=== PATIENT | male | born 1970 | race Caucasian/White ===

== ENCOUNTER 2016-04-15 15:17 | Emergency (ER) | payer MEDICAID ==
[2016-04-15] MEDS ORDERED: Ondansetron 4 MG Tab.DIS PO ONE (17:54)
[2016-04-15 18:08] VITALS: BP 136/84
--- NOTE | 2016-04-15 18:13 | EDM.PDOC ---
ED HPI GENERAL MEDICAL PROBLEM - General Chief Complaint: General Stated Complaint: ILLNESS Time Seen by Provider: 04/15/16 18:10 Source of Information: Reports: Patient, RN notes reviewed History Limitations: Reports: No limitations - History of Present Illness INITIAL COMMENTS - FREE TEXT/NARRATIVE: c/o nausea without vomiting, no diarrhea. Aches all over; lo grade temp. Had flu shot no shortness of breath. Treatments COMMERCIAL LOAN MANAGER: Reports: Other (see below) Other Treatments COMMERCIAL LOAN MANAGER: pepto-bismol Abdomen Pain Score (Numeric/FACES): 10 - Related Data Allergies Allergy/AdvReac Type Severity Reaction Status Date / Time No Known Allergies Allergy Verified 04/15/16 16:39 Home Meds: Home Meds Furosemide [Furosemide] 20 mg PO QAM 03/28/13 [History] Omeprazole [Omeprazole] 40 mg PO QAM 03/28/13 [History] Potassium Chloride [Klor-Con M20] 20 meq PO QAM 03/28/13 [History] Topiramate [Topamax] 50 mg PO BID 03/28/13 [History] Benztropine [Cogentin] 1 mg PO BID 09/23/13 [History] FLUoxetine HCl [Fluoxetine HCl] 20 mg PO DAILY 12/04/13 [History] Montelukast Sodium [Singulair] 10 mg PO BEDTIME 12/04/13 [History] SUMAtriptan Succinate [Sumatriptan Succinate] 50 mg PO ASDIRECTED PRN 12/04/13 [ History] traZODone HCl [Trazodone HCl] 150 mg PO QPM 12/04/13 [History] Ibuprofen [Motrin] 800 mg PO Q6HR 07/21/15 [History] ARIPiprazole [Abilify] 30 mg PO BEDTIME 01/03/16 [History] risperiDONE [risperiDONE] 2 mg PO BEDTIME 01/03/16 [History] traMADol HCl [Ultram] 1 tab PO TID 03/11/16 [History] Past Medical History - Past Health History Medical/Surgical History: Denies Medical/Surgical History HEENT History: Reports: Allergic rhinitis Cardiovascular History: Reports: Hypertension Gastrointestinal History: Reports: GERD Musculoskeletal History: Reports: Fracture, Other (see below) Other Musculoskeletal History: AC separation from previous injury in football 1988. Left shoulder fx with rotator cuff chip from a fall in Mid Dec 2015. Neurological History: Reports: Migraines Psychiatric History: Reports: Anxiety, Depression, Schizophrenia - Infectious Disease History Infectious Disease History: Reports: Chicken pox - Past Surgical History Head Surgeries/Procedures: Reports: None HEENT Surgical History: Reports: Oral surgery Social & Family History - Family History Family Medical History: Noncontributory - Tobacco Use Smoking Status *Q: Current Every Day Smoker Years of Tobacco use: 27 Packs/Tins Daily: 0.5 Used Tobacco, but Quit: No Second Hand Smoke Exposure: No - Caffeine Use Caffeine Use: Reports: Coffee, Energy drinks, Soda - Alcohol Use Days Per Week of Alcohol Use: 1 Number of Drinks Per Day: 1 Total Drinks Per Week: 1 - Recreational Drug Use Recreational Drug Use: No - Living Situation & Occupation Living situation: Reports: single (lives at [facility] Occupation: disabled ED ROS GENERAL - Review of Systems Review Of Systems: See Below Constitutional: Reports: fever HEENT: Reports: No symptoms Respiratory: Reports: cough Cardiovascular: Reports: No symptoms Endocrine: Reports: no symptoms GI/Abdominal: Reports: No symptoms : Reports: no symptoms Musculoskeletal: Reports: other (myalgia) Skin: Reports: no symptoms Neurological: Reports: no symptoms ED EXAM, GENERAL - Physical Exam Exam: See Below Exam Limited By: No limitations General Appearance: alert, WD/WN, no apparent distress Eye Exam: bilateral eye: normal inspection, PERRL Ears: normal external exam, normal canal, normal TMs Nose: normal inspection Throat/Mouth: Normal inspection, Normal lips, Normal gums, Normal oropharynx, Normal voice, No airway compromise Head: atraumatic, normocephalic Neck: normal inspection, supple, full range of motion Respiratory/Chest: no respiratory distress, no accessory muscle use, rhonchi Cardiovascular: regular rate, rhythm GI/Abdominal: soft, non tender, no organomegaly, no distention Extremities: normal inspection, normal range of motion Neurological: alert, oriented, CN II-XII intact, normal cognition, normal gait, no motor/sensory deficits Course - Vital Signs Text/Narrative:: influenza screen negative. feels better after zofran Last Recorded V/S: Last Vital Signs Temp 100 F 04/15/16 18:00 Pulse 101 H 04/15/16 18:00 Resp 14 04/15/16 16:33 BP 136/84 04/15/16 18:00 Pulse Ox 97 04/15/16 18:00 - Orders/Labs/Meds Meds: Medications Discontinued Medications Generic Name Dose Route Start Last Admin Trade Name Stefany PRN Reason Stop Dose Admin Ondansetron HCl 4 mg 04/15/16 17:54 04/15/16 17:59 Zofran Odt PO 04/15/16 17:55 4 mg ONETIME ONE Administration Departure - Departure Time of Disposition: 18:27 Disposition: DC/Tfer to [facility] Condition: good Clinical Impression: Flu syndrome Forms: ED Department Discharge
== END 2016-04-15 18:43 | disposition critical access hospital (66) ==
LOC: JP.ED 15:17
DX: J11.1 Influenza due to unidentified influenza virus with other respiratory manifestations (principal); F17.210 Nicotine dependence, cigarettes, uncomplicated; K21.9 Gastro-esophageal reflux disease without esophagitis; Z79.899 Other long term (current) drug therapy
CPT/HCPCS: 87804; 99284; A9270; 99283

== ENCOUNTER 2016-04-30 13:57 | Emergency (ER) | payer MEDICAID ==
[2016-04-30 15:26] VITALS: BP 137/92
== END 2016-04-30 18:46 | disposition left against medical advice (07) ==
LOC: JP.ED 13:57
DX: Z53.21 Procedure and treatment not carried out due to patient leaving prior to being seen by health care provider (principal)

== ENCOUNTER 2016-06-24 01:11 | Emergency (ER) | payer MEDICAID ==
[2016-06-24] MEDS ORDERED: Ketorolac 60 MG/2 ML SDV IM ONE (01:30)
--- NOTE | 2016-06-24 01:37 | EDM.PDOC ---
[id number] 4d HEADACHE Time Seen by Provider: 06/24/16 01:20 Source of Information: Reports: Patient History Limitations: Reports: No Limitations - History of Present Illness INITIAL COMMENTS - FREE TEXT/NARRATIVE: 46-year-old male well-known to us who comes in with a headache for the last 40 minutes. He took ibuprofen and it "didn't work". He said his pain is 10 out of 10 but he looks comfortable. No nausea or vomiting. He has Imitrex but he doesn't like to take it. He is just asking for a Toradol shot. Onset: Sudden Duration: Hour(s): (Woke up within the last hour) Location: Reports: Head Quality: Reports: Throbbing Severity: Moderate Improves with: Reports: None Associated Symptoms: Reports: No Other Symptoms Headache Pain Score (Numeric/FACES): 10 - Related Data Allergies Allergy/AdvReac Type Severity Reaction Status Date / Time No Known Allergies Allergy Verified 04/15/16 16:39 Home Meds: Home Meds Furosemide [Furosemide] 20 mg PO QAM 03/28/13 [History] Omeprazole [Omeprazole] 40 mg PO QAM 03/28/13 [History] Potassium Chloride [Klor-Con M20] 20 meq PO QAM 03/28/13 [History] Topiramate [Topamax] 50 mg PO BID 03/28/13 [History] Benztropine [Cogentin] 1 mg PO BID 09/23/13 [History] FLUoxetine HCl [Fluoxetine HCl] 20 mg PO DAILY 12/04/13 [History] Montelukast Sodium [Singulair] 10 mg PO BEDTIME 12/04/13 [History] SUMAtriptan Succinate [Sumatriptan Succinate] 50 mg PO ASDIRECTED PRN 12/04/13 [ History] traZODone HCl [Trazodone HCl] 150 mg PO QPM 12/04/13 [History] Ibuprofen [Motrin] 800 mg PO Q6HR 07/21/15 [History] ARIPiprazole [Abilify] 30 mg PO BEDTIME 01/03/16 [History] risperiDONE [risperiDONE] 2 mg PO BEDTIME 01/03/16 [History] traMADol HCl [Ultram] 1 tab PO TID 03/11/16 [History] Past Medical History - Past Health History Medical/Surgical History: Denies Medical/Surgical History HEENT History: Reports: Allergic Rhinitis Cardiovascular History: Reports: Hypertension Gastrointestinal History: Reports: GERD Musculoskeletal History: Reports: Other (See Below), Other (See Below) Other Musculoskeletal History: AC separation from previous injury in football 1988. Left shoulder fx with rotator cuff chip from a fall in Mid Dec 2015. Neurological History: Reports: Migraines Psychiatric History: Reports: Anxiety, Depression, Schizophrenia - Infectious Disease History Infectious Disease History: Reports: Chicken Pox - Past Surgical History Head Surgeries/Procedures: Reports: None HEENT Surgical History: Reports: Oral Surgery Social & Family History - Family History Family Medical History: Noncontributory - Tobacco Use Smoking Status *Q: Heavy Tobacco Smoker Years of Tobacco use: 20 Packs/Tins Daily: 0.5 Used Tobacco, but Quit: No Second Hand Smoke Exposure: No - Caffeine Use Caffeine Use: Reports: Coffee, Soda - Alcohol Use Days Per Week of Alcohol Use: 1 Number of Drinks Per Day: 1 Total Drinks Per Week: 1 - Recreational Drug Use Recreational Drug Use: No - Living Situation & Occupation Living situation: Reports: Single Occupation: Disabled ED ROS GENERAL - Review of Systems Review Of Systems: See Below Constitutional: Denies: Fever, Chills HEENT: Reports: Other (Some photophobia) Respiratory: Denies: Shortness of Breath Cardiovascular: Denies: Chest Pain GI/Abdominal: Denies: Abdominal Pain, Nausea, Vomiting : Reports: No Symptoms Skin: Reports: No Symptoms Neurological: Reports: Headache - Physical Exam Exam: See Below Exam Limited By: No Limitations General Appearance: Alert, No Apparent Distress Eye Exam: Bilateral Eye: EOMI Head Exam: Atraumatic Neck: Non-Tender Respiratory/Chest: No Respiratory Distress Neuro Exam (Abbreviated): Alert, No Motor/Sensory Deficits (No difficulty with ambulation or apparent asymmetric weakness) Course - Vital Signs Last Recorded V/S: Last Vital Signs Temp 96.4 F 06/24/16 01:23 Pulse 83 06/24/16 01:23 Resp 16 06/24/16 01:23 BP 141/89 H 06/24/16 01:23 Pulse Ox 99 06/24/16 01:23 - Orders/Labs/Meds Meds: Medications Discontinued Medications Generic Name Dose Route Start Last Admin Trade Name Freq PRN Reason Stop Dose Admin Ketorolac Tromethamine 60 mg 06/24/16 01:30 06/24/16 01:36 Toradol IM 06/24/16 01:31 60 mg ONETIME ONE Administration - Re-Assessments/Exams Free Text/Narrative Re-Assessment/Exam: 06/24/16 01:35 Patient was given an injection of Toradol 60 mg IM. He can recheck with his primary doctor next week if he has concerns. Departure - Departure Time of Disposition: 01:42 Disposition: Home, Self-Care 01 Condition: good Clinical Impression: Migraine - Discharge Information Instructions: Migraine Headache Referrals: PCP,None [Primary Care Provider] - Forms: ED Department Discharge Care Plan Goals: Rest tonight and recheck with Dr. Powers next week if you're still having problems.
[2016-06-24 02:26] VITALS: BP 141/89
== END 2016-06-24 01:42 | disposition home or self-care (01) ==
LOC: JP.ED 01:11
DX: G43.909 Migraine, unspecified, not intractable, without status migrainosus (principal); K21.9 Gastro-esophageal reflux disease without esophagitis; F41.9 Anxiety disorder, unspecified; F32.9 Major depressive disorder, single episode, unspecified; F20.9 Schizophrenia, unspecified; F17.210 Nicotine dependence, cigarettes, uncomplicated; Z79.899 Other long term (current) drug therapy; Z98.890 Other specified postprocedural states
CPT/HCPCS: 96372; 99284; J1885

== ENCOUNTER 2016-06-26 17:14 | Emergency (ER) | payer MEDICAID ==
[2016-06-26] MEDS ORDERED: Ondansetron 4 MG Tab.DIS PO ONE (18:30)
--- NOTE | 2016-06-26 19:03 | EDM.PDOC ---
[id number] Complaint: SOB,NAUSEATED Time Seen by Provider: 06/26/16 18:15 Source of Information: Reports: Patient History Limitations: Reports: No Limitations - History of Present Illness INITIAL COMMENTS - FREE TEXT/NARRATIVE: 46-year-old male was in with nausea for the past 12 hours. Intermittent abdominal discomfort. No fevers or chills. His headache apparently has improved. He has some occasional dizziness. Abdomen Pain Score (Numeric/FACES): 8 - Related Data Allergies Allergy/AdvReac Type Severity Reaction Status Date / Time No Known Allergies Allergy Verified 06/26/16 18:11 Home Meds: Home Meds Furosemide [Furosemide] 20 mg PO QAM 03/28/13 [History] Omeprazole [Omeprazole] 40 mg PO QAM 03/28/13 [History] Potassium Chloride [Klor-Con M20] 20 meq PO QAM 03/28/13 [History] Topiramate [Topamax] 50 mg PO BID 03/28/13 [History] Benztropine [Cogentin] 1 mg PO BID 09/23/13 [History] FLUoxetine HCl [Fluoxetine HCl] 20 mg PO DAILY 12/04/13 [History] Montelukast Sodium [Singulair] 10 mg PO BEDTIME 12/04/13 [History] SUMAtriptan Succinate [Sumatriptan Succinate] 50 mg PO ASDIRECTED PRN 12/04/13 [ History] traZODone HCl [Trazodone HCl] 150 mg PO QPM 12/04/13 [History] ARIPiprazole [Abilify] 30 mg PO BEDTIME 01/03/16 [History] risperiDONE [risperiDONE] 2 mg PO BEDTIME 01/03/16 [History] Past Medical History - Past Health History Medical/Surgical History: Denies Medical/Surgical History HEENT History: Reports: Allergic Rhinitis Cardiovascular History: Reports: Hypertension Gastrointestinal History: Reports: GERD Musculoskeletal History: Reports: Other (See Below), Other (See Below) Other Musculoskeletal History: AC separation from previous injury in football 1988. Left shoulder fx with rotator cuff chip from a fall in Mid Dec 2015. Neurological History: Reports: Migraines Psychiatric History: Reports: Anxiety, Depression, Schizophrenia - Infectious Disease History Infectious Disease History: Reports: Chicken Pox - Past Surgical History Head Surgeries/Procedures: Reports: None HEENT Surgical History: Reports: Oral Surgery Social & Family History - Family History Family Medical History: Noncontributory - Tobacco Use Smoking Status *Q: Current Every Day Smoker Years of Tobacco use: 20 Packs/Tins Daily: 0.5 Used Tobacco, but Quit: No Second Hand Smoke Exposure: No - Caffeine Use Caffeine Use: Reports: Coffee - Alcohol Use Days Per Week of Alcohol Use: 1 Number of Drinks Per Day: 1 Total Drinks Per Week: 1 - Recreational Drug Use Recreational Drug Use: Yes Recreational Drug Type: Reports: Marijuana/Hashish Recreational Drug Use Frequency: Not Used In Over 6 Months - Living Situation & Occupation Living situation: Reports: Single Occupation: Disabled ED ROS GENERAL - Review of Systems Review Of Systems: See Below Constitutional: Reports: Malaise. Denies: Fever, Chills HEENT: Reports: No Symptoms Respiratory: Denies: Cough Cardiovascular: Denies: Chest Pain GI/Abdominal: Reports: Abdominal Pain, Nausea. Denies: Diarrhea, Vomiting Skin: Reports: No Symptoms Neurological: Reports: Dizziness. Denies: Headache ED EXAM, GI/ABD - Physical Exam Exam: See Below Exam Limited By: No Limitations General Appearance: Alert, No Apparent Distress Eyes: Bilateral: Normal Appearance Respiratory/Chest: No Respiratory Distress, Lungs Clear Cardiovascular: Regular Rate, Rhythm GI/Abdominal: Normal Bowel Sounds, Soft, Tenderness (A slight amount of reported tenderness to palpation in the left upper quadrant but no guarding) Course - Vital Signs Last Recorded V/S: Last Vital Signs Temp 96.8 F 06/26/16 19:40 Pulse 96 06/26/16 19:40 Resp 16 06/26/16 19:40 BP 108/68 06/26/16 19:40 Pulse Ox 95 06/26/16 19:40 - Orders/Labs/Meds Labs: Laboratory Tests 06/26/16 06/26/16 06/26/16 Range/Units 18:41 18:41 18:41 WBC 8.0 (4.5-11.0) K/uL RBC 5.05 (4.30-5.90) M/uL Hgb 15.1 H (12.0-15.0) g/dL Hct 44.0 (40.0-54.0) % MCV 87 (80-98) fL MCH 30 (27-31) pg MCHC 34 (32-36) % Plt Count 443 H (150-400) K/uL Neut % (Auto) 75 H (36-66) % Lymph % (Auto) 18 L (24-44) % [place] % (Auto) 5 (2-6) % Eos % (Auto) 1 L (2-4) % Baso % (Auto) 1 (0-1) % Sodium 142 (140-148) mmol/L Potassium 3.5 L (3.6-5.2) mmol/L Chloride 105 (100-108) mmol/L Carbon Dioxide 26 (21-32) mmol/L Anion Gap 14.5 H (5.0-14.0) mmol/L BUN 14 (7-18) mg/dL Creatinine 1.2 (0.8-1.3) mg/dL Est Cr Clr Drug Dosing 82.29 mL/min Estimated GFR (MDRD) > 60 (>60) Glucose 90 (74-106) mg/dL Calcium 8.4 L (8.5-10.1) mg/dL Lipase 188 (73-393) U/L Meds: Medications Discontinued Medications Generic Name Dose Route Start Last Admin Trade Name Freq PRN Reason Stop Dose Admin Ondansetron HCl 4 mg 06/26/16 18:30 06/26/16 18:38 Zofran Odt PO 06/26/16 18:31 4 mg ONETIME ONE Administration - Re-Assessments/Exams Free Text/Narrative Re-Assessment/Exam: 06/26/16 19:02 Patient was given one sublingual Zofran and a CBC, CMP and lipase were checked. Expectations are labs will be normal as this patient tends to have a very somatic personality 06/26/16 19:06 Labs are normal and the patient continued to feel comfortable. He'll be discharged with some extra doses of sublingual Zofran to take as needed and he can return if worsening. Departure - Departure Time of Disposition: 19:49 Disposition: Home, Self-Care 01 Condition: good Clinical Impression: Nausea alone Abdominal pain Qualifiers: Abdominal location: left upper quadrant Qualified Code(s): R10.12 - Left upper quadrant pain - Discharge Information Instructions: Abdominal Pain, Adult, [id number] Referrals: Awais Powers MD [Primary Care Provider] - Forms: ED Department Discharge Care Plan Goals: Use Zofran for nausea if needed increase diet and activity as tolerated. Recheck at the clinic later this week if you are not improving satisfactorily.
[2016-06-26 19:49] VITALS: BP 108/68
== END 2016-06-26 19:49 | disposition home or self-care (01) ==
LOC: JP.ED 17:14
DX: R10.12 Left upper quadrant pain (principal); R11.0 Nausea; I10 Essential (primary) hypertension; K21.9 Gastro-esophageal reflux disease without esophagitis; G43.909 Migraine, unspecified, not intractable, without status migrainosus; F41.9 Anxiety disorder, unspecified; F32.9 Major depressive disorder, single episode, unspecified; F17.210 Nicotine dependence, cigarettes, uncomplicated; Z79.899 Other long term (current) drug therapy; Z98.890 Other specified postprocedural states
CPT/HCPCS: 36415; 80048; 83690; 85025; 99283; A9270

== ENCOUNTER 2016-07-01 02:36 | Emergency (ER) | payer MEDICAID ==
[2016-07-01 03:04] VITALS: BP 146/94
[2016-07-01] MEDS ORDERED: Ondansetron 4 MG Tab.DIS PO ONE (03:13)
--- NOTE | 2016-07-01 03:22 | EDM.PDOC ---
ED HPI GENERAL MEDICAL PROBLEM - General Chief Complaint: Gastrointestinal Problem Stated Complaint: VOMITING Time Seen by Provider: 07/01/16 02:56 Source of Information: Reports: Patient History Limitations: Reports: No Limitations - History of Present Illness INITIAL COMMENTS - FREE TEXT/NARRATIVE: nausea; request medication for nausea. He was seen in ER on 06/26/2016, given pills for nause. The pills are all gone. now having nausea again. denies any fever , chills, vomiting, diarrhea, rash or any other symptoms. plans to see his Primary Care Provider this coming week. 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 Medication(s) - Related Data Allergies Allergy/AdvReac Type Severity Reaction Status Date / Time No Known Allergies Allergy Verified 06/26/16 18:11 Home Meds: Home Meds Furosemide [Furosemide] 20 mg PO QAM 03/28/13 [History] Omeprazole [Omeprazole] 40 mg PO QAM 03/28/13 [History] Potassium Chloride [Klor-Con M20] 20 meq PO QAM 03/28/13 [History] Topiramate [Topamax] 50 mg PO BID 03/28/13 [History] Benztropine [Cogentin] 1 mg PO BID 09/23/13 [History] FLUoxetine HCl [Fluoxetine HCl] 20 mg PO DAILY 12/04/13 [History] Montelukast Sodium [Singulair] 10 mg PO BEDTIME 12/04/13 [History] SUMAtriptan Succinate [Sumatriptan Succinate] 50 mg PO ASDIRECTED PRN 12/04/13 [ History] traZODone HCl [Trazodone HCl] 150 mg PO QPM 12/04/13 [History] ARIPiprazole [Abilify] 30 mg PO BEDTIME 01/03/16 [History] risperiDONE [risperiDONE] 2 mg PO BEDTIME 01/03/16 [History] Past Medical History - Past Health History Medical/Surgical History: Denies Medical/Surgical History HEENT History: Reports: Allergic Rhinitis Cardiovascular History: Reports: Hypertension Gastrointestinal History: Reports: GERD Musculoskeletal History: Reports: Other (See Below), Other (See Below) Other Musculoskeletal History: AC separation from previous injury in football 1988. Left shoulder fx with rotator cuff chip from a fall in Mid Dec 2015. Neurological History: Reports: Migraines Psychiatric History: Reports: Anxiety, Depression, Schizophrenia - Infectious Disease History Infectious Disease History: Reports: Chicken Pox - Past Surgical History Head Surgeries/Procedures: Reports: None HEENT Surgical History: Reports: Oral Surgery Social & Family History - Family History Family Medical History: Noncontributory - Tobacco Use Smoking Status *Q: Current Every Day Smoker Years of Tobacco use: 20 Packs/Tins Daily: 0.5 Used Tobacco, but Quit: No Second Hand Smoke Exposure: Yes - Caffeine Use Caffeine Use: Reports: Coffee - Alcohol Use Days Per Week of Alcohol Use: 1 Number of Drinks Per Day: 1 Total Drinks Per Week: 1 - Recreational Drug Use Recreational Drug Use: Yes Recreational Drug Type: Reports: Marijuana/Hashish Recreational Drug Use Frequency: Not Used In Over 6 Months - Living Situation & Occupation Living situation: Reports: Single Occupation: Disabled ED ROS GENERAL - Review of Systems Review Of Systems: See Below Constitutional: Reports: No Symptoms HEENT: Reports: No Symptoms Respiratory: Reports: No Symptoms Cardiovascular: Reports: No Symptoms Endocrine: Reports: No Symptoms GI/Abdominal: Reports: Nausea : Reports: No Symptoms Musculoskeletal: Reports: No Symptoms Skin: Reports: No Symptoms Neurological: Reports: No Symptoms Psychiatric: Reports: No Symptoms Hematologic/Lymphatic: Reports: No Symptoms Immunologic: Reports: No Symptoms ED EXAM, GI/ABD - Physical Exam Exam: See Below Exam Limited By: No Limitations General Appearance: Alert, WD/WN, No Apparent Distress Eyes: Bilateral: Normal Appearance Ears: Normal External Exam, Normal Canal, Hearing Grossly Normal, Normal TMs Nose: Normal Inspection, Normal Mucosa, No Blood Throat/Mouth: Normal Inspection, Normal Lips, Normal Teeth Head: Atraumatic, Normocephalic Neck: Normal Inspection, Supple, Non-Tender, Full Range of Motion Respiratory/Chest: No Respiratory Distress, Lungs Clear, Normal Breath Sounds, No Accessory Muscle Use, Chest Non-Tender Cardiovascular: Regular Rate, Rhythm, No Edema, No Murmur GI/Abdominal: Normal Bowel Sounds, Soft, No Distention, No Abnormal Bruit, No Mass, Tenderness (epigastric area secondary to nausea) (Male) Exam: Deferred Rectal (Males) Exam: Deferred Back Exam: Normal Inspection, Full Range of Motion Extremities: Normal Inspection, Normal Range of Motion, Non-Tender, No Pedal Edema, Normal Capillary Refill Neurological: Alert, Oriented, Normal Cognition, Normal Gait, Normal Reflexes, No Motor/Sensory Deficits Psychiatric: Normal Affect, Normal Mood Skin Exam: Warm, Dry, Intact, Normal Color, No Rash Lymphatic: No Adenopathy Course - Vital Signs Last Recorded V/S: Last Vital Signs Temp 36.3 C 07/01/16 03:00 Pulse 97 07/01/16 03:00 Resp 16 07/01/16 03:00 BP 146/94 H 07/01/16 03:00 Pulse Ox 94 L 07/01/16 03:00 - Orders/Labs/Meds Meds: Medications Discontinued Medications Generic Name Dose Route Start Last Admin Trade Name Stefany PRN Reason Stop Dose Admin Ondansetron HCl 4 mg 07/01/16 03:13 Zofran Odt PO 07/01/16 03:14 ONETIME ONE - Re-Assessments/Exams Free Text/Narrative Re-Assessment/Exam: 07/01/16 03:28 request for medication refill for chronic nausea, no other concerns. Departure - Departure Time of Disposition: 03:29 Disposition: Home, Self-Care 01 Condition: good Clinical Impression: Nausea alone - Discharge Information Referrals: Awais Powers MD [Primary Care Provider] - Forms: ED Department Discharge Care Plan Goals: Nausea -Zofran odt one every 8 hours as needed for nausea #15 tablets -avoid spicy, salty or greasy food -Make appointment to see Primary Care Provider this week. return to clinic or er if not improved or symptoms worsen. - Problem List & Annotations (1) Nausea alone SNOMED Code(s): 619614393 Code(s): R11.0 - NAUSEA Status: Acute Priority: Medium Current Visit: No - Problem List Review Problem List Initiated/Reviewed/Updated: Yes - Assessment/Plan Plan: Nausea -Zofran odt one every 8 hours as needed for nausea #15 tablets -avoid spicy, salty or greasy food -Make appointment to see Primary Care Provider this week. return to clinic or er if not improved or symptoms worsen.
== END 2016-07-01 03:49 | disposition home or self-care (01) ==
LOC: JP.ED 02:36
DX: R11.0 Nausea (principal); I10 Essential (primary) hypertension; K21.9 Gastro-esophageal reflux disease without esophagitis; G43.909 Migraine, unspecified, not intractable, without status migrainosus; F41.9 Anxiety disorder, unspecified; F32.9 Major depressive disorder, single episode, unspecified; F17.210 Nicotine dependence, cigarettes, uncomplicated; Z98.890 Other specified postprocedural states; Z79.899 Other long term (current) drug therapy
CPT/HCPCS: 99283; A9270

== ENCOUNTER 2016-07-16 13:07 | Emergency (ER) | payer MEDICAID ==
[2016-07-16 13:47] VITALS: BP 118/78
[2016-07-16] MEDS ORDERED: Ketorolac 60 MG/2 ML SDV IM ONE (14:04)
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
[2016-07-16] MEDS ORDERED: Acetaminophen/HYDROcodone 325-5 MG Tab PO ONE (14:48)
== END 2016-07-16 14:55 | disposition home or self-care (01) ==
LOC: JP.ED 13:07
DX: S00.12XA Contusion of left eyelid and periocular area, initial encounter (principal); R51 Headache; I10 Essential (primary) hypertension; K21.9 Gastro-esophageal reflux disease without esophagitis; F41.9 Anxiety disorder, unspecified; F32.9 Major depressive disorder, single episode, unspecified; F20.9 Schizophrenia, unspecified; F17.210 Nicotine dependence, cigarettes, uncomplicated; Z98.890 Other specified postprocedural states; Z79.899 Other long term (current) drug therapy; W50.0XXA Accidental hit or strike by another person, initial encounter
CPT/HCPCS: 96372; 99283; 99284; A9270; J1885

== ENCOUNTER 2016-07-18 12:06 | Emergency (ER) | payer MEDICAID ==
[2016-07-18 12:18] VITALS: BP 124/76
[2016-07-18] MEDS ORDERED: Ketorolac 60 MG/2 ML SDV IM ONE (12:28)
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
== END 2016-07-18 12:46 | disposition home or self-care (01) ==
LOC: JP.ED 12:06
DX: G44.309 Post-traumatic headache, unspecified, not intractable (principal); F17.210 Nicotine dependence, cigarettes, uncomplicated; I10 Essential (primary) hypertension; K21.9 Gastro-esophageal reflux disease without esophagitis; F32.9 Major depressive disorder, single episode, unspecified; F41.9 Anxiety disorder, unspecified; G43.909 Migraine, unspecified, not intractable, without status migrainosus; Z79.899 Other long term (current) drug therapy
CPT/HCPCS: 96372; 99284; J1885; 99282

== ENCOUNTER 2016-07-19 02:35 | Emergency (ER) | payer MEDICAID ==
[2016-07-19 02:46] VITALS: BP 127/85
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
[2016-07-19] MEDS ORDERED: Ketorolac 60 MG/2 ML SDV IM ONE (04:20)
== END 2016-07-19 04:31 | disposition home or self-care (01) ==
LOC: JP.ED 02:35
DX: R51 Headache (principal); F17.210 Nicotine dependence, cigarettes, uncomplicated; G43.909 Migraine, unspecified, not intractable, without status migrainosus; F32.9 Major depressive disorder, single episode, unspecified; F41.9 Anxiety disorder, unspecified; Z79.899 Other long term (current) drug therapy
CPT/HCPCS: 70450; 96372; 99284; J1885

== ENCOUNTER 2016-07-23 01:40 | Emergency (ER) | payer MEDICAID ==
[2016-07-23 02:24] VITALS: BP 133/88
--- NOTE | 2016-07-23 02:50 | EDM.PDOC ---
ED HPI GENERAL MEDICAL PROBLEM - General Chief Complaint: Gastrointestinal Problem Stated Complaint: VOMITING Time Seen by Provider: 07/23/16 02:39 Source of Information: Reports: Patient History Limitations: Reports: No Limitations - History of Present Illness INITIAL COMMENTS - FREE TEXT/NARRATIVE: History of present illness: [46-year-old male presents requesting something for nausea. Patient is getting set up for an upper lower endoscopy. He has not been vomiting he's had no fevers or chills cough or cold symptoms chest pain or shortness of breath. He' s basically just requesting something for nausea and wants to be on his way.] Review of systems: As per history of present illness and below otherwise all systems reviewed and negative. Past medical history: As per history of present illness and as reviewed below otherwise noncontributory. Surgical history: As per history of present illness and as reviewed below otherwise noncontributory. Social history: No reported history of drug or alcohol abuse. Family history: As per history of present illness and as reviewed below otherwise noncontributory. Physical exam: HEENT: Atraumatic, normocephalic, Lungs: Clear to auscultation Heart: S1S2, regular, tachy Abdomen: Soft, nondistended, nontender. Negative for masses or hepatosplenomegaly. Negative for costovertebral tenderness. Extremities: Atraumatic, negative for cords or calf pain. Neurovascular unremarkable. Neuro: Awake, alert, oriented. Exam nonfocal. Diagnostics: [] Therapeutics: [] Impression: [nausea] Plan: [he'll be setup with 15 Zofran with one refill. He is awaiting a phone call regarding what he scheduled for his endoscopies.] Definitive disposition and diagnosis as appropriate pending reevaluation and review of above. - Related Data Allergies Allergy/AdvReac Type Severity Reaction Status Date / Time No Known Allergies Allergy Verified 07/23/16 02:24 Home Meds: Home Meds Furosemide [Furosemide] 20 mg PO QAM 03/28/13 [History] Omeprazole [Omeprazole] 40 mg PO QAM 03/28/13 [History] Potassium Chloride [Klor-Con M20] 20 meq PO QAM 03/28/13 [History] Topiramate [Topamax] 50 mg PO BID 03/28/13 [History] Benztropine [Cogentin] 1 mg PO BID 09/23/13 [History] FLUoxetine HCl [Fluoxetine HCl] 20 mg PO DAILY 12/04/13 [History] Montelukast Sodium [Singulair] 10 mg PO BEDTIME 12/04/13 [History] SUMAtriptan Succinate [Sumatriptan Succinate] 50 mg PO ASDIRECTED PRN 12/04/13 [ History] traZODone HCl [Trazodone HCl] 150 mg PO QPM 12/04/13 [History] ARIPiprazole [Abilify] 30 mg PO BEDTIME 01/03/16 [History] risperiDONE [risperiDONE] 2 mg PO BEDTIME 01/03/16 [History] Past Medical History - Past Health History Medical/Surgical History: Denies Medical/Surgical History HEENT History: Reports: Allergic Rhinitis Cardiovascular History: Reports: Hypertension Gastrointestinal History: Reports: GERD Musculoskeletal History: Reports: Other (See Below), Other (See Below) Other Musculoskeletal History: AC separation from previous injury in football 1988. Left shoulder fx with rotator cuff chip from a fall in Mid Dec 2015. Neurological History: Reports: Migraines Psychiatric History: Reports: Anxiety, Depression, Schizophrenia - Infectious Disease History Infectious Disease History: Reports: Chicken Pox - Past Surgical History Head Surgeries/Procedures: Reports: None HEENT Surgical History: Reports: Oral Surgery Social & Family History - Family History Family Medical History: Noncontributory - Tobacco Use Smoking Status *Q: Current Every Day Smoker Years of Tobacco use: 25 Packs/Tins Daily: 0.5 Used Tobacco, but Quit: No Second Hand Smoke Exposure: Yes - Caffeine Use Caffeine Use: Reports: Coffee, Tea - Alcohol Use Days Per Week of Alcohol Use: 1 Number of Drinks Per Day: 1 Total Drinks Per Week: 1 - Recreational Drug Use Recreational Drug Use: Yes Recreational Drug Type: Reports: Marijuana/Hashish Recreational Drug Use Frequency: Not Used In Over 6 Months - Living Situation & Occupation Living situation: Reports: Single Occupation: Disabled ED ROS GENERAL - Review of Systems Review Of Systems: ROS reveals no pertinent complaints other than HPI. ED EXAM, GI/ABD - Physical Exam Exam: See Below Course - Vital Signs Last Recorded V/S: Last Vital Signs Temp 36.5 C 07/23/16 01:45 Pulse 112 H 07/23/16 01:45 Resp 18 07/23/16 01:45 BP 133/88 07/23/16 01:45 Pulse Ox 96 07/23/16 01:45 Departure - Departure Time of Disposition: 02:49 Disposition: Home, Self-Care 01 Condition: good Clinical Impression: Nausea - Discharge Information Forms: ED Department Discharge Additional Instructions: please return to the emergency room if her symptoms are getting worse and you' re not improving especially if you start vomiting and is not controlled with medications that were giving you. Hopefully you'll be up to get your endoscopies done soon.
== END 2016-07-23 03:01 | disposition home or self-care (01) ==
LOC: JP.ED 01:40
DX: R11.0 Nausea (principal); I10 Essential (primary) hypertension; K21.9 Gastro-esophageal reflux disease without esophagitis; F41.9 Anxiety disorder, unspecified; G43.909 Migraine, unspecified, not intractable, without status migrainosus; F32.9 Major depressive disorder, single episode, unspecified; F17.210 Nicotine dependence, cigarettes, uncomplicated; Z79.899 Other long term (current) drug therapy; Z98.890 Other specified postprocedural states
CPT/HCPCS: 99283

== ENCOUNTER 2016-07-27 21:01 | Emergency (ER) | payer MEDICAID ==
[2016-07-27 21:11] VITALS: BP 136/84
[2016-07-27] MEDS ORDERED: Promethazine 25 MG/ML SDV IM ONE (21:31)
--- NOTE | 2016-07-27 21:36 | EDM.PDOC ---
ED HPI GENERAL MEDICAL PROBLEM - General Chief Complaint: Abdominal Pain Stated Complaint: ABD PAIN Time Seen by Provider: 07/27/16 21:08 Source of Information: Reports: Patient History Limitations: Reports: No Limitations - History of Present Illness INITIAL COMMENTS - FREE TEXT/NARRATIVE: History of present illness: [This 46-year-old male I saw 5 days ago. He was having bloody stools. He scheduled for colonoscopy on Saturday. He's had trouble with nausea and vomiting and has responded well to Phenergan. His other Phenergan and basically is presenting asking for more Phenergan. He's had no fevers or chills syncopal or presyncopal episodes. He stated that the surgeon decided just to do the colonoscopy and not the upper endoscopy.] Review of systems: As per history of present illness and below otherwise all systems reviewed and negative. Past medical history: As per history of present illness and as reviewed below otherwise noncontributory. Surgical history: As per history of present illness and as reviewed below otherwise noncontributory. Social history: No reported history of drug or alcohol abuse. Family history: As per history of present illness and as reviewed below otherwise noncontributory. Physical exam: HEENT: Atraumatic, normocephalic, pupils reactive, negative for conjunctival pallor or scleral icterus, mucous membranes moist, throat clear, neck supple, nontender, trachea midline. Lungs: Clear to auscultation, breath sounds equal bilaterally, chest nontender. Heart: S1S2, regular, negative for clicks, rubs, or JVD. Abdomen: Soft, nondistended, nontender. Negative for masses or hepatosplenomegaly. Negative for costovertebral tenderness. Extremities: Atraumatic, negative for cords or calf pain. Neurovascular unremarkable. Neuro: Awake, alert, oriented. Diagnostics: [] Therapeutics: [] Impression: [Nausea and vomiting] Plan: [Phenergan 25 mg IM is given plus he is provided with Phenergan tablets to take at home.] Definitive disposition and diagnosis as appropriate pending reevaluation and review of above. - Related Data Allergies Allergy/AdvReac Type Severity Reaction Status Date / Time No Known Allergies Allergy Verified 07/26/16 13:14 Home Meds: Home Meds Furosemide [Furosemide] 20 mg PO QAM 03/28/13 [History] Omeprazole [Omeprazole] 40 mg PO QAM 03/28/13 [History] Potassium Chloride [Klor-Con M20] 20 meq PO QAM 03/28/13 [History] Topiramate [Topamax] 50 mg PO BID 03/28/13 [History] Benztropine [Cogentin] 1 mg PO BID 09/23/13 [History] FLUoxetine HCl [Fluoxetine HCl] 20 mg PO DAILY 12/04/13 [History] Montelukast Sodium [Singulair] 10 mg PO BEDTIME 12/04/13 [History] SUMAtriptan Succinate [Sumatriptan Succinate] 50 mg PO ASDIRECTED PRN 12/04/13 [ History] traZODone HCl [Trazodone HCl] 150 mg PO QPM 12/04/13 [History] ARIPiprazole [Abilify] 20 mg PO BEDTIME 01/03/16 [History] risperiDONE [risperiDONE] 2 mg PO BEDTIME 01/03/16 [History] tiZANidine [Zanaflex] 4 mg PO TID PRN 07/26/16 [History] Past Medical History - Past Health History Medical/Surgical History: Denies Medical/Surgical History HEENT History: Reports: Allergic Rhinitis Cardiovascular History: Reports: Hypertension Gastrointestinal History: Reports: GERD Musculoskeletal History: Reports: Other (See Below), Other (See Below) Other Musculoskeletal History: AC separation from previous injury in football 1988. Left shoulder fx with rotator cuff chip from a fall in Mid Dec 2015. Neurological History: Reports: Migraines Psychiatric History: Reports: Anxiety, Depression, Schizophrenia - Infectious Disease History Infectious Disease History: Reports: Chicken Pox - Past Surgical History Head Surgeries/Procedures: Reports: None HEENT Surgical History: Reports: Oral Surgery Social & Family History - Family History Family Medical History: Noncontributory - Tobacco Use Smoking Status *Q: Current Every Day Smoker Years of Tobacco use: 25 Packs/Tins Daily: 0.5 Used Tobacco, but Quit: No Second Hand Smoke Exposure: Yes - Caffeine Use Caffeine Use: Reports: Coffee, Energy Drinks, Soda, Tea - Alcohol Use Days Per Week of Alcohol Use: 1 Number of Drinks Per Day: 1 Total Drinks Per Week: 1 - Recreational Drug Use Recreational Drug Use: Yes Drug Use in Last 12 Months: Yes Recreational Drug Type: Reports: Marijuana/Hashish Recreational Drug Use Frequency: Rarely - Living Situation & Occupation Living situation: Reports: Single Occupation: Disabled ED ROS GENERAL - Review of Systems Review Of Systems: ROS reveals no pertinent complaints other than HPI. ED EXAM, GI/ABD - Physical Exam Exam: See Below Course - Vital Signs Last Recorded V/S: Last Vital Signs Temp 36.3 C 07/27/16 21:10 Pulse 110 H 07/27/16 21:10 Resp 18 07/27/16 21:10 BP 136/84 07/27/16 21:10 Pulse Ox 98 07/27/16 21:10 - Orders/Labs/Meds Meds: Medications Discontinued Medications Generic Name Dose Route Start Last Admin Trade Name Freq PRN Reason Stop Dose Admin Promethazine HCl 25 mg 07/27/16 21:31 Phenergan IM 07/27/16 21:32 ONETIME ONE Departure - Departure Time of Disposition: 21:35 Disposition: Home, Self-Care 01 Condition: Good Clinical Impression: Nausea and vomiting Qualifiers: Vomiting type: unspecified Vomiting Intractability: non-intractable Qualified Code(s): R11.2 - Nausea with vomiting, unspecified - Discharge Information Forms: ED Department Discharge Additional Instructions: Please be sure to follow-up on Saturday for your colonoscopy and follow all of the instructions that have been given you regarding preparation for your colonoscopy.
== END 2016-07-27 21:49 | disposition home or self-care (01) ==
LOC: JP.ED 21:01
DX: R11.2 Nausea with vomiting, unspecified (principal); F17.210 Nicotine dependence, cigarettes, uncomplicated; I10 Essential (primary) hypertension; K21.9 Gastro-esophageal reflux disease without esophagitis; G43.909 Migraine, unspecified, not intractable, without status migrainosus; Z98.890 Other specified postprocedural states; Z79.899 Other long term (current) drug therapy
CPT/HCPCS: 96372; 99284; J2550; 99283

== ENCOUNTER 2016-08-02 00:32 | Emergency (ER) | payer MEDICAID ==
[2016-08-02] MEDS ORDERED: Ketorolac 30 MG/ML SDV IM ONE (01:09)
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
[2016-08-02 02:46] VITALS: BP 122/76
== END 2016-08-02 02:46 | disposition home or self-care (01) ==
LOC: JP.ED 00:32
DX: G43.909 Migraine, unspecified, not intractable, without status migrainosus (principal); F17.210 Nicotine dependence, cigarettes, uncomplicated; I10 Essential (primary) hypertension; K21.9 Gastro-esophageal reflux disease without esophagitis; F41.9 Anxiety disorder, unspecified; F32.9 Major depressive disorder, single episode, unspecified; Z98.890 Other specified postprocedural states; Z79.899 Other long term (current) drug therapy
CPT/HCPCS: 96372; 99284; J1885; 99283

== ENCOUNTER 2016-08-03 08:18 | Day surgery (SDC) | payer MEDICAID ==
[2016-08-03] MEDS ORDERED: Midazolam 1 MG/ML 2 ML SDV ONE (08:42)
[2016-08-03] MEDS ORDERED: fentaNYL 100 MCG/2 ML SDV ONE (08:42)
[2016-08-03] MEDS ORDERED: Propofol 200 MG/20 ML SDV ONE ×2 (08:42→09:36)
[2016-08-03] MEDS ORDERED: Lactated Ringers 1,000 ML IV SCH (08:45)
[2016-08-03 11:12] VITALS: BP 114/77
--- NOTE | 2016-08-03 11:31 | OR ---
DATE OF PROCEDURE: 08/03/2016 PREOPERATIVE DIAGNOSIS: Abdominal pain, blood in stool. POSTOPERATIVE DIAGNOSES: Gastroesophageal reflux disease, mild gastritis, unremarkable colonoscopy. PROCEDURE: Esophagogastroduodenoscopy with antral biopsies for CLOtest and for pathology to look for Helicobacter pylori, biopsy of gastroesophageal junction, colonoscopy to the cecum. SURGEON: Lincoln Mandel MD ANESTHESIA: IV anesthesia with monitored anesthesia care. INDICATION: This 46-year-old white male is referred for upper and lower endoscopy. The indication for the upper endoscopy is abdominal pain. The indication for the colonoscopy is blood in stool. I counseled him for upper and lower endoscopy with possible biopsy and/or polypectomy including risks and alternatives, and he gave his informed consent to proceed. DESCRIPTION OF PROCEDURE: The patient was placed in the left lateral decubitus position. IV anesthesia was administered by the Anesthesia Service. Time-out was held. The flexible video Olympus upper endoscope was passed through his mouth, down the esophagus, and into his stomach. The scope was easily passed through the pylorus into the duodenum reaching its third portion. The scope was then slowly withdrawn examining the mucosa throughout. The duodenal mucosa appeared unremarkable. The scope was brought back through the pylorus into the antrum. There was mild erythema in the antrum consistent with mild gastritis. We obtained biopsies here for CLOtest and sent for pathology to look for Helicobacter pylori. The scope was retroflexed. The proximal stomach appeared unremarkable. The scope was straightened and brought up to the GE junction. This was markedly abnormal with fingers of gastric mucosa going proximally up into the esophagus. There were also islands of gastric mucosa in the distal esophagus. We obtained multiple totalling six biopsies of the gastroesophageal junction. The scope was then brought proximally through the remainder of the esophagus, which otherwise appeared unremarkable and it was removed. Next, a rectal exam was performed, which was unremarkable. The flexible video Olympus colonoscope was introduced through his anus, up his rectum, and out his colon all the way to the cecum. Once the cecum was reached, the scope was slowly withdrawn examining the mucosa throughout. No mucosal abnormalities were noted. We saw no old or new blood anywhere in the lower gastrointestinal tract nor really anything that we would expect to bleed. The scope was retroflexed in the rectum with the distal rectum appearing unremarkable. The scope was straightened and removed. He tolerated the procedure well. Lincoln Mandel MD /[id number] [place]
== END 2016-08-03 11:30 | disposition home or self-care (01) ==
LOC: JP.SDS 08:18
PROVIDERS: ATTEND Surgery
DX: K31.89 Other diseases of stomach and duodenum (principal); K21.9 Gastro-esophageal reflux disease without esophagitis; G47.33 Obstructive sleep apnea (adult) (pediatric); F17.200 Nicotine dependence, unspecified, uncomplicated
CPT/HCPCS: 43239; 45378; 87081; J2250; J2704; J3010; J7120; 88305

== ENCOUNTER 2016-08-05 18:48 | Emergency (ER) | payer MEDICAID ==
[2016-08-05 19:25] VITALS: BP 129/80
--- NOTE | 2016-08-05 19:41 | EDM.PDOC ---
[id number] Complaint: SCOPE COLONOSCOPY Sat Time Seen by Provider: 08/05/16 19:38 Source of Information: Reports: Patient History Limitations: Reports: No Limitations - History of Present Illness INITIAL COMMENTS - FREE TEXT/NARRATIVE: 46-year-old male well-known to this emergency room with frequent visits had a colonoscopy Saturday for "blood in stool", the colonoscopy was normal but his EGD did show gastritis. He is in today because he feels gassy and is still having discomfort. Onset: Gradual ( patient says he is somewhat worse since his scopes) Location: Reports: Abdomen abd Pain Score (Numeric/FACES): 8 - Related Data Allergies Allergy/AdvReac Type Severity Reaction Status Date / Time No Known Allergies Allergy Verified 08/05/16 19:25 Home Meds: Home Meds Furosemide [Furosemide] 20 mg PO QAM 03/28/13 [History] Omeprazole [Omeprazole] 40 mg PO QAM 03/28/13 [History] Potassium Chloride [Klor-Con M20] 20 meq PO QAM 03/28/13 [History] Topiramate [Topamax] 50 mg PO BID 03/28/13 [History] Benztropine [Cogentin] 1 mg PO BID 09/23/13 [History] FLUoxetine HCl [Fluoxetine HCl] 40 mg PO DAILY 12/04/13 [History] Montelukast Sodium [Singulair] 10 mg PO DAILY 12/04/13 [History] SUMAtriptan Succinate [Sumatriptan Succinate] 50 mg PO ASDIRECTED PRN 12/04/13 [ History] traZODone HCl [Trazodone HCl] 150 mg PO QPM 12/04/13 [History] ARIPiprazole [Abilify] 20 mg PO BEDTIME 01/03/16 [History] risperiDONE [risperiDONE] 2 mg PO BEDTIME 01/03/16 [History] Past Medical History - Past Health History Medical/Surgical History: Denies Medical/Surgical History HEENT History: Reports: Allergic Rhinitis Cardiovascular History: Reports: Hypertension Respiratory History: Reports: Sleep Apnea Gastrointestinal History: Reports: GERD Musculoskeletal History: Reports: Other (See Below), Other (See Below) Other Musculoskeletal History: AC separation from previous injury in football 1988. Left shoulder fx with rotator cuff chip from a fall in Mid Dec 2015. Neurological History: Reports: Concussion, Migraines Psychiatric History: Reports: Anxiety, Depression, Schizophrenia - Infectious Disease History Infectious Disease History: Reports: Chicken Pox - Past Surgical History Head Surgeries/Procedures: Reports: None HEENT Surgical History: Reports: Oral Surgery GI Surgical History: Reports: Colonoscopy, EGD Social & Family History - Family History Family Medical History: Noncontributory - Tobacco Use Smoking Status *Q: Current Every Day Smoker Years of Tobacco use: 25 Packs/Tins Daily: 0.5 Used Tobacco, but Quit: No Month Tobacco Last Used: July Second Hand Smoke Exposure: No - Caffeine Use Caffeine Use: Reports: Coffee - Alcohol Use Days Per Week of Alcohol Use: 1 Number of Drinks Per Day: 1 Total Drinks Per Week: 1 - Recreational Drug Use Recreational Drug Use: Yes Drug Use in Last 12 Months: Yes Recreational Drug Type: Reports: Marijuana/Hashish Other Recreational Drug Type: Used marijuana 1 month ago Recreational Drug Use Frequency: Monthly - Living Situation & Occupation Living situation: Reports: Single Occupation: Disabled ED ROS GENERAL - Review of Systems Review Of Systems: See Below Constitutional: Denies: Fever, Chills Respiratory: Denies: Shortness of Breath Cardiovascular: Denies: Chest Pain (Present) GI/Abdominal: Reports: Nausea. Denies: Vomiting (I reassured him) : Reports: No Symptoms Skin: Reports: No Symptoms Neurological: Reports: No Symptoms ED EXAM, GI/ABD - Physical Exam Exam: See Below Exam Limited By: No Limitations General Appearance: Alert, No Apparent Distress Respiratory/Chest: No Respiratory Distress, Lungs Clear GI/Abdominal: Normal Bowel Sounds, Soft Neurological: Alert, Oriented Psychiatric: Normal Affect, Normal Mood Course - Vital Signs Last Recorded V/S: Last Vital Signs Temp 98.4 F 08/05/16 19:22 Pulse 85 08/05/16 19:22 Resp 16 08/05/16 19:22 BP 129/80 08/05/16 19:22 Pulse Ox 98 08/05/16 19:22 - Re-Assessments/Exams Free Text/Narrative Re-Assessment/Exam: 08/05/16 19:45 Reviewed his procedure results, his colonoscopy was normal. He did have gastritis. Apparently his sister who is his legal guardian is going to take care of the follow-up appointments and care. He feels he needs something for nausea, although he does not appear nauseous and is not vomiting. I told him no further treatment is needed at this time, resume his regular diet avoid eating any spicy or strong foods, a bland diet would be best until he can recheck after his scopes. He is going to continue with the Protonix. Departure - Departure Time of Disposition: 19:53 Disposition: Home, Self-Care 01 Condition: Good Clinical Impression: Nausea alone - Discharge Information Instructions: Nausea, Adult, [id number] Referrals: Awais Powers MD [Primary Care Provider] - Forms: ED Department Discharge Care Plan Goals: Advance diet slowly mostly with a bland diet initially. Continue your regular medications. Follow-up with your regular doctor as recommended to discuss results from your tests.
== END 2016-08-05 19:53 | disposition home or self-care (01) ==
LOC: JP.ED 18:48
DX: R11.0 Nausea (principal); I10 Essential (primary) hypertension; F17.210 Nicotine dependence, cigarettes, uncomplicated; K21.9 Gastro-esophageal reflux disease without esophagitis; Z98.890 Other specified postprocedural states; Z79.899 Other long term (current) drug therapy
CPT/HCPCS: 99282; 99283

== ENCOUNTER 2016-08-16 16:20 | Emergency (ER) | payer MEDICAID ==
[2016-08-16] MEDS ORDERED: Ketorolac 30 MG/ML SDV IVPUSH ONE (19:17)
[2016-08-16] MEDS ORDERED: Lactated Ringers 1,000 ML IV ONE (19:17)
[2016-08-16] MEDS ORDERED: Sodium Chloride 0.9% 10 ML Syringe FLUSH PRN (19:17)
[2016-08-16] MEDS ORDERED: Prochlorperazine 10 MG/2 ML SDV IVPUSH ONE (19:17)
[2016-08-16] MEDS ORDERED: diphenhydrAMINE 50 MG/ML SDV IVPUSH ONE (19:17)
--- NOTE | 2016-08-16 19:20 | EDM.PDOC ---
ED HPI GENERAL MEDICAL PROBLEM - General Chief Complaint: Headache Stated Complaint: MIGRAINE Time Seen by Provider: 08/16/16 19:07 Source of Information: Reports: Patient, Old Records, RN Notes Reviewed History Limitations: Reports: No Limitations - History of Present Illness INITIAL COMMENTS - FREE TEXT/NARRATIVE: 46-year-old gentleman presents emergency department day complaint of migraine type headache he has a long-standing history of migraines he states this was started this morning he's been unable to break it does have some nausea some photophobia states the headache is typical for him on the right side 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 Headache Pain Score (Numeric/FACES): 10 - Related Data Allergies Allergy/AdvReac Type Severity Reaction Status Date / Time No Known Allergies Allergy Verified 08/16/16 17:02 Home Meds: Home Meds Furosemide [Furosemide] 20 mg PO QAM 03/28/13 [History] Omeprazole [Omeprazole] 40 mg PO QAM 03/28/13 [History] Potassium Chloride [Klor-Con M20] 20 meq PO QAM 03/28/13 [History] Topiramate [Topamax] 50 mg PO BID 03/28/13 [History] Benztropine [Cogentin] 1 mg PO BID 09/23/13 [History] FLUoxetine HCl [Fluoxetine HCl] 40 mg PO DAILY 12/04/13 [History] Montelukast Sodium [Singulair] 10 mg PO DAILY 12/04/13 [History] SUMAtriptan Succinate [Sumatriptan Succinate] 50 mg PO ASDIRECTED PRN 12/04/13 [ History] traZODone HCl [Trazodone HCl] 150 mg PO QPM 12/04/13 [History] ARIPiprazole [Abilify] 20 mg PO BEDTIME 01/03/16 [History] risperiDONE [risperiDONE] 2 mg PO BEDTIME 01/03/16 [History] Past Medical History HEENT History: Reports: Allergic Rhinitis Cardiovascular History: Reports: Hypertension Respiratory History: Reports: Sleep Apnea Gastrointestinal History: Reports: GERD Musculoskeletal History: Reports: Other (See Below), Other (See Below) Other Musculoskeletal History: AC separation from previous injury in football 1988. Left shoulder fx with rotator cuff chip from a fall in Mid Dec 2015. Neurological History: Reports: Concussion, Migraines Psychiatric History: Reports: Anxiety, Depression, Schizophrenia - Infectious Disease History Infectious Disease History: Reports: Chicken Pox - Past Surgical History Head Surgeries/Procedures: Reports: None HEENT Surgical History: Reports: Oral Surgery GI Surgical History: Reports: Colonoscopy, EGD Social & Family History - Family History Family Medical History: Noncontributory - Tobacco Use Smoking Status *Q: Current Every Day Smoker Years of Tobacco use: 30 Packs/Tins Daily: 1 Used Tobacco, but Quit: No Month Tobacco Last Used: July Second Hand Smoke Exposure: No - Caffeine Use Caffeine Use: Reports: Coffee - Alcohol Use Days Per Week of Alcohol Use: 1 Number of Drinks Per Day: 1 Total Drinks Per Week: 1 - Recreational Drug Use Recreational Drug Use: Yes Drug Use in Last 12 Months: Yes Recreational Drug Type: Reports: Marijuana/Hashish Other Recreational Drug Type: Used marijuana 1 month ago Recreational Drug Use Frequency: Monthly - Living Situation & Occupation Living situation: Reports: Single Occupation: Disabled ED ROS GENERAL - Review of Systems Review Of Systems: See Below Constitutional: Denies: Fever, Chills HEENT: Reports: No Symptoms Respiratory: Reports: No Symptoms Cardiovascular: Reports: No Symptoms GI/Abdominal: Reports: Nausea : Reports: No Symptoms Musculoskeletal: Reports: No Symptoms Skin: Reports: No Symptoms Neurological: Reports: Headache - Physical Exam Exam: See Below Exam Limited By: No Limitations General Appearance: Alert Eye Exam: Bilateral Eye: EOMI, Normal Fundi, Normal Inspection, PERRL Respiratory/Chest: No Respiratory Distress, Lungs Clear, Normal Breath Sounds, No Accessory Muscle Use Cardiovascular: Regular Rate, Rhythm, No Murmur Course - Vital Signs Last Recorded V/S: Last Vital Signs Temp 98.2 F 08/16/16 19:11 Pulse 88 08/16/16 19:11 Resp 14 08/16/16 19:11 BP 95/60 08/16/16 19:11 Pulse Ox 98 08/16/16 19:11 - Orders/Labs/Meds Orders: Active Orders 24 hr Category Date Time Status Peripheral IV Care [RC] . DIRECTED Care 08/16/16 19:17 Active Sodium Chloride 0.9% [Saline Flush] Med 08/16/16 19:17 Active 10 ml FLUSH ASDIRECTED PRN Peripheral IV Insertion Adult [OM.PC] Urgent Oth 08/16/16 19:16 Ordered Medication Orders Sodium Chloride (Saline Flush) 10 ml FLUSH ASDIRECTED PRN PRN Reason: Keep Vein Open Last Admin: 08/16/16 19:46 Dose: 10 ml Meds: Medications Generic Name Dose Route Start Last Admin Trade Name Stefany PRN Reason Stop Dose Admin Sodium Chloride 10 ml 08/16/16 19:17 08/16/16 19:46 Saline Flush FLUSH 10 ml ASDIRECTED PRN Administration Keep Vein Open Discontinued Medications Generic Name Dose Route Start Last Admin Trade Name Stefany PRN Reason Stop Dose Admin Diphenhydramine HCl 25 mg 08/16/16 19:17 08/16/16 19:46 Benadryl IVPUSH 08/16/16 19:18 25 mg ONETIME ONE Administration Lactated Ringer's 1,000 mls @ 999 mls/hr 08/16/16 19:17 08/16/16 19:46 Ringers, Lactated IV 08/16/16 20:17 999 mls/hr BOLUS ONE Administration Ketorolac Tromethamine 30 mg 08/16/16 19:17 08/16/16 19:51 Toradol IVPUSH 08/16/16 19:18 30 mg ONETIME ONE Administration Prochlorperazine Edisylate 5 mg 08/16/16 19:17 08/16/16 19:46 Compazine IVPUSH 08/16/16 19:18 5 mg ONETIME ONE Administration Departure - Departure Time of Disposition: 20:56 Disposition: Home, Self-Care 01 Condition: Good Clinical Impression: Migraine Qualifiers: Migraine type: unspecified Status migrainosus presence: without status migrainosus Intractability: not intractable Qualified Code(s): G43.909 - Migraine, unspecified, not intractable, without status migrainosus - Discharge Information Forms: ED Department Discharge Additional Instructions: Continue home medications, Please followup with your primary care provider in 3 -5 days if not better, please call return to the emergency department with worsening of symptoms. - My Orders Last 24 Hours: My Active Orders 08/16/16 19:16 Peripheral IV Insertion Adult [OM.PC] Urgent 08/16/16 19:17 Peripheral IV Care [RC] . DIRECTED Sodium Chloride 0.9% [Saline Flush] 10 ml FLUSH ASDIRECTED PRN - Assessment/Plan Last 24 Hours: My Active Orders 08/16/16 19:16 Peripheral IV Insertion Adult [OM.PC] Urgent 08/16/16 19:17 Peripheral IV Care [RC] . DIRECTED Sodium Chloride 0.9% [Saline Flush] 10 ml FLUSH ASDIRECTED PRN Plan: Assessment Acuity = acute Site and laterality = migraine type headache Etiology = unclear etiology Manifestations = none Location of injury = Home Lab values = none Plan He had good improvement with combination Toradol, Benadryl and fluids as well as Compazine plan to follow up with primary care next 3-5 days if no improvement Patient was in agreement with the plan all questions were answered, they were instructed to return to the emergency department or call for worsening symptoms. This note was dictated using [employer] voice recognition software please call with any questions.
[2016-08-16 22:19] VITALS: BP 91/65
== END 2016-08-16 22:25 | disposition home or self-care (01) ==
LOC: JP.ED 16:20
DX: G43.909 Migraine, unspecified, not intractable, without status migrainosus (principal); F17.210 Nicotine dependence, cigarettes, uncomplicated; K21.9 Gastro-esophageal reflux disease without esophagitis; I10 Essential (primary) hypertension; F41.9 Anxiety disorder, unspecified; F32.9 Major depressive disorder, single episode, unspecified; Z79.899 Other long term (current) drug therapy; Z98.890 Other specified postprocedural states
CPT/HCPCS: 96361; 96374; 96375; 99283; J0780; J1200; J1885; J7050; J7120

== ENCOUNTER 2016-08-17 19:08 | Emergency (ER) | payer MEDICAID ==
[2016-08-17 19:23] VITALS: BP 107/66
[2016-08-17] MEDS ORDERED: Ketorolac 60 MG/2 ML SDV IM ONE (19:23)
--- NOTE | 2016-08-17 19:27 | EDM.PDOC ---
ED HPI GENERAL MEDICAL PROBLEM - General Chief Complaint: Chest Pain Stated Complaint: CHEST PAIN Time Seen by Provider: 08/17/16 19:16 Source of Information: Reports: Patient, Old Records, RN Notes Reviewed History Limitations: Reports: No Limitations - History of Present Illness INITIAL COMMENTS - FREE TEXT/NARRATIVE: 46-year-old gentleman presents emergency department today with complaint of chest pain I had the chance to evaluate him last night for migraine headache he was treated with combination Toradol Benadryl and Compazine the headache resolved he was discharged home early in the evening. When I asked him when the chest pain started he said it's been going on for about 24 hours and when I confronted him about his recent ER stay and he corrected himself and stated the chest pain started this morning at 8:00. He denies any nausea or vomiting no diaphoresis no shortness of breath he has no cardiac history, only risk factor is tobacco Left Chest Pain Score (Numeric/FACES): 9 - Related Data Allergies Allergy/AdvReac Type Severity Reaction Status Date / Time No Known Allergies Allergy Verified 08/16/16 17:02 Home Meds: Home Meds Furosemide [Furosemide] 20 mg PO QAM 03/28/13 [History] Omeprazole [Omeprazole] 40 mg PO QAM 03/28/13 [History] Potassium Chloride [Klor-Con M20] 20 meq PO QAM 03/28/13 [History] Topiramate [Topamax] 50 mg PO BID 03/28/13 [History] Benztropine [Cogentin] 1 mg PO BID 09/23/13 [History] FLUoxetine HCl [Fluoxetine HCl] 40 mg PO DAILY 12/04/13 [History] Montelukast Sodium [Singulair] 10 mg PO DAILY 12/04/13 [History] SUMAtriptan Succinate [Sumatriptan Succinate] 50 mg PO ASDIRECTED PRN 12/04/13 [ History] traZODone HCl [Trazodone HCl] 150 mg PO QPM 12/04/13 [History] ARIPiprazole [Abilify] 20 mg PO BEDTIME 01/03/16 [History] risperiDONE [risperiDONE] 2 mg PO BEDTIME 01/03/16 [History] Past Medical History HEENT History: Reports: Allergic Rhinitis Cardiovascular History: Reports: Hypertension Respiratory History: Reports: Sleep Apnea Gastrointestinal History: Reports: GERD Musculoskeletal History: Reports: Other (See Below), Other (See Below) Other Musculoskeletal History: AC separation from previous injury in football 1988. Left shoulder fx with rotator cuff chip from a fall in Mid Dec 2015. Neurological History: Reports: Concussion, Migraines Psychiatric History: Reports: Anxiety, Depression, Schizophrenia - Infectious Disease History Infectious Disease History: Reports: Chicken Pox - Past Surgical History Head Surgeries/Procedures: Reports: None HEENT Surgical History: Reports: Oral Surgery GI Surgical History: Reports: Colonoscopy, EGD Social & Family History - Family History Family Medical History: Noncontributory - Tobacco Use Smoking Status *Q: Current Every Day Smoker Years of Tobacco use: 30 Packs/Tins Daily: 1 Used Tobacco, but Quit: No Month Tobacco Last Used: July Hand Smoke Exposure: No - Caffeine Use Caffeine Use: Reports: Coffee - Alcohol Use Days Per Week of Alcohol Use: 1 Number of Drinks Per Day: 1 Total Drinks Per Week: 1 - Recreational Drug Use Recreational Drug Use: Yes Drug Use in Last 12 Months: Yes Recreational Drug Type: Reports: Marijuana/Hashish Other Recreational Drug Type: Used marijuana 1 month ago Recreational Drug Use Frequency: Monthly - Living Situation & Occupation Living situation: Reports: Single Occupation: Disabled ED ROS GENERAL - Review of Systems Review Of Systems: See Below Constitutional: Reports: No Symptoms HEENT: Reports: No Symptoms Respiratory: Reports: No Symptoms Cardiovascular: Reports: Chest Pain GI/Abdominal: Reports: No Symptoms : Reports: No Symptoms Musculoskeletal: Reports: No Symptoms Skin: Reports: No Symptoms Neurological: Reports: No Symptoms ED EXAM, GENERAL - Physical Exam Exam: See Below Free Text/Narrative:: General: Male, moderate discomfort secondary to pain, alert and oriented x3 HEENT: head is atraumatic normocephalic, eyes pupils equal round reactive to light, sclera clear no conjunctivitis appreciated. Ears tympanic membranes clear and silver landmarks and light reflex are present bilaterally canals are clear. Nose no septal deviation, nares are clear, no blood present. Mouth mucosa is moist and pink no erythema or exudate noted in soft palate, tongue is midline uvula is midline, dentition is intact. Neck: Supple no thyromegaly no tracheal deviation. Nodes: Cervical nodes subclavicular nodes nontender no palpable lymphadenopathy noted. Lungs: clear to auscultation bilaterally with symmetrical respirations, no adventitious noise appreciated. CV: Regular rate and rhythm S1 and S2 appreciated no murmurs rubs or gallops noted. Chest he is tender to palpation medial to the nipple on the left side Abdomen: Soft, nontender, no palpable masses or organomegaly appreciated, no distention no guarding bowel sounds are present, . Neuro: Cranial nerves II through XII grossly intact Skin: Warm and dry, intact Extremities: No lower extremity edema appreciated, Course - Vital Signs Last Recorded V/S: Last Vital Signs Temp 99.3 F 08/17/16 19:18 Pulse 99 08/17/16 19:18 Resp 18 08/17/16 19:18 BP 107/66 08/17/16 19:18 Pulse Ox 96 08/17/16 19:18 - Orders/Labs/Meds Orders: Active Orders 24 hr Category Date Time Status Cardiac Monitoring [RC] .As Directed Care 08/17/16 19:21 Active EKG Documentation Completion [RC] ASDIRECTED Care 08/17/16 19:22 Active Chest 2V [CR] Stat Exams 08/17/16 19:22 Taken EKG 12 Lead [EK] Stat Ther 08/17/16 19:22 Ordered Labs: Laboratory Tests 08/17/16 08/17/16 08/17/16 Range/Units 19:32 19:32 19:47 WBC 13.6 H (4.5-11.0) K/uL RBC 4.54 (4.30-5.90) M/uL Hgb 13.7 (12.0-15.0) g/dL Hct 40.2 (40.0-54.0) % MCV 89 (80-98) fL MCH 30 (27-31) pg MCHC 34 (32-36) % Plt Count 258 (150-400) K/uL Neut % (Auto) 81 H (36-66) % Lymph % (Auto) 12 L (24-44) % Canyon % (Auto) 7 H (2-6) % Eos % (Auto) 1 L (2-4) % Baso % (Auto) 0 (0-1) % Sodium 138 L (140-148) mmol/L Potassium 3.1 L (3.6-5.2) mmol/L Chloride 103 (100-108) mmol/L Carbon Dioxide 27 (21-32) mmol/L Anion Gap 11.1 (5.0-14.0) mmol/L BUN 16 (7-18) mg/dL Creatinine 1.5 H (0.8-1.3) mg/dL Est Cr Clr Drug Dosing 65.83 mL/min Estimated GFR (MDRD) 50 L (>60) Glucose 125 H (74-106) mg/dL Calcium 8.1 L (8.5-10.1) mg/dL Total Bilirubin 0.6 D (0.2-1.0) mg/dL AST 31 (15-37) U/L ALT 21 (12-78) U/L Alkaline Phosphatase 51 (46-116) U/L CK-MB (CK-2) 3.0 (0-3.6) mg/mL Troponin I < 0.017 (0.000-0.056) ng/mL Total Protein 6.9 (6.4-8.2) g/dL Albumin 3.4 (3.4-5.0) g/dL Globulin 3.5 (2.3-3.5) g/dL Albumin/Globulin Ratio 1.0 L (1.2-2.2) Urine Color Urine Appearance Urine pH (4.5-8.0) Ur Specific Bellflower (1.008-1.030) Urine Protein (NEGATIVE) mg/dL Urine Glucose (UA) (NEGATIVE) mg/dL Urine Ketones (NEGATIVE) mg/dL Urine Occult Blood (NEGATIVE) Urine Nitrite (NEGAITVE) Urine Bilirubin (NEGATIVE) Urine Urobilinogen (NORMAL) mg/dL Ur Leukocyte Esterase (NEGATIVE) Urine RBC (0-5) Urine WBC (0-5) Ur Epithelial Cells Amorphous Sediment Urine Bacteria Urine Mucus Urine Opiates Screen Negative (NEGATIVE) Ur Oxycodone Screen Negative (NEGATIVE) Urine Methadone Screen Negative (NEGATIVE) Ur Propoxyphene Screen Negative (NEGATIVE) Ur Barbiturates Screen Negative (NEGATIVE) Ur Tricyclics Screen Negative (NEGATIVE) Ur Phencyclidine Scrn Negative (NEGATIVE) Ur Amphetamine Screen Negative (NEGATIVE) U Methamphetamines Scrn Positive H (NEGATIVE) Urine MDMA Screen Negative (NEGATIVE) U Benzodiazepines Scrn Positive H (NEGATIVE) U Cocaine Metab Screen Negative (NEGATIVE) U Marijuana (THC) Screen Positive H (NEGATIVE) 08/17/16 Range/Units 19:47 WBC (4.5-11.0) K/uL RBC (4.30-5.90) M/uL Hgb (12.0-15.0) g/dL Hct (40.0-54.0) % MCV (80-98) fL MCH (27-31) pg MCHC (32-36) % Plt Count (150-400) K/uL Neut % (Auto) (36-66) % Lymph % (Auto) (24-44) % Canyon % (Auto) (2-6) % Eos % (Auto) (2-4) % Baso % (Auto) (0-1) % Sodium (140-148) mmol/L Potassium (3.6-5.2) mmol/L Chloride (100-108) mmol/L Carbon Dioxide (21-32) mmol/L Anion Gap (5.0-14.0) mmol/L BUN (7-18) mg/dL Creatinine (0.8-1.3) mg/dL Est Cr Clr Drug Dosing mL/min Estimated GFR (MDRD) (>60) Glucose (74-106) mg/dL Calcium (8.5-10.1) mg/dL Total Bilirubin (0.2-1.0) mg/dL AST (15-37) U/L ALT (12-78) U/L Alkaline Phosphatase (46-116) U/L CK-MB (CK-2) (0-3.6) mg/mL Troponin I (0.000-0.056) ng/mL Total Protein (6.4-8.2) g/dL Albumin (3.4-5.0) g/dL Globulin (2.3-3.5) g/dL Albumin/Globulin Ratio (1.2-2.2) Urine Color Yellow Urine Appearance Clear Urine pH 6.0 (4.5-8.0) Ur Specific [place]flower 1.010 (1.008-1.030) Urine Protein Negative (NEGATIVE) mg/dL Urine Glucose (UA) Normal (NEGATIVE) mg/dL Urine Ketones Negative (NEGATIVE) mg/dL Urine Occult Blood Negative (NEGATIVE) Urine Nitrite Negative (NEGAITVE) Urine Bilirubin Negative (NEGATIVE) Urine Urobilinogen Normal (NORMAL) mg/dL Ur Leukocyte Esterase Negative (NEGATIVE) Urine RBC 0-5 (0-5) Urine WBC 0-5 (0-5) Ur Epithelial Cells Not seen Amorphous Sediment Few Urine Bacteria Not seen Urine Mucus Few Urine Opiates Screen (NEGATIVE) Ur Oxycodone Screen (NEGATIVE) Urine Methadone Screen (NEGATIVE) Ur Propoxyphene Screen (NEGATIVE) Ur Barbiturates Screen (NEGATIVE) Ur Tricyclics Screen (NEGATIVE) Ur Phencyclidine Scrn (NEGATIVE) Ur Amphetamine Screen (NEGATIVE) U Methamphetamines Scrn (NEGATIVE) Urine MDMA Screen (NEGATIVE) U Benzodiazepines Scrn (NEGATIVE) U Cocaine Metab Screen (NEGATIVE) U Marijuana (THC) Screen (NEGATIVE) Meds: Medications Discontinued Medications Generic Name Dose Route Start Last Admin Trade Name Freq PRN Reason Stop Dose Admin Ketorolac Tromethamine 60 mg 08/17/16 19:23 08/17/16 19:34 Toradol IM 08/17/16 19:24 60 mg ONETIME ONE Administration Departure - Departure Time of Disposition: 20:47 Disposition: Home, Self-Care 01 Condition: Fair Clinical Impression: Chest wall pain, Methamphetamine use Instructions: Nonspecific Chest Pain, [id number] Forms: ED Department Discharge Additional Instructions: Continue to use ibuprofen as needed for chest wall pain, please refrain from using any more methamphetamine, Please followup with your primary care provider in 3-5 days if not better, please call return to the emergency department with worsening of symptoms. - My Orders Last 24 Hours: My Active Orders 08/17/16 19:21 Cardiac Monitoring [RC] .As Directed 08/17/16 19:22 EKG Documentation Completion [RC] ASDIRECTED Chest 2V [CR] Stat EKG 12 Lead [EK] Stat - Assessment/Plan Last 24 Hours: My Active Orders 08/17/16 19:21 Cardiac Monitoring [RC] .As Directed 08/17/16 19:22 EKG Documentation Completion [RC] ASDIRECTED Chest 2V [CR] Stat EKG 12 Lead [EK] Stat Plan: Assessment Acuity = acute Site and laterality = chest pain complicated patient with known schizophrenia and use of methamphetamine and cannabis Etiology = probably related to anxiety and panic Manifestations = none Location of injury = Home Lab values = WBC elevated at 13.6 consistent leukocytosis, sodium low at 138 consistent hyponatremia potassium low at 3.1 consistent hypokalemia creatinine elevated 1.5 consistent chronic renal failure stage GII troponin is negative urinalysis negative EKG demonstrates a sinus rhythm no ST changes chest x-ray I did review films myself I cannot appreciate any acute process, the official read from radiology is pending urine drug screen positive for methamphetamine, benzodiazepines and cannabis Plan Recommend stop using methamphetamine follow-up with primary care 3-5 days for reevaluation ibuprofen 600 mg provided Patient was in agreement with the plan all questions were answered, they were instructed to return to the emergency department or call for worsening symptoms. This note was dictated using [employer] voice recognition software please call with any questions.
--- NOTE | 2016-08-20 10:43 | CR ---
Chest 2V INDICATION: Chest Pain FINDINGS: Comparison 04/14/2015. Slight blunting of the left costophrenic angle, unchanged. Small amou nt of pleural fluid or pleural thickening in the major fissure anteriorly on the lateral view. Small nodular opacities in the right midlung are new since prior exam and are nonspecific. Recommend foll ow-up chest x-ray in 4-6 weeks or nonemergent follow-up noncontrast chest CT.
== END 2016-08-17 21:01 | disposition home or self-care (01) ==
LOC: JP.ED 19:08
DX: R07.89 Other chest pain (principal); F15.90 Other stimulant use, unspecified, uncomplicated; I10 Essential (primary) hypertension; G47.30 Sleep apnea, unspecified; K21.9 Gastro-esophageal reflux disease without esophagitis; F41.9 Anxiety disorder, unspecified; F20.9 Schizophrenia, unspecified; F32.9 Major depressive disorder, single episode, unspecified; F17.210 Nicotine dependence, cigarettes, uncomplicated; Z79.899 Other long term (current) drug therapy; Z98.890 Other specified postprocedural states
CPT/HCPCS: 36415; 71020; 80053; 80305; 81001; 82553; 84484; 85025; 93005; 96372; 99285; J1885; 93010; 99284

== ENCOUNTER 2016-08-18 23:40 | Emergency (ER) | payer MEDICAID ==
[2016-08-19 01:05] VITALS: BP 122/75
[2016-08-19] MEDS ORDERED: Albuterol 0.083% 2.5 MG/3 ML Neb Soln NEB ONE (02:13)
[2016-08-19] MEDS ORDERED: Ketorolac 30 MG/ML SDV IM ONE (02:13)
--- NOTE | 2016-08-19 02:38 | EDM.PDOC ---
ED HPI GENERAL MEDICAL PROBLEM - General Chief Complaint: General Stated Complaint: HEART PAIN Time Seen by Provider: 08/19/16 02:06 Source of Information: Reports: Patient History Limitations: Reports: No Limitations - History of Present Illness INITIAL COMMENTS - FREE TEXT/NARRATIVE: Chest discomfort; this is a 46 year old male presents to ER for evaluation of chest pain; has been seen 3 times in the ER for this same concerns since August 16. He points his left nipple area as being painful. Smokes half a pack a day. denies smoking meth today, denies IV drug use for a very long time. denies any fever or chills. Reports has not used today, reports he snorts meth, and the last time he did, the meth was very strong. Onset: Gradual Location: Reports: Chest Quality: Reports: Ache, Burning Severity: Moderate Improves with: Reports: None Worsens with: Reports: None heart Pain Score (Numeric/FACES): 8 - Related Data Allergies Allergy/AdvReac Type Severity Reaction Status Date / Time No Known Allergies Allergy Verified 08/19/16 01:06 Home Meds: Home Meds Furosemide [Furosemide] 20 mg PO QAM 03/28/13 [History] Omeprazole [Omeprazole] 40 mg PO QAM 03/28/13 [History] Potassium Chloride [Klor-Con M20] 20 meq PO QAM 03/28/13 [History] Topiramate [Topamax] 50 mg PO BID 03/28/13 [History] Benztropine [Cogentin] 1 mg PO BID 09/23/13 [History] FLUoxetine HCl [Fluoxetine HCl] 40 mg PO DAILY 12/04/13 [History] Montelukast Sodium [Singulair] 10 mg PO DAILY 12/04/13 [History] SUMAtriptan Succinate [Sumatriptan Succinate] 50 mg PO ASDIRECTED PRN 12/04/13 [ History] traZODone HCl [Trazodone HCl] 150 mg PO QPM 12/04/13 [History] ARIPiprazole [Abilify] 20 mg PO BEDTIME 01/03/16 [History] risperiDONE [risperiDONE] 2 mg PO BEDTIME 01/03/16 [History] Past Medical History HEENT History: Reports: Allergic Rhinitis Cardiovascular History: Reports: Hypertension Respiratory History: Reports: Sleep Apnea Gastrointestinal History: Reports: GERD Musculoskeletal History: Reports: Other (See Below), Other (See Below) Other Musculoskeletal History: AC separation from previous injury in football 1988. Left shoulder fx with rotator cuff chip from a fall in Mid Dec 2015. Neurological History: Reports: Concussion, Migraines Psychiatric History: Reports: Anxiety, Depression, Schizophrenia - Infectious Disease History Infectious Disease History: Reports: Chicken Pox - Past Surgical History Head Surgeries/Procedures: Reports: None HEENT Surgical History: Reports: Oral Surgery GI Surgical History: Reports: Colonoscopy, EGD Social & Family History - Family History Family Medical History: Noncontributory - Tobacco Use Smoking Status *Q: Current Every Day Smoker Years of Tobacco use: 35 Packs/Tins Daily: 0.5 Used Tobacco, but Quit: No Month Tobacco Last Used: July Second Hand Smoke Exposure: No - Caffeine Use Caffeine Use: Reports: Coffee, Energy Drinks, Soda, Tea - Alcohol Use Days Per Week of Alcohol Use: 1 Number of Drinks Per Day: 1 Total Drinks Per Week: 1 - Recreational Drug Use Recreational Drug Use: Yes Drug Use in Last 12 Months: Yes Recreational Drug Type: Reports: Methamphetamine Other Recreational Drug Type: Used marijuana 1 month ago Recreational Drug Use Frequency: Monthly - Living Situation & Occupation Living situation: Reports: Single Occupation: Disabled ED ROS GENERAL - Review of Systems Review Of Systems: See Below Constitutional: Reports: No Symptoms HEENT: Reports: No Symptoms Respiratory: Reports: Pleuritic Chest Pain Cardiovascular: Reports: No Symptoms Endocrine: Reports: No Symptoms GI/Abdominal: Reports: No Symptoms : Reports: No Symptoms Musculoskeletal: Reports: No Symptoms Skin: Reports: No Symptoms Neurological: Reports: No Symptoms Psychiatric: Reports: No Symptoms Hematologic/Lymphatic: Reports: No Symptoms Immunologic: Reports: No Symptoms ED EXAM, GENERAL - Physical Exam Exam: See Below Exam Limited By: No Limitations General Appearance: Alert, WD/WN, No Apparent Distress Ears: Normal External Exam, Normal Canal, Hearing Grossly Normal, Normal TMs Ear Exam: Bilateral Ear: Auricle Normal, Canal Normal, TM normal Nose: Normal Inspection, Normal Mucosa, No Blood Throat/Mouth: Normal Inspection, Normal Lips, Normal Teeth, Normal Gums, Normal Oropharynx, Normal Voice, No Airway Compromise Head: Atraumatic, Normocephalic Neck: Normal Inspection, Supple, Non-Tender, Full Range of Motion Respiratory/Chest: Crackles, Wheezing (bilateral, more increased on left side.) , Other (points to left chest as being tender. does not radiate to arms or neck. ) Cardiovascular: Normal Peripheral Pulses, Regular Rate, Rhythm, No Edema, No Gallop, No JVD, No Murmur, No Rub GI/Abdominal: Normal Bowel Sounds, Soft, Non-Tender, No Organomegaly, No Distention, No Abnormal Bruit, No Mass (Male) Exam: Deferred Rectal (Males) Exam: Deferred Extremities: Normal Inspection, Normal Range of Motion, Non-Tender, Normal Capillary Refill, No Pedal Edema Neurological: Alert, Oriented, Normal Cognition, Normal Gait Psychiatric: Normal Affect, Normal Mood Skin Exam: Warm, Dry, Intact, Normal Color, No Rash Lymphatic: No Adenopathy Course - Vital Signs Last Recorded V/S: Last Vital Signs Temp 36.1 C 08/19/16 01:01 Pulse 87 08/19/16 01:01 Resp 15 08/19/16 01:01 BP 122/75 08/19/16 01:01 Pulse Ox 96 08/19/16 01:01 - Orders/Labs/Meds Orders: Active Orders 24 hr Category Date Time Status RT Aerosol Therapy [RC] ASDIRECTED Care 08/19/16 02:13 Active Labs: Laboratory Tests 08/19/16 08/19/16 Range/Units 02:08 02:08 Urine Color Yellow Urine Appearance Clear Urine pH 6.0 (4.5-8.0) Ur Specific Summers 1.010 (1.008-1.030) Urine Protein Negative (NEGATIVE) mg/dL Urine Glucose (UA) Normal (NEGATIVE) mg/dL Urine Ketones Negative (NEGATIVE) mg/dL Urine Occult Blood Negative (NEGATIVE) Urine Nitrite Negative (NEGAITVE) Urine Bilirubin Negative (NEGATIVE) Urine Urobilinogen Normal (NORMAL) mg/dL Ur Leukocyte Esterase Negative (NEGATIVE) Urine RBC Not seen (0-5) Urine WBC 0-5 (0-5) Ur Epithelial Cells Not seen Amorphous Sediment Not seen Urine Bacteria Not seen Urine Mucus Not seen Urine Opiates Screen Negative (NEGATIVE) Ur Oxycodone Screen Negative (NEGATIVE) Urine Methadone Screen Negative (NEGATIVE) Ur Propoxyphene Screen Negative (NEGATIVE) Ur Barbiturates Screen Negative (NEGATIVE) Ur Tricyclics Screen Negative (NEGATIVE) Ur Phencyclidine Scrn Negative (NEGATIVE) Ur Amphetamine Screen Negative (NEGATIVE) U Methamphetamines Scrn Positive H (NEGATIVE) Urine MDMA Screen Negative (NEGATIVE) U Benzodiazepines Scrn Negative (NEGATIVE) U Cocaine Metab Screen Negative (NEGATIVE) U Marijuana (THC) Screen Positive H (NEGATIVE) Meds: Medications Discontinued Medications Generic Name Dose Route Start Last Admin Trade Name Freq PRN Reason Stop Dose Admin Albuterol 2.5 mg 08/19/16 02:13 08/19/16 02:18 Proventil Neb Soln NEB 08/19/16 02:14 2.5 mg ONETIME ONE Administration Ketorolac Tromethamine 30 mg 08/19/16 02:13 08/19/16 02:18 Toradol IM 08/19/16 02:14 30 mg ONETIME ONE Administration - Re-Assessments/Exams Free Text/Narrative Re-Assessment/Exam: 08/19/16 02:49 given Albuterol Neb now, lungs more clear post nebulizer given Toradol 60mg im Departure - Departure Time of Disposition: 02:50 Disposition: Home, Self-Care 01 Condition: Good Clinical Impression: Bronchitis, Methamphetamine abuse - Discharge Information Referrals: Awais Powers MD [Primary Care Provider] - Forms: ED Department Discharge Care Plan Goals: acute bronchitis meth use -start Zithromax 500mg po today then one tablet po daily -Robitussin AC 10ml every 4 to6 hr prn painful cough -Motrin 600mg one eveyr 6 hr prn pain advise to quit or cut down on smoking advise to continue not to use meth follow up with Dr. Powers next week return to ER or Urgent Care if not improved or symptoms worsen - Problem List & Annotations (1) Bronchitis SNOMED Code(s): 15490268 Code(s): J40 - BRONCHITIS, NOT SPECIFIED ACUTE OR CHRONIC Status: Acute Priority: Medium Current Visit: Yes (2) Methamphetamine abuse SNOMED Code(s): 679468276 Code(s): F15.10 - OTHER STIMULANT ABUSE, UNCOMPLICATED Status: Acute Priority: Medium Current Visit: Yes - Problem List Review Problem List Initiated/Reviewed/Updated: Yes - My Orders Last 24 Hours: My Active Orders 08/19/16 02:13 RT Aerosol Therapy [RC] ASDIRECTED - Assessment/Plan Last 24 Hours: My Active Orders 08/19/16 02:13 RT Aerosol Therapy [RC] ASDIRECTED Plan: acute bronchitis meth use -start Zithromax 500mg po today then one tablet po daily -Robitussin AC 10ml every 4 to6 hr prn painful cough -Motrin 600mg one eveyr 6 hr prn pain advise to quit or cut down on smoking advise to continue not to use meth follow up with Dr. Powers next week return to ER or Urgent Care if not improved or symptoms worsen
== END 2016-08-19 03:01 | disposition home or self-care (01) ==
LOC: JP.ED 23:40
DX: J40 Bronchitis, not specified as acute or chronic (principal); F15.10 Other stimulant abuse, uncomplicated; I10 Essential (primary) hypertension; K21.9 Gastro-esophageal reflux disease without esophagitis; F32.9 Major depressive disorder, single episode, unspecified; F20.9 Schizophrenia, unspecified; F41.9 Anxiety disorder, unspecified; G43.909 Migraine, unspecified, not intractable, without status migrainosus; F17.210 Nicotine dependence, cigarettes, uncomplicated; Z79.899 Other long term (current) drug therapy
CPT/HCPCS: 80305; 81001; 96372; 99285; J1885; 99283

== ENCOUNTER 2016-08-23 02:00 | Emergency (ER) | payer MEDICAID ==
[2016-08-23] MEDS ORDERED: Ketorolac 30 MG/ML SDV IM ONE (02:34)
--- NOTE | 2016-08-23 03:48 | EDM.PDOC ---
ED HPI GENERAL MEDICAL PROBLEM - General Chief Complaint: Chest Pain Stated Complaint: HEART Time Seen by Provider: 08/23/16 02:15 Source of Information: Reports: Patient History Limitations: Reports: No Limitations - History of Present Illness INITIAL COMMENTS - FREE TEXT/NARRATIVE: History of present illness: [46-year-old male presenting to the ER complaining of pleuritic chest pain for about a week since he did do a history of meth. He describes a pleuritic type chest pain stabbing pain that is in his chest that is exacerbated by coughing and deep breathing and lying down and feels better when he sits up. Said no fevers or chills or cold symptoms no shortness of breath with this and he keeps describing this pain in his chest as his heart.] Review of systems: As per history of present illness and below otherwise all systems reviewed and negative. Past medical history: As per history of present illness and as reviewed below otherwise noncontributory. Surgical history: As per history of present illness and as reviewed below otherwise noncontributory. Social history: No reported history of drug or alcohol abuse. Family history: As per history of present illness and as reviewed below otherwise noncontributory. Physical exam: HEENT: Atraumatic, normocephalic, pupils reactive, negative for conjunctival pallor or scleral icterus, mucous membranes moist, throat clear, neck supple, nontender, trachea midline. Lungs: Clear to auscultation, breath sounds equal bilaterally, chest is tender to palpation especially the upper left chest Heart: S1S2, regular, Extremities: Atraumatic, negative for cords or calf pain. Neurovascular unremarkable. Neuro: Awake, alert, oriented. Exam nonfocal. Diagnostics: [EKG is normal sinus rhythm and unremarkable] Therapeutics: [He was given 30 mg of Toradol IM with good result] Impression: [Pleuritic chest pain] Plan: [I'm recommending [id number] NSAIDs for his pain and that he stop doing meth] Definitive disposition and diagnosis as appropriate pending reevaluation and review of above. Chest Pain Score (Numeric/FACES): 8 - Related Data Allergies Allergy/AdvReac Type Severity Reaction Status Date / Time No Known Allergies Allergy Verified 08/23/16 02:10 Home Meds: Home Meds Furosemide [Furosemide] 20 mg PO QAM 03/28/13 [History] Omeprazole [Omeprazole] 40 mg PO QAM 03/28/13 [History] Potassium Chloride [Klor-Con M20] 20 meq PO QAM 03/28/13 [History] Topiramate [Topamax] 50 mg PO BID 03/28/13 [History] Benztropine [Cogentin] 1 mg PO BID 09/23/13 [History] FLUoxetine HCl [Fluoxetine HCl] 40 mg PO DAILY 12/04/13 [History] Montelukast Sodium [Singulair] 10 mg PO DAILY 12/04/13 [History] SUMAtriptan Succinate [Sumatriptan Succinate] 50 mg PO ASDIRECTED PRN 12/04/13 [ History] traZODone HCl [Trazodone HCl] 150 mg PO QPM 12/04/13 [History] ARIPiprazole [Abilify] 20 mg PO BEDTIME 01/03/16 [History] risperiDONE [risperiDONE] 2 mg PO BEDTIME 01/03/16 [History] Past Medical History HEENT History: Reports: Allergic Rhinitis Cardiovascular History: Reports: Hypertension Respiratory History: Reports: Sleep Apnea Gastrointestinal History: Reports: GERD Musculoskeletal History: Reports: Fracture, Other (See Below), Other (See Below) Other Musculoskeletal History: AC separation from previous injury in football 1988. Left shoulder fx with rotator cuff chip from a fall in Mid Dec 2015. Neurological History: Reports: Concussion, Migraines Psychiatric History: Reports: Anxiety, Depression, Schizophrenia - Infectious Disease History Infectious Disease History: Reports: Chicken Pox - Past Surgical History HEENT Surgical History: Reports: Oral Surgery GI Surgical History: Reports: Colonoscopy, EGD Social & Family History - Family History Family Medical History: Noncontributory - Tobacco Use Smoking Status *Q: Current Every Day Smoker Years of Tobacco use: 28 Packs/Tins Daily: 0.5 Used Tobacco, but Quit: No Month Tobacco Last Used: July Second Hand Smoke Exposure: No - Caffeine Use Caffeine Use: Reports: Coffee, Energy Drinks, Soda, Tea - Alcohol Use Days Per Week of Alcohol Use: 1 Number of Drinks Per Day: 1 Total Drinks Per Week: 1 - Recreational Drug Use Recreational Drug Use: Yes Drug Use in Last 12 Months: Yes Recreational Drug Type: Reports: Methamphetamine Other Recreational Drug Type: Used marijuana 1 month ago Recreational Drug Use Frequency: Socially - Living Situation & Occupation Living situation: Reports: Single Occupation: Disabled ED ROS GENERAL - Review of Systems Review Of Systems: ROS reveals no pertinent complaints other than HPI. ED EXAM, GENERAL - Physical Exam Exam: See Below Course - Vital Signs Last Recorded V/S: Last Vital Signs Temp 35.5 C 08/23/16 02:07 Pulse 77 08/23/16 02:07 Resp 18 08/23/16 02:31 BP 123/78 08/23/16 02:31 Pulse Ox 98 08/23/16 02:31 - Orders/Labs/Meds Orders: Active Orders 24 hr Category Date Time Status EKG Documentation Completion [RC] ASDIRECTED Care 08/23/16 02:37 Active EKG 12 Lead [EK] Routine Ther 08/23/16 02:37 Ordered Meds: Medications Discontinued Medications Generic Name Dose Route Start Last Admin Trade Name Stefany PRN Reason Stop Dose Admin Ketorolac Tromethamine 30 mg 08/23/16 02:34 08/23/16 02:39 Toradol IM 08/23/16 02:35 30 mg ONETIME ONE Administration Departure - Departure Time of Disposition: 03:46 Disposition: Home, Self-Care 01 Condition: Good Clinical Impression: Pleuritic chest pain Forms: ED Department Discharge Additional Instructions: As we discussed you can use [id number] Advil or Naprosyn and as long as you don't use meth again this pain should subside and he shouldn't have any more trouble with it. This is my recommendation to you - My Orders Last 24 Hours: My Active Orders 08/23/16 02:37 EKG Documentation Completion [RC] ASDIRECTED EKG 12 Lead [EK] Routine - Assessment/Plan Last 24 Hours: My Active Orders 08/23/16 02:37 EKG Documentation Completion [RC] ASDIRECTED EKG 12 Lead [EK] Routine
[2016-08-23 03:59] VITALS: BP 116/71
== END 2016-08-23 04:00 | disposition home or self-care (01) ==
LOC: JP.ED 02:00
DX: R07.81 Pleurodynia (principal); I10 Essential (primary) hypertension; K21.9 Gastro-esophageal reflux disease without esophagitis; F41.9 Anxiety disorder, unspecified; F32.9 Major depressive disorder, single episode, unspecified; F17.210 Nicotine dependence, cigarettes, uncomplicated; Z79.899 Other long term (current) drug therapy
CPT/HCPCS: 93005; 96372; 99285; J1885; 93010; 99284

== ENCOUNTER 2016-08-28 01:03 | Emergency (ER) | payer MEDICAID ==
[2016-08-28 02:34] VITALS: BP 104/68
[2016-08-28] MEDS ORDERED: Ondansetron 4 MG Tab.DIS PO ONE (02:58)
--- NOTE | 2016-08-28 03:02 | EDM.PDOC ---
ED HPI GENERAL MEDICAL PROBLEM - General Chief Complaint: Gastrointestinal Problem Stated Complaint: SICK STOMACH Time Seen by Provider: 08/28/16 02:56 Source of Information: Reports: Patient, RN Notes Reviewed History Limitations: Reports: No Limitations - History of Present Illness INITIAL COMMENTS - FREE TEXT/NARRATIVE: 46-year-old gentleman presents emergency department day complaint nausea, he states he may have eaten a turkey sandwich that it was not good for him he's had difficulty sleeping because of the nausea he is hoping to get some medication for that. No other complaints at this time Abdominal Pain Score (Numeric/FACES): 8 - Related Data Allergies Allergy/AdvReac Type Severity Reaction Status Date / Time No Known Allergies Allergy Verified 08/28/16 02:44 Home Meds: Home Meds Furosemide [Furosemide] 20 mg PO QAM 03/28/13 [History] Omeprazole [Omeprazole] 40 mg PO QAM 03/28/13 [History] Potassium Chloride [Klor-Con M20] 20 meq PO QAM 03/28/13 [History] Topiramate [Topamax] 50 mg PO BID 03/28/13 [History] Benztropine [Cogentin] 1 mg PO BID 09/23/13 [History] FLUoxetine HCl [Fluoxetine HCl] 40 mg PO DAILY 12/04/13 [History] Montelukast Sodium [Singulair] 10 mg PO DAILY 12/04/13 [History] SUMAtriptan Succinate [Sumatriptan Succinate] 50 mg PO ASDIRECTED PRN 12/04/13 [ History] traZODone HCl [Trazodone HCl] 150 mg PO QPM 12/04/13 [History] ARIPiprazole [Abilify] 20 mg PO BEDTIME 01/03/16 [History] risperiDONE [risperiDONE] 2 mg PO BEDTIME 01/03/16 [History] Past Medical History HEENT History: Reports: Allergic Rhinitis Other HEENT History: MIGRAINES Cardiovascular History: Reports: Hypertension Respiratory History: Reports: Sleep Apnea Gastrointestinal History: Reports: GERD Musculoskeletal History: Reports: Fracture, Other (See Below), Other (See Below) Other Musculoskeletal History: AC separation from previous injury in football 1988. Left shoulder fx with rotator cuff chip from a fall in Mid Dec 2015. Neurological History: Reports: Concussion, Migraines Psychiatric History: Reports: Anxiety, Depression, Schizophrenia - Infectious Disease History Infectious Disease History: Reports: Chicken Pox - Past Surgical History HEENT Surgical History: Reports: Oral Surgery GI Surgical History: Reports: Colonoscopy, EGD Social & Family History - Family History Family Medical History: Noncontributory - Tobacco Use Smoking Status *Q: Current Every Day Smoker Years of Tobacco use: 28 Packs/Tins Daily: 0.5 Used Tobacco, but Quit: No Month Tobacco Last Used: July Second Hand Smoke Exposure: No - Caffeine Use Caffeine Use: Reports: Coffee, Energy Drinks, Soda, Tea - Alcohol Use Days Per Week of Alcohol Use: 1 Number of Drinks Per Day: 1 Total Drinks Per Week: 1 - Recreational Drug Use Recreational Drug Use: Yes Drug Use in Last 12 Months: Yes Recreational Drug Type: Reports: Methamphetamine Other Recreational Drug Type: Used marijuana 1 month ago Recreational Drug Use Frequency: Socially - Living Situation & Occupation Living situation: Reports: Single Occupation: Disabled ED ROS GENERAL - Review of Systems Review Of Systems: See Below Constitutional: Reports: No Symptoms Respiratory: Reports: No Symptoms Cardiovascular: Reports: No Symptoms GI/Abdominal: Reports: Nausea. Denies: Abdominal Pain, Vomiting ED EXAM, GI/ABD - Physical Exam Exam: See Below Exam Limited By: No Limitations General Appearance: Alert, WD/WN, No Apparent Distress Respiratory/Chest: No Respiratory Distress GI/Abdominal: Soft, Non-Tender Course - Vital Signs Last Recorded V/S: Last Vital Signs Temp 207.0 F H 08/28/16 02:35 Pulse 89 08/28/16 02:35 Resp 15 08/28/16 02:35 BP 104/68 08/28/16 02:35 Pulse Ox 97 08/28/16 02:35 - Orders/Labs/Meds Meds: Medications Discontinued Medications Generic Name Dose Route Start Last Admin Trade Name Freq PRN Reason Stop Dose Admin Ondansetron HCl 4 mg 08/28/16 02:58 Zofran Odt PO 08/28/16 02:59 ONETIME ONE Departure - Departure Time of Disposition: 03:01 Disposition: Home, Self-Care 01 Condition: Good Clinical Impression: Nausea - Discharge Information Forms: ED Department Discharge Additional Instructions: Use Zofran as needed to control nausea symptoms, Please followup with your primary care provider in 3-5 days if not better, please call return to the emergency department with worsening of symptoms. - Assessment/Plan Plan: Assessment Acuity = acute Site and laterality = nausea Etiology = possibly related to food borne illness Manifestations = none Location of injury = Home Lab values = none Plan I did offer him further evaluation including blood work and image studies he declined prefer to try that medication states he'll follow up with his primary care if not better Patient was in agreement with the plan all questions were answered, they were instructed to return to the emergency department or call for worsening symptoms. This note was dictated using [employer] voice recognition software please call with any questions.
== END 2016-08-28 03:18 | disposition home or self-care (01) ==
LOC: JP.ED 01:03
DX: R11.0 Nausea (principal); F17.210 Nicotine dependence, cigarettes, uncomplicated; G43.909 Migraine, unspecified, not intractable, without status migrainosus; I10 Essential (primary) hypertension; K21.9 Gastro-esophageal reflux disease without esophagitis; F41.9 Anxiety disorder, unspecified; F32.9 Major depressive disorder, single episode, unspecified; Z98.890 Other specified postprocedural states; Z79.899 Other long term (current) drug therapy
CPT/HCPCS: 99283; A9270

== ENCOUNTER 2016-09-07 02:38 | Emergency (ER) | payer MEDICAID ==
[2016-09-07 02:53] VITALS: BP 128/80
[2016-09-07] MEDS ORDERED: Ketorolac 60 MG/2 ML SDV IM ONE (03:07)
--- NOTE | 2016-09-07 03:07 | EDM.PDOC ---
ED HPI GENERAL MEDICAL PROBLEM - General Chief Complaint: Headache Stated Complaint: MIGRAINE Time Seen by Provider: 09/07/16 03:03 Source of Information: Reports: Patient History Limitations: Reports: No Limitations - History of Present Illness INITIAL COMMENTS - FREE TEXT/NARRATIVE: History of present illness: [46-year-old male presenting with a migraine headache. He has a history of migraines and has presented many times to ER for this problem. A shot of Toradol usually takes care of his headache. This is his typical headache and he otherwise feels well.] Review of systems: As per history of present illness and below otherwise all systems reviewed and negative. Past medical history: As per history of present illness and as reviewed below otherwise noncontributory. Surgical history: As per history of present illness and as reviewed below otherwise noncontributory. Social history: No reported history of drug or alcohol abuse. Family history: As per history of present illness and as reviewed below otherwise noncontributory. Physical exam: HEENT: Atraumatic, normocephalic, pupils reactive, negative for conjunctival pallor or scleral icterus, mucous membranes moist, throat clear, neck supple, nontender, trachea midline. Lungs: Clear to auscultation, breath sounds equal bilaterally, chest nontender. Heart: S1S2, regular, negative for clicks, rubs, or JVD. Extremities: Atraumatic, negative for cords or calf pain. Neurovascular unremarkable. Neuro: Awake, alert, oriented. Cranial nerves II through XII unremarkable. Cerebellum unremarkable. Motor and sensory unremarkable throughout. Exam nonfocal. Diagnostics: [] Therapeutics: [] Impression: [Migraine headache] Plan: [Patient is given Toradol 30 mg IM and discharged. He will follow-up with us as needed.] Definitive disposition and diagnosis as appropriate pending reevaluation and review of above. Headache Pain Score (Numeric/FACES): 9 - Related Data Allergies Allergy/AdvReac Type Severity Reaction Status Date / Time No Known Allergies Allergy Verified 09/07/16 02:49 Home Meds: Home Meds Furosemide [Furosemide] 20 mg PO QAM 03/28/13 [History] Omeprazole [Omeprazole] 40 mg PO QAM 03/28/13 [History] Potassium Chloride [Klor-Con M20] 20 meq PO QAM 03/28/13 [History] Topiramate [Topamax] 50 mg PO BID 03/28/13 [History] Benztropine [Cogentin] 1 mg PO BID 09/23/13 [History] FLUoxetine HCl [Fluoxetine HCl] 40 mg PO DAILY 12/04/13 [History] Montelukast Sodium [Singulair] 10 mg PO DAILY 12/04/13 [History] SUMAtriptan Succinate [Sumatriptan Succinate] 50 mg PO ASDIRECTED PRN 12/04/13 [ History] traZODone HCl [Trazodone HCl] 150 mg PO QPM 12/04/13 [History] ARIPiprazole [Abilify] 20 mg PO BEDTIME 01/03/16 [History] risperiDONE [risperiDONE] 4 mg PO BEDTIME 01/03/16 [History] Past Medical History HEENT History: Reports: Allergic Rhinitis Other HEENT History: MIGRAINES Cardiovascular History: Reports: Hypertension Respiratory History: Reports: Sleep Apnea Gastrointestinal History: Reports: GERD Musculoskeletal History: Reports: Fracture, Other (See Below), Other (See Below) Other Musculoskeletal History: AC separation from previous injury in football 1988. Left shoulder fx with rotator cuff chip from a fall in Mid Dec 2015. Neurological History: Reports: Concussion, Migraines Psychiatric History: Reports: Anxiety, Depression, Schizophrenia - Infectious Disease History Infectious Disease History: Reports: Measles - Past Surgical History HEENT Surgical History: Reports: Oral Surgery GI Surgical History: Reports: Colonoscopy, EGD Social & Family History - Family History Family Medical History: Noncontributory - Tobacco Use Smoking Status *Q: Current Every Day Smoker Years of Tobacco use: 25 Packs/Tins Daily: 0.3 Used Tobacco, but Quit: No Month Tobacco Last Used: July Second Hand Smoke Exposure: No - Caffeine Use Caffeine Use: Reports: Coffee, Energy Drinks, Soda - Alcohol Use Days Per Week of Alcohol Use: 1 Number of Drinks Per Day: 1 Total Drinks Per Week: 1 - Recreational Drug Use Recreational Drug Use: Yes Drug Use in Last 12 Months: Yes Recreational Drug Type: Reports: Methamphetamine Other Recreational Drug Type: Used marijuana 1 month ago Recreational Drug Use Frequency: Socially - Living Situation & Occupation Living situation: Reports: Single Occupation: Disabled ED ROS GENERAL - Review of Systems Review Of Systems: ROS reveals no pertinent complaints other than HPI. - Physical Exam Exam: See Below Course - Vital Signs Last Recorded V/S: Last Vital Signs Temp 35.9 C 09/07/16 02:51 Pulse 100 09/07/16 02:51 Resp 16 09/07/16 02:51 BP 128/80 09/07/16 02:51 Pulse Ox 100 09/07/16 02:51 Departure - Departure Time of Disposition: 03:05 Disposition: Home, Self-Care 01 Condition: Good Clinical Impression: Migraine Qualifiers: Migraine type: unspecified Status migrainosus presence: without status migrainosus Intractability: not intractable Qualified Code(s): G43.909 - Migraine, unspecified, not intractable, without status migrainosus - Discharge Information Forms: ED Department Discharge Additional Instructions: Remember our discussion about smoking. Try to cut back one cigarette a week and might be easier for you to stop.
== END 2016-09-07 03:44 | disposition home or self-care (01) ==
LOC: JP.ED 02:38
DX: G43.909 Migraine, unspecified, not intractable, without status migrainosus (principal); F17.210 Nicotine dependence, cigarettes, uncomplicated; I10 Essential (primary) hypertension; K21.9 Gastro-esophageal reflux disease without esophagitis; Z98.890 Other specified postprocedural states; Z79.899 Other long term (current) drug therapy
CPT/HCPCS: 96372; 99283; J1885

== ENCOUNTER 2016-09-29 04:08 | Emergency (ER) | payer MEDICAID ==
[2016-09-29 04:41] VITALS: BP 116/63
[2016-09-29] MEDS ORDERED: Ketorolac 60 MG/2 ML SDV IM ONE (04:57)
--- NOTE | 2016-09-29 04:59 | EDM.PDOC ---
[id number]: NAUSEOUS Time Seen by Provider: 09/29/16 04:57 Source of Information: Reports: Patient History Limitations: Reports: No Limitations - History of Present Illness INITIAL COMMENTS - FREE TEXT/NARRATIVE: pt arrived astating that he has abdomanal pain which he is rating at a 10. He had a bm 2 days ago which is unusal . Onset: Today Duration: Hour(s): Location: Reports: Abdomen Quality: Reports: Sharp, Stabbing Associated Symptoms: Reports: Nausea/Vomiting abdomen Pain Score (Numeric/FACES): 9 - Related Data Allergies Allergy/AdvReac Type Severity Reaction Status Date / Time No Known Allergies Allergy Verified 09/29/16 04:25 Home Meds: Home Meds Furosemide [Furosemide] 20 mg PO QAM 03/28/13 [History] Omeprazole [Omeprazole] 40 mg PO QAM 03/28/13 [History] Potassium Chloride [Klor-Con M20] 20 meq PO QAM 03/28/13 [History] Topiramate [Topamax] 50 mg PO BID 03/28/13 [History] Benztropine [Cogentin] 1 mg PO BID 09/23/13 [History] FLUoxetine HCl [Fluoxetine HCl] 40 mg PO DAILY 12/04/13 [History] Montelukast Sodium [Singulair] 10 mg PO DAILY 12/04/13 [History] SUMAtriptan Succinate [Sumatriptan Succinate] 50 mg PO ASDIRECTED PRN 12/04/13 [ History] traZODone HCl [Trazodone HCl] 150 mg PO QPM 12/04/13 [History] ARIPiprazole [Abilify] 20 mg PO BEDTIME 01/03/16 [History] risperiDONE [risperiDONE] 4 mg PO BEDTIME 01/03/16 [History] Past Medical History HEENT History: Reports: Allergic Rhinitis Other HEENT History: MIGRAINES Cardiovascular History: Reports: Hypertension Respiratory History: Reports: Sleep Apnea Gastrointestinal History: Reports: GERD Musculoskeletal History: Reports: Fracture, Other (See Below), Other (See Below) Other Musculoskeletal History: AC separation from previous injury in football 1988. Left shoulder fx with rotator cuff chip from a fall in Mid Dec 2015. Neurological History: Reports: Concussion, Migraines Psychiatric History: Reports: Anxiety, Depression, Schizophrenia - Infectious Disease History Infectious Disease History: Reports: Measles - Past Surgical History Head Surgeries/Procedures: Reports: None HEENT Surgical History: Reports: Oral Surgery GI Surgical History: Reports: Colonoscopy, EGD Social & Family History - Family History Family Medical History: Noncontributory - Tobacco Use Smoking Status *Q: Current Every Day Smoker Years of Tobacco use: 30 Packs/Tins Daily: 0.5 Used Tobacco, but Quit: No Month Tobacco Last Used: July Second Hand Smoke Exposure: No - Caffeine Use Caffeine Use: Reports: Coffee, Energy Drinks, Soda, Tea - Alcohol Use Days Per Week of Alcohol Use: 1 Number of Drinks Per Day: 1 Total Drinks Per Week: 1 - Recreational Drug Use Recreational Drug Use: Yes Drug Use in Last 12 Months: Yes Recreational Drug Type: Reports: Marijuana/Hashish Other Recreational Drug Type: Used marijuana 1 month ago Recreational Drug Use Frequency: Weekly - Living Situation & Occupation Living situation: Reports: Single Occupation: Disabled ED ROS GENERAL - Review of Systems Review Of Systems: See Below Constitutional: Reports: No Symptoms HEENT: Reports: No Symptoms Respiratory: Reports: No Symptoms Cardiovascular: Reports: No Symptoms Endocrine: Reports: No Symptoms GI/Abdominal: Reports: Abdominal Pain, Constipation : Reports: No Symptoms ED EXAM, GI/ABD - Physical Exam Exam: See Below Text/Narrative:: pt arrived with pain in the lower abdoman. He has not had a bm for 2 days. Hestates he woke up with he pain. Exam Limited By: No Limitations General Appearance: Alert, Anxious Eyes: Bilateral: Normal Appearance, EOMI Ears: Normal TMs Nose: Normal Inspection Throat/Mouth: Normal Inspection Head: Atraumatic Neck: Normal Inspection Respiratory/Chest: No Respiratory Distress Cardiovascular: Regular Rate, Rhythm GI/Abdominal Exam: Soft, Tender, Other ( slight tenderness present) (Male) Exam: Deferred Rectal (Males) Exam: Deferred Back Exam: Normal Inspection Extremities: Normal Inspection Course - Vital Signs Last Recorded V/S: Last Vital Signs Temp 35.7 C 09/29/16 04:37 Pulse 85 09/29/16 04:37 Resp 16 09/29/16 04:37 BP 116/63 09/29/16 04:37 Pulse Ox 98 09/29/16 04:37 - Orders/Labs/Meds Labs: Laboratory Tests 09/29/16 09/29/16 09/29/16 Range/Units 05:04 05:04 05:21 WBC 7.5 (4.5-11.0) K/uL RBC 4.41 (4.30-5.90) M/uL Hgb 13.2 (12.0-15.0) g/dL Hct 38.4 L (40.0-54.0) % MCV 87 (80-98) fL MCH 30 (27-31) pg MCHC 34 (32-36) % Plt Count 311 (150-400) K/uL Neut % (Auto) 54 (36-66) % Lymph % (Auto) 33 (24-44) % Wilkes % (Auto) 5 (2-6) % Eos % (Auto) 6 H (2-4) % Baso % (Auto) 1 (0-1) % Sodium 140 (140-148) mmol/L Potassium 3.9 (3.6-5.2) mmol/L Chloride 104 (100-108) mmol/L Carbon Dioxide 26 (21-32) mmol/L Anion Gap 10.3 (5.0-14.0) mmol/L BUN 27 H D (7-18) mg/dL Creatinine 1.2 (0.8-1.3) mg/dL Est Cr Clr Drug Dosing 81.05 mL/min Estimated GFR (MDRD) > 60 (>60) Glucose 95 (74-106) mg/dL Calcium 8.6 (8.5-10.1) mg/dL Total Bilirubin 0.2 D (0.2-1.0) mg/dL AST 27 (15-37) U/L ALT 31 (12-78) U/L Alkaline Phosphatase 61 (46-116) U/L Total Protein 7.3 (6.4-8.2) g/dL Albumin 2.8 L (3.4-5.0) g/dL Globulin 4.5 H (2.3-3.5) g/dL Albumin/Globulin Ratio 0.6 L (1.2-2.2) Urine Color Urine Appearance Urine pH (4.5-8.0) Ur Specific [place] (1.008-1.030) Urine Protein (NEGATIVE) mg/dL Urine Glucose (UA) (NEGATIVE) mg/dL Urine Ketones (NEGATIVE) mg/dL Urine Occult Blood (NEGATIVE) Urine Nitrite (NEGAITVE) Urine Bilirubin (NEGATIVE) Urine Urobilinogen (NORMAL) mg/dL Ur Leukocyte Esterase (NEGATIVE) Urine RBC (0-5) Urine WBC (0-5) Ur Epithelial Cells Amorphous Sediment Urine Bacteria Urine Mucus Urine Opiates Screen Negative (NEGATIVE) Ur Oxycodone Screen Negative (NEGATIVE) Urine Methadone Screen Negative (NEGATIVE) Ur Propoxyphene Screen Negative (NEGATIVE) Ur Barbiturates Screen Negative (NEGATIVE) Ur Tricyclics Screen Negative (NEGATIVE) Ur Phencyclidine Scrn Negative (NEGATIVE) Ur Amphetamine Screen Negative (NEGATIVE) U Methamphetamines Scrn Negative (NEGATIVE) Urine MDMA Screen Negative (NEGATIVE) U Benzodiazepines Scrn Negative (NEGATIVE) U Cocaine Metab Screen Negative (NEGATIVE) U Marijuana (THC) Screen Positive H (NEGATIVE) 09/29/16 Range/Units 05:21 WBC (4.5-11.0) K/uL RBC (4.30-5.90) M/uL Hgb (12.0-15.0) g/dL Hct (40.0-54.0) % MCV (80-98) fL MCH (27-31) pg MCHC (32-36) % Plt Count (150-400) K/uL Neut % (Auto) (36-66) % Lymph % (Auto) (24-44) % Wilkes % (Auto) (2-6) % Eos % (Auto) (2-4) % Baso % (Auto) (0-1) % Sodium (140-148) mmol/L Potassium (3.6-5.2) mmol/L Chloride (100-108) mmol/L Carbon Dioxide (21-32) mmol/L Anion Gap (5.0-14.0) mmol/L BUN (7-18) mg/dL Creatinine (0.8-1.3) mg/dL Est Cr Clr Drug Dosing mL/min Estimated GFR (MDRD) (>60) Glucose (74-106) mg/dL Calcium (8.5-10.1) mg/dL Total Bilirubin (0.2-1.0) mg/dL AST (15-37) U/L ALT (12-78) U/L Alkaline Phosphatase (46-116) U/L Total Protein (6.4-8.2) g/dL Albumin (3.4-5.0) g/dL Globulin (2.3-3.5) g/dL Albumin/Globulin Ratio (1.2-2.2) Urine Color Yellow Urine Appearance Clear Urine pH 5.0 (4.5-8.0) Ur Specific [place] 1.015 (1.008-1.030) Urine Protein Negative (NEGATIVE) mg/dL Urine Glucose (UA) Normal (NEGATIVE) mg/dL Urine Ketones Negative (NEGATIVE) mg/dL Urine Occult Blood Negative (NEGATIVE) Urine Nitrite Negative (NEGAITVE) Urine Bilirubin Negative (NEGATIVE) Urine Urobilinogen Normal (NORMAL) mg/dL Ur Leukocyte Esterase Negative (NEGATIVE) Urine RBC Not seen (0-5) Urine WBC Not seen (0-5) Ur Epithelial Cells Not seen Amorphous Sediment Rare Urine Bacteria Not seen Urine Mucus Not seen Urine Opiates Screen (NEGATIVE) Ur Oxycodone Screen (NEGATIVE) Urine Methadone Screen (NEGATIVE) Ur Propoxyphene Screen (NEGATIVE) Ur Barbiturates Screen (NEGATIVE) Ur Tricyclics Screen (NEGATIVE) Ur Phencyclidine Scrn (NEGATIVE) Ur Amphetamine Screen (NEGATIVE) U Methamphetamines Scrn (NEGATIVE) Urine MDMA Screen (NEGATIVE) U Benzodiazepines Scrn (NEGATIVE) U Cocaine Metab Screen (NEGATIVE) U Marijuana (THC) Screen (NEGATIVE) Meds: Medications Discontinued Medications Generic Name Dose Route Start Last Admin Trade Name Freq PRN Reason Stop Dose Admin Ketorolac Tromethamine 60 mg 09/29/16 04:57 09/29/16 05:03 Toradol IM 09/29/16 04:58 60 mg ONETIME ONE Administration Magnesium Hydroxide 30 ml 09/29/16 05:07 09/29/16 05:18 Milk Of Magnesia PO 09/29/16 05:08 30 ml ONETIME ONE Administration - Re-Assessments/Exams Free Text/Narrative Re-Assessment/Exam: 09/29/16 05:09 wbc is normal. 09/29/16 06:12 lab work was normal, he stated that he felt better 09/29/16 06:12 09/29/16 18:43 Departure - Departure Time of Disposition: 06:13 Disposition: Home, Self-Care 01 Condition: Fair Clinical Impression: Abdominal pain, Constipation - Discharge Information Instructions: Constipation, Adult, Abdominal Pain, Adult, [id number] Referrals: Awais Powers MD [Primary Care Provider] - Forms: ED Department Discharge Care Plan Goals: high fiber foods, push fluids
[2016-09-29] MEDS ORDERED: Magnesium Hydroxide 400 MG/5 ML Susp 30 ML Cup PO ONE (05:07)
== END 2016-09-29 06:42 | disposition home or self-care (01) ==
LOC: JP.ED 04:08
DX: K59.00 Constipation, unspecified (principal); G43.909 Migraine, unspecified, not intractable, without status migrainosus; I10 Essential (primary) hypertension; K21.9 Gastro-esophageal reflux disease without esophagitis; F17.210 Nicotine dependence, cigarettes, uncomplicated; Z98.890 Other specified postprocedural states; Z79.899 Other long term (current) drug therapy
CPT/HCPCS: 36415; 80053; 80305; 81001; 85025; 96372; 99284; A9270; J1885

== ENCOUNTER 2016-10-21 23:33 | Emergency (ER) | payer MEDICAID ==
[2016-10-21 23:45] VITALS: BP 125/80
[2016-10-22] MEDS ORDERED: Ketorolac 60 MG/2 ML SDV IM ONE (00:28)
--- NOTE | 2016-10-22 00:29 | EDM.PDOC ---
ED HPI GENERAL MEDICAL PROBLEM - General Chief Complaint: Gastrointestinal Problem Stated Complaint: STOMACH PAIN Time Seen by Provider: 10/21/16 23:56 Source of Information: Reports: Patient History Limitations: Reports: No Limitations - History of Present Illness INITIAL COMMENTS - FREE TEXT/NARRATIVE: History of present illness: [46-year-old male is presenting here complaining of abdominal pain. He stated that he ate more food than unusual over the Day weekend and has had 2 bowel movements a day and that this causing him some pain and discomfort. Exam no constipation or diarrhea fevers or chills with this. Clarence is well known to us presents frequently with pain and anxiety and responds well to Toradol and Ativan for his complaints and then seems to do fine.] Review of systems: As per history of present illness and below otherwise all systems reviewed and negative. Past medical history: As per history of present illness and as reviewed below otherwise noncontributory. Surgical history: As per history of present illness and as reviewed below otherwise noncontributory. Social history: No reported history of drug or alcohol abuse. Family history: As per history of present illness and as reviewed below otherwise noncontributory. Physical exam: HEENT: Atraumatic, normocephalic, pupils reactive, negative for conjunctival pallor or scleral icterus, mucous membranes moist, throat clear, neck supple, nontender, trachea midline. Lungs: Clear to auscultation, breath sounds equal bilaterally Heart: S1S2, regular, negative for clicks, rubs, or JVD. Abdomen: He has generalized tenderness to palpation to his abdomen but is not distended bowel sounds are active no peritoneal signs. Pelvis: Stable nontender. Genitourinary: Deferred. Rectal: Deferred. Extremities: Atraumatic, negative for cords or calf pain. Neurovascular unremarkable. Neuro: Awake, alert, oriented. Exam nonfocal. Diagnostics: [] Therapeutics: [Toradol 60 mg IM was provided] Impression: [Nonspecific abdominal pain] Plan: []Follow-up here as needed Definitive disposition and diagnosis as appropriate pending reevaluation and review of above. abdominal pain Pain Score (Numeric/FACES): 10 - Related Data Allergies Allergy/AdvReac Type Severity Reaction Status Date / Time No Known Allergies Allergy Verified 10/21/16 23:49 Home Meds: Home Meds Furosemide [Furosemide] 20 mg PO QAM 03/28/13 [History] Omeprazole [Omeprazole] 40 mg PO QAM 03/28/13 [History] Potassium Chloride [Klor-Con M20] 20 meq PO QAM 03/28/13 [History] Topiramate [Topamax] 50 mg PO BID 03/28/13 [History] Benztropine [Cogentin] 1 mg PO BID 09/23/13 [History] FLUoxetine HCl [Fluoxetine HCl] 40 mg PO DAILY 12/04/13 [History] Montelukast Sodium [Singulair] 10 mg PO DAILY 12/04/13 [History] SUMAtriptan Succinate [Sumatriptan Succinate] 50 mg PO ASDIRECTED PRN 12/04/13 [ History] traZODone HCl [Trazodone HCl] 150 mg PO QPM 12/04/13 [History] ARIPiprazole [Abilify] 20 mg PO BEDTIME 01/03/16 [History] risperiDONE [risperiDONE] 4 mg PO BEDTIME 01/03/16 [History] Past Medical History HEENT History: Reports: Allergic Rhinitis Other HEENT History: MIGRAINES Cardiovascular History: Reports: Hypertension Respiratory History: Reports: Sleep Apnea Gastrointestinal History: Reports: GERD Genitourinary History: Reports: None Musculoskeletal History: Reports: Fracture, Other (See Below), Other (See Below) Other Musculoskeletal History: AC separation from previous injury in football 1988. Left shoulder fx with rotator cuff chip from a fall in Mid Dec 2015. Neurological History: Reports: Concussion, Migraines Psychiatric History: Reports: Anxiety, Depression, Schizophrenia Endocrine/Metabolic History: Reports: None Hematologic History: Reports: None Immunologic History: Reports: None Oncologic (Cancer) History: Reports: None Dermatologic History: Reports: None - Infectious Disease History Infectious Disease History: Reports: None - Past Surgical History Head Surgeries/Procedures: Reports: None HEENT Surgical History: Reports: Oral Surgery GI Surgical History: Reports: Colonoscopy, EGD Endocrine Surgical History: Reports: None Neurological Surgical History: Reports: None Oncologic Surgical History: Reports: None Dermatological Surgical History: Reports: None Social & Family History - Family History Family Medical History: Noncontributory - Tobacco Use Smoking Status *Q: Current Every Day Smoker Years of Tobacco use: 27 Packs/Tins Daily: 0.5 Used Tobacco, but Quit: No Month Tobacco Last Used: July Second Hand Smoke Exposure: No - Caffeine Use Caffeine Use: Reports: Coffee, Energy Drinks, Soda, Tea - Alcohol Use Days Per Week of Alcohol Use: 1 Number of Drinks Per Day: 1 Total Drinks Per Week: 1 - Recreational Drug Use Recreational Drug Use: No Drug Use in Last 12 Months: Yes Recreational Drug Type: Reports: Marijuana/Hashish Other Recreational Drug Type: Used marijuana 1 month ago Recreational Drug Use Frequency: Weekly - Living Situation & Occupation Living situation: Reports: Single Occupation: Disabled ED ROS GENERAL - Review of Systems Review Of Systems: ROS reveals no pertinent complaints other than HPI. ED EXAM, GENERAL - Physical Exam Exam: See Below Course - Vital Signs Last Recorded V/S: Last Vital Signs Temp 35.6 C 10/21/16 23:44 Pulse 94 10/21/16 23:44 Resp 18 10/21/16 23:44 BP 125/80 10/21/16 23:44 Pulse Ox 98 10/21/16 23:44 Departure - Departure Time of Disposition: 00:28 Disposition: Home, Self-Care 01 Condition: Good Clinical Impression: Nonspecific abdominal pain - Discharge Information Referrals: Awais Powers MD [Primary Care Provider] - Additional Instructions: If your abdominal pain persists please follow-up the clinic or return to the emergency room
== END 2016-10-22 00:37 | disposition home or self-care (01) ==
LOC: JP.ED 23:33
DX: R10.9 Unspecified abdominal pain (principal); F17.210 Nicotine dependence, cigarettes, uncomplicated; G43.909 Migraine, unspecified, not intractable, without status migrainosus; I10 Essential (primary) hypertension; K21.9 Gastro-esophageal reflux disease without esophagitis; F41.9 Anxiety disorder, unspecified; F32.9 Major depressive disorder, single episode, unspecified; Z98.890 Other specified postprocedural states; Z79.899 Other long term (current) drug therapy
CPT/HCPCS: 96372; 99284; J1885; 99283

== ENCOUNTER 2016-10-30 20:21 | Emergency (ER) | payer MEDICAID ==
[2016-10-30 21:19] VITALS: BP 114/74
--- NOTE | 2016-10-30 22:37 | EDM.PDOC ---
ED HPI GENERAL MEDICAL PROBLEM - General Chief Complaint: Headache Stated Complaint: STOMACH PAIN Time Seen by Provider: 10/30/16 22:10 Source of Information: Reports: Patient History Limitations: Reports: No Limitations - History of Present Illness INITIAL COMMENTS - FREE TEXT/NARRATIVE: 46-year-old male who frequents the emergency room very often arrives today with multiple complaints of cold symptoms such as runny nose, stuffy head, scratchy throat, cough, headache, mild diarrhea. He took 2 Benadryl a couple hours ago and didn't really get relief so came in. He looks fine, he is afebrile, he did receive a flu vaccination earlier this fall. Onset: Unknown/Unsure (Over the past 2-3 days) Severity: Mild Generalized Pain Score (Numeric/FACES): 10 - Related Data Allergies Allergy/AdvReac Type Severity Reaction Status Date / Time No Known Allergies Allergy Verified 10/30/16 21:59 Home Meds: Home Meds Furosemide [Furosemide] 20 mg PO QAM 03/28/13 [History] Omeprazole [Omeprazole] 40 mg PO QAM 03/28/13 [History] Potassium Chloride [Klor-Con M20] 20 meq PO QAM 03/28/13 [History] Topiramate [Topamax] 50 mg PO BID 03/28/13 [History] Benztropine [Cogentin] 1 mg PO BID 09/23/13 [History] FLUoxetine HCl [Fluoxetine HCl] 40 mg PO DAILY 12/04/13 [History] Montelukast Sodium [Singulair] 10 mg PO DAILY 12/04/13 [History] SUMAtriptan Succinate [Sumatriptan Succinate] 50 mg PO ASDIRECTED PRN 12/04/13 [ History] traZODone HCl [Trazodone HCl] 150 mg PO QPM 12/04/13 [History] ARIPiprazole [Abilify] 20 mg PO BEDTIME 01/03/16 [History] risperiDONE [risperiDONE] 4 mg PO BEDTIME 01/03/16 [History] Past Medical History HEENT History: Reports: Allergic Rhinitis Other HEENT History: MIGRAINES Cardiovascular History: Reports: Hypertension Respiratory History: Reports: Sleep Apnea Gastrointestinal History: Reports: GERD Genitourinary History: Reports: None Musculoskeletal History: Reports: Fracture, Other (See Below), Other (See Below) Other Musculoskeletal History: AC separation from previous injury in football 1988. Left shoulder fx with rotator cuff chip from a fall in Mid Dec 2015. Neurological History: Reports: Concussion, Migraines Psychiatric History: Reports: Anxiety, Depression, Schizophrenia Endocrine/Metabolic History: Reports: None Hematologic History: Reports: None Immunologic History: Reports: None Oncologic (Cancer) History: Reports: None Dermatologic History: Reports: None - Infectious Disease History Infectious Disease History: Reports: None - Past Surgical History Head Surgeries/Procedures: Reports: None HEENT Surgical History: Reports: Oral Surgery GI Surgical History: Reports: Colonoscopy, EGD Endocrine Surgical History: Reports: None Neurological Surgical History: Reports: None Oncologic Surgical History: Reports: None Dermatological Surgical History: Reports: None Social & Family History - Family History Family Medical History: Noncontributory - Tobacco Use Smoking Status *Q: Current Every Day Smoker Years of Tobacco use: 28 Packs/Tins Daily: 0.5 Used Tobacco, but Quit: No Month Tobacco Last Used: July Second Hand Smoke Exposure: No - Caffeine Use Caffeine Use: Reports: Coffee, Soda - Alcohol Use Days Per Week of Alcohol Use: 1 Number of Drinks Per Day: 1 Total Drinks Per Week: 1 - Recreational Drug Use Recreational Drug Use: No Drug Use in Last 12 Months: Yes Recreational Drug Type: Reports: Marijuana/Hashish Other Recreational Drug Type: Used marijuana 1 month ago Recreational Drug Use Frequency: Weekly - Living Situation & Occupation Living situation: Reports: Single Occupation: Disabled ED ROS GENERAL - Review of Systems Review Of Systems: See Below Constitutional: Reports: Malaise. Denies: Fever HEENT: Reports: Rhinitis, Throat Pain Respiratory: Reports: Cough GI/Abdominal: Reports: Abdominal Pain, Diarrhea Skin: Reports: No Symptoms. Denies: Rash Neurological: Reports: Headache Psychiatric: Reports: No Symptoms ED EXAM, GENERAL - Physical Exam Exam: See Below Exam Limited By: No Limitations General Appearance: Alert, No Apparent Distress Eye Exam: Bilateral Eye: Normal Inspection Ears: Normal External Exam, Normal TMs Throat/Mouth: Normal Inspection Respiratory/Chest: Wheezing (A few scattered expiratory wheezes are heard otherwise normal) Cardiovascular: Regular Rate, Rhythm GI/Abdominal: Normal Bowel Sounds, Tender (Reacts with some discomfort with palpation as he always does) Course - Vital Signs Last Recorded V/S: Last Vital Signs Temp 97.2 F 10/30/16 22:02 Pulse 97 10/30/16 22:02 Resp 16 10/30/16 22:02 BP 114/74 10/30/16 22:02 Pulse Ox 96 10/30/16 22:02 - Re-Assessments/Exams Free Text/Narrative Re-Assessment/Exam: 10/30/16 22:36 Influenza antigens were checked and are negative. Patient was reassured he just has a viral cold and will run its course. Departure - Departure Time of Disposition: 22:52 Disposition: Home, Self-Care 01 Condition: Good Clinical Impression: Pharyngitis with viral syndrome - Discharge Information Instructions: Viral Respiratory Infection, [id number] Referrals: Awais Powers MD [Primary Care Provider] - Forms: ED Department Discharge Care Plan Goals: Drink lots of fluids and get plenty of rest. Recheck in 2-3 days if not improving.
== END 2016-10-30 22:52 | disposition home or self-care (01) ==
LOC: JP.ED 20:21
DX: J02.9 Acute pharyngitis, unspecified (principal); B34.9 Viral infection, unspecified; I10 Essential (primary) hypertension; K21.9 Gastro-esophageal reflux disease without esophagitis; F41.9 Anxiety disorder, unspecified; F32.9 Major depressive disorder, single episode, unspecified; F20.9 Schizophrenia, unspecified; F17.210 Nicotine dependence, cigarettes, uncomplicated; Z79.899 Other long term (current) drug therapy
CPT/HCPCS: 87804; 99284

== ENCOUNTER 2016-11-06 00:02 | Emergency (ER) | payer MEDICAID ==
[2016-11-06 00:28] VITALS: BP 126/85
[2016-11-06] MEDS ORDERED: Ketorolac 60 MG/2 ML SDV IM ONE (00:40)
--- NOTE | 2016-11-06 00:44 | EDM.PDOC ---
ED HPI GENERAL MEDICAL PROBLEM - General Chief Complaint: Headache Stated Complaint: HEADACHE Time Seen by Provider: 11/06/16 00:41 Source of Information: Reports: Patient, RN Notes Reviewed History Limitations: Reports: No Limitations - History of Present Illness INITIAL COMMENTS - FREE TEXT/NARRATIVE: 46-year-old gentleman presents emergency department day complaint of migraine headache, he is only asking for Tylenol as he has not at home complaints migraine Pain Score (Numeric/FACES): 10 - Related Data Allergies Allergy/AdvReac Type Severity Reaction Status Date / Time No Known Allergies Allergy Verified 10/30/16 21:59 Home Meds: Home Meds Furosemide [Furosemide] 20 mg PO QAM 03/28/13 [History] Omeprazole [Omeprazole] 40 mg PO QAM 03/28/13 [History] Potassium Chloride [Klor-Con M20] 20 meq PO QAM 03/28/13 [History] Topiramate [Topamax] 50 mg PO BID 03/28/13 [History] Benztropine [Cogentin] 1 mg PO BID 09/23/13 [History] FLUoxetine HCl [Fluoxetine HCl] 40 mg PO DAILY 12/04/13 [History] Montelukast Sodium [Singulair] 10 mg PO DAILY 12/04/13 [History] SUMAtriptan Succinate [Sumatriptan Succinate] 50 mg PO ASDIRECTED PRN 12/04/13 [ History] traZODone HCl [Trazodone HCl] 150 mg PO QPM 12/04/13 [History] ARIPiprazole [Abilify] 20 mg PO BEDTIME 01/03/16 [History] risperiDONE [risperiDONE] 6 mg PO BEDTIME 01/03/16 [History] Past Medical History HEENT History: Reports: Allergic Rhinitis Other HEENT History: MIGRAINES Cardiovascular History: Reports: Hypertension Respiratory History: Reports: Sleep Apnea Gastrointestinal History: Reports: GERD Musculoskeletal History: Reports: Fracture, Other (See Below), Other (See Below) Other Musculoskeletal History: AC separation from previous injury in football 1988. Left shoulder fx with rotator cuff chip from a fall in Mid Dec 2015. Neurological History: Reports: Concussion, Migraines Psychiatric History: Reports: Anxiety, Depression, Schizophrenia - Past Surgical History HEENT Surgical History: Reports: Oral Surgery GI Surgical History: Reports: Colonoscopy, EGD Social & Family History - Family History Family Medical History: Noncontributory - Tobacco Use Smoking Status *Q: Current Every Day Smoker Years of Tobacco use: 27 Packs/Tins Daily: 0.5 Used Tobacco, but Quit: No Month Tobacco Last Used: July Second Hand Smoke Exposure: No - Caffeine Use Caffeine Use: Reports: Coffee, Soda - Alcohol Use Days Per Week of Alcohol Use: 1 Number of Drinks Per Day: 1 Total Drinks Per Week: 1 - Recreational Drug Use Recreational Drug Use: Yes Drug Use in Last 12 Months: Yes Recreational Drug Type: Reports: Marijuana/Hashish Other Recreational Drug Type: Used marijuana 1 month ago Recreational Drug Use Frequency: Weekly - Living Situation & Occupation Living situation: Reports: Single Occupation: Disabled ED ROS GENERAL - Review of Systems Review Of Systems: See Below Constitutional: Reports: No Symptoms Respiratory: Reports: No Symptoms Cardiovascular: Reports: No Symptoms GI/Abdominal: Reports: No Symptoms Neurological: Reports: Headache - Physical Exam Exam: See Below Exam Limited By: No Limitations General Appearance: Alert, WD/WN, No Apparent Distress Eye Exam: Bilateral Eye: Normal Fundi, Normal Inspection Respiratory/Chest: No Respiratory Distress Course - Vital Signs Last Recorded V/S: Last Vital Signs Temp 96.6 F 11/06/16 00:27 Pulse 55 L 11/06/16 00:27 Resp 16 11/06/16 00:27 BP 126/85 11/06/16 00:27 Pulse Ox 96 11/06/16 00:27 - Orders/Labs/Meds Orders: Active Orders 24 hr Category Date Time Status Ketorolac [Toradol] Med 11/06/16 00:40 Once 60 mg IM ONETIME ONE Departure - Departure Time of Disposition: 00:43 Disposition: Home, Self-Care 01 Condition: Good Clinical Impression: Migraine - Discharge Information Referrals: Awais Powers MD [Primary Care Provider] - Additional Instructions: Continue regular medications, Please followup with your primary care provider in 3 to 5 days if not better, please call return to the emergency department with worsening of symptoms. - My Orders Last 24 Hours: My Active Orders 11/06/16 00:40 Ketorolac [Toradol] 60 mg IM ONETIME ONE - Assessment/Plan Last 24 Hours: My Active Orders 11/06/16 00:40 Ketorolac [Toradol] 60 mg IM ONETIME ONE Plan: Assessment Acuity = acute Site and laterality = migraine type headache Etiology = unclear etiology Manifestations = none Location of injury = Home Lab values = none Plan Good improvement with Toradol, follow-up primary care as needed Patient was in agreement with the plan all questions were answered, they were instructed to return to the emergency department or call for worsening symptoms. This note was dictated using [email or web address] voice recognition software please call with any questions.
== END 2016-11-06 01:03 | disposition home or self-care (01) ==
LOC: JP.ED 00:02
DX: G43.909 Migraine, unspecified, not intractable, without status migrainosus (principal); I10 Essential (primary) hypertension; K21.9 Gastro-esophageal reflux disease without esophagitis; F17.210 Nicotine dependence, cigarettes, uncomplicated; F32.9 Major depressive disorder, single episode, unspecified; F41.9 Anxiety disorder, unspecified; Z79.899 Other long term (current) drug therapy
CPT/HCPCS: 96372; 99284; J1885

== ENCOUNTER 2016-11-30 03:01 | Emergency (ER) | payer MEDICAID ==
[2016-11-30 03:38] VITALS: BP 139/83
[2016-11-30] MEDS ORDERED: Ketorolac 30 MG/ML SDV IM ONE (03:46)
--- NOTE | 2016-11-30 03:52 | EDM.PDOC ---
ED HPI GENERAL MEDICAL PROBLEM - General Chief Complaint: Headache Stated Complaint: HEADACHE Time Seen by Provider: 11/30/16 03:35 Source of Information: Reports: Patient History Limitations: Reports: No Limitations - History of Present Illness INITIAL COMMENTS - FREE TEXT/NARRATIVE: 46 year old male with a 4 day history of right sided headache. Constant aching, not improving with use of tylenol, ibuprofen, imitrex. Has had a long hx of recurrent migraines in past, taking bid topamax for prophylaxis. having some cold sxs but denies sinus pain or nasal drainage. No fevers, having some right sided jaw pain. No nausea or vomiting or visual changes Onset Date: 11/27/16 Duration: Getting Worse Location: Reports: Head Severity: Moderate Improves with: Reports: None Worsens with: Reports: Movement Associated Symptoms: Denies: Cough, Fever/Chills, Nausea/Vomiting, Shortness of Breath Treatments ESCALATOR ATTENDANT: Reports: Acetaminophen, NSAIDS, Other Medication(s) (imitrex) headache Pain Score (Numeric/FACES): 8 - Related Data Allergies Allergy/AdvReac Type Severity Reaction Status Date / Time No Known Allergies Allergy Verified 11/30/16 03:32 Home Meds: Home Meds Furosemide [Furosemide] 20 mg PO QAM 03/28/13 [History] Omeprazole [Omeprazole] 40 mg PO QAM 03/28/13 [History] Potassium Chloride [Klor-Con M20] 20 meq PO QAM 03/28/13 [History] Topiramate [Topamax] 50 mg PO BID 03/28/13 [History] Benztropine [Cogentin] 1 mg PO BID 09/23/13 [History] FLUoxetine HCl [Fluoxetine HCl] 40 mg PO DAILY 12/04/13 [History] Montelukast Sodium [Singulair] 10 mg PO DAILY 12/04/13 [History] SUMAtriptan Succinate [Sumatriptan Succinate] 50 mg PO ASDIRECTED PRN 12/04/13 [ History] traZODone HCl [Trazodone HCl] 150 mg PO QPM 12/04/13 [History] ARIPiprazole [Abilify] 20 mg PO BEDTIME 01/03/16 [History] risperiDONE [risperiDONE] 6 mg PO BEDTIME 01/03/16 [History] Ibuprofen 600 mg PO ASDIRECTED 11/30/16 [History] Past Medical History HEENT History: Reports: Allergic Rhinitis Other HEENT History: MIGRAINES Cardiovascular History: Reports: Hypertension Respiratory History: Reports: Sleep Apnea Gastrointestinal History: Reports: GERD Genitourinary History: Reports: None Musculoskeletal History: Reports: Fracture, Other (See Below), Other (See Below) Other Musculoskeletal History: AC separation from previous injury in football 1988. Left shoulder fx with rotator cuff chip from a fall in Mid Dec 2015. Neurological History: Reports: Concussion, Migraines Psychiatric History: Reports: Anxiety, Depression, Schizophrenia Endocrine/Metabolic History: Reports: None Hematologic History: Reports: None Immunologic History: Reports: None Oncologic (Cancer) History: Reports: None Dermatologic History: Reports: None - Past Surgical History HEENT Surgical History: Reports: Oral Surgery GI Surgical History: Reports: Colonoscopy, EGD Endocrine Surgical History: Reports: None Oncologic Surgical History: Reports: None Dermatological Surgical History: Reports: None Social & Family History - Family History Family Medical History: Noncontributory - Tobacco Use Smoking Status *Q: Current Every Day Smoker Years of Tobacco use: 28 Packs/Tins Daily: 0.5 Used Tobacco, but Quit: No Month Tobacco Last Used: July Second Hand Smoke Exposure: No - Caffeine Use Caffeine Use: Reports: Coffee, Soda - Alcohol Use Days Per Week of Alcohol Use: 1 Number of Drinks Per Day: 1 Total Drinks Per Week: 1 - Recreational Drug Use Recreational Drug Use: No Drug Use in Last 12 Months: Yes Recreational Drug Type: Reports: Marijuana/Hashish Other Recreational Drug Type: Used marijuana 1 month ago Recreational Drug Use Frequency: Weekly - Living Situation & Occupation Living situation: Reports: Single Occupation: Disabled ED ROS GENERAL - Review of Systems Review Of Systems: See Below Constitutional: Denies: Fever, Malaise, Weakness HEENT: Reports: Other (right jaw pain). Denies: Dental Pain, Eye Pain, Sinus Problem, Throat Pain, Throat Swelling Respiratory: Reports: No Symptoms Cardiovascular: Reports: No Symptoms GI/Abdominal: Reports: No Symptoms Musculoskeletal: Reports: No Symptoms Neurological: Reports: Headache. Denies: Numbness, Tingling, Tremors, Trouble Speaking Psychiatric: Reports: No Symptoms - Physical Exam Exam: See Below Exam Limited By: No Limitations General Appearance: Alert, No Apparent Distress Ears: Normal External Exam, Normal Canal, Hearing Grossly Normal, Normal TMs Nose: Normal Inspection, Normal Mucosa, No Blood Throat/Mouth: Normal Inspection, Normal Lips, Normal Teeth, Normal Oropharynx Head Exam: Atraumatic, Normocephalic. No: Facial Ecchymosis Neck: Normal Inspection, Supple, Non-Tender Respiratory/Chest: No Respiratory Distress, Lungs Clear Cardiovascular: Normal Peripheral Pulses, Regular Rate, Rhythm GI/Abdominal: Soft Neuro Exam (Abbreviated): Alert, Oriented, CN II-XII Intact, Normal Cognition, Normal Gait, Normal Reflexes, No Motor/Sensory Deficits Extremities: Normal Inspection, Normal Range of Motion Psychiatric: Normal Affect, Normal Mood Course - Vital Signs Last Recorded V/S: Last Vital Signs Temp 35.3 C 11/30/16 03:34 Pulse 106 H 11/30/16 03:34 Resp 16 11/30/16 03:34 BP 139/83 11/30/16 03:34 Pulse Ox 97 11/30/16 03:34 - Orders/Labs/Meds Meds: Medications Discontinued Medications Generic Name Dose Route Start Last Admin Trade Name Farzadq PRN Reason Stop Dose Admin Acetaminophen 975 mg 11/30/16 04:30 11/30/16 04:44 Tylenol PO 11/30/16 04:31 975 mg NOW ONE Administration Ketorolac Tromethamine 30 mg 11/30/16 03:46 11/30/16 03:58 Toradol IM 11/30/16 03:47 30 mg ONETIME ONE Administration Departure - Departure Time of Disposition: 04:58 Disposition: Home, Self-Care 01 Clinical Impression: Migraine headache without aura Qualifiers: Status migrainosus presence: without status migrainosus Intractability: not intractable Qualified Code(s): G43.009 - Migraine without aura, not intractable , without status migrainosus - Discharge Information Referrals: Awais Powers MD [Primary Care Provider] - Forms: ED Department Discharge - Assessment/Plan Assessment:: 46 year old male with hx of recurrent migraine headaches, presented to the ED with a similar headache for past 4 days. He was treated with 30 mg of IM toradol and 975 mg of tylenol. His headache improved and he was asking to go home. He will be discharged and will continue his home meds.
[2016-11-30] MEDS ORDERED: Acetaminophen 325 MG Tab PO ONE (04:30)
== END 2016-11-30 05:07 | disposition home or self-care (01) ==
LOC: JP.ED 03:01
DX: G43.009 Migraine without aura, not intractable, without status migrainosus (principal); F17.210 Nicotine dependence, cigarettes, uncomplicated; I10 Essential (primary) hypertension; K21.9 Gastro-esophageal reflux disease without esophagitis; Z79.899 Other long term (current) drug therapy
CPT/HCPCS: 96372; 99284; A9270; J1885; 99283

== ENCOUNTER 2016-12-18 20:11 | Emergency (ER) | payer MEDICAID ==
[2016-12-18 20:26] VITALS: BP 117/81
[2016-12-18] MEDS ORDERED: Ondansetron 4 MG Tab.DIS PO ONE (20:43)
[2016-12-18] MEDS ORDERED: Ketorolac 60 MG/2 ML SDV IM ONE (20:43)
[2016-12-18] MEDS ORDERED: Acetaminophen Soln 650 MG/20.3 ML UD Cup PO ONE (20:46)
--- NOTE | 2016-12-18 20:51 | EDM.PDOC ---
ED HPI GENERAL MEDICAL PROBLEM - General Chief Complaint: Headache Stated Complaint: MIGRAINE Time Seen by Provider: 12/18/16 20:25 Source of Information: Reports: Patient History Limitations: Reports: No Limitations - History of Present Illness INITIAL COMMENTS - FREE TEXT/NARRATIVE: migraine headache; this is a 46 year old male who has frequent Migraine Headaches. Today he work up at 07:30 am with usual migraine headache. starting on right side of head, mild nausea. tired otc Motrin, 2 Aleve without relief of symptoms. He denies any falls or injuries. He feels the migraine headache is from the change of weather. denies any other symptoms. Onset: Gradual Onset Date: 12/18/16 Onset Time: 07:30 Duration: Day(s): Location: Reports: Head Quality: Reports: Same as Previous Episode Severity: Moderate Improves with: Reports: None Worsens with: Reports: None Associated Symptoms: Reports: Headaches, Nausea/Vomiting (mild nausea without vomiting) Treatments OIL EXPERT: Reports: NSAIDS, Other (see below) Other Treatments OIL EXPERT: Unknown migraine Pain Score (Numeric/FACES): 8 - Related Data Allergies Allergy/AdvReac Type Severity Reaction Status Date / Time No Known Allergies Allergy Verified 12/18/16 20:28 Home Meds: Home Meds Furosemide [Furosemide] 20 mg PO QAM 03/28/13 [History] Omeprazole [Omeprazole] 40 mg PO QAM 03/28/13 [History] Potassium Chloride [Klor-Con M20] 20 meq PO QAM 03/28/13 [History] Topiramate [Topamax] 50 mg PO BID 03/28/13 [History] Benztropine [Cogentin] 1 mg PO BID 09/23/13 [History] FLUoxetine HCl [Fluoxetine HCl] 40 mg PO DAILY 12/04/13 [History] Montelukast Sodium [Singulair] 10 mg PO DAILY 12/04/13 [History] SUMAtriptan Succinate [Sumatriptan Succinate] 50 mg PO ASDIRECTED PRN 12/04/13 [ History] traZODone HCl [Trazodone HCl] 150 mg PO QPM 12/04/13 [History] ARIPiprazole [Abilify] 20 mg PO BEDTIME 01/03/16 [History] risperiDONE [risperiDONE] 6 mg PO BEDTIME 01/03/16 [History] Ibuprofen 600 mg PO ASDIRECTED 10/20/17 [History] Past Medical History HEENT History: Reports: Allergic Rhinitis Other HEENT History: MIGRAINES Cardiovascular History: Reports: Hypertension Respiratory History: Reports: Sleep Apnea Gastrointestinal History: Reports: GERD Genitourinary History: Reports: None Musculoskeletal History: Reports: Fracture, Other (See Below), Other (See Below) Other Musculoskeletal History: AC separation from previous injury in football 1988. Left shoulder fx with rotator cuff chip from a fall in Mid Dec 2015. Neurological History: Reports: Concussion, Migraines Psychiatric History: Reports: Anxiety, Depression, Schizophrenia Endocrine/Metabolic History: Reports: None Hematologic History: Reports: None Immunologic History: Reports: None Oncologic (Cancer) History: Reports: None Dermatologic History: Reports: None - Past Surgical History HEENT Surgical History: Reports: Oral Surgery GI Surgical History: Reports: Colonoscopy, EGD Endocrine Surgical History: Reports: None Social & Family History - Family History Family Medical History: Noncontributory - Tobacco Use Smoking Status *Q: Current Every Day Smoker Years of Tobacco use: 25 Packs/Tins Daily: 0.5 Used Tobacco, but Quit: No Month Tobacco Last Used: July Second Hand Smoke Exposure: No - Caffeine Use Caffeine Use: Reports: Coffee, Energy Drinks, Soda, Tea - Alcohol Use Days Per Week of Alcohol Use: 1 Number of Drinks Per Day: 1 Total Drinks Per Week: 1 - Recreational Drug Use Recreational Drug Use: No Drug Use in Last 12 Months: Yes Recreational Drug Type: Reports: Marijuana/Hashish Other Recreational Drug Type: Used marijuana 1 month ago Recreational Drug Use Frequency: Weekly - Living Situation & Occupation Living situation: Reports: Single Occupation: Disabled ED ROS GENERAL - Review of Systems Review Of Systems: See Below Constitutional: Reports: Other (right sided headache) HEENT: Reports: No Symptoms Respiratory: Reports: No Symptoms Cardiovascular: Reports: No Symptoms Endocrine: Reports: No Symptoms GI/Abdominal: Reports: Nausea : Reports: No Symptoms Musculoskeletal: Reports: No Symptoms Skin: Reports: No Symptoms Neurological: Reports: Headache Psychiatric: Reports: No Symptoms Hematologic/Lymphatic: Reports: No Symptoms Immunologic: Reports: No Symptoms ED EXAM, GENERAL - Physical Exam Exam: See Below Exam Limited By: No Limitations General Appearance: Alert, WD/WN, No Apparent Distress, Other (very pleasant, polite, neat and well groomed male) Eye Exam: Bilateral Eye: EOMI, Normal Inspection, PERRL Ears: Normal External Exam, Normal Canal, Hearing Grossly Normal, Normal TMs Ear Exam: Bilateral Ear: Auricle Normal, Canal Normal, TM normal Nose: Normal Inspection, Normal Mucosa, No Blood Throat/Mouth: Normal Inspection, Normal Lips, Normal Teeth, Normal Gums, Normal Oropharynx, Normal Voice, No Airway Compromise Head: Atraumatic, Normocephalic Neck: Normal Inspection, Supple, Non-Tender, Full Range of Motion Respiratory/Chest: No Respiratory Distress, Lungs Clear, Normal Breath Sounds, No Accessory Muscle Use, Chest Non-Tender Cardiovascular: Regular Rate, Rhythm, No Murmur GI/Abdominal: Normal Bowel Sounds, Soft, Non-Tender, No Organomegaly, No Distention, No Abnormal Bruit, No Mass Extremities: Normal Inspection, Normal Range of Motion, Non-Tender, Normal Capillary Refill, No Pedal Edema Neurological: Alert, Oriented, CN II-XII Intact, Normal Cognition, Normal Gait, Normal Reflexes, No Motor/Sensory Deficits Psychiatric: Normal Affect, Normal Mood Skin Exam: Warm, Dry, Intact, Normal Color, No Rash Lymphatic: No Adenopathy Course - Vital Signs Last Recorded V/S: Last Vital Signs Temp 36.2 C 12/18/16 20:25 Pulse 98 12/18/16 20:25 Resp 16 12/18/16 20:25 BP 117/81 12/18/16 20:25 Pulse Ox 97 12/18/16 20:25 - Orders/Labs/Meds Meds: Medications Discontinued Medications Generic Name Dose Route Start Last Admin Trade Name Stefany PRN Reason Stop Dose Admin Acetaminophen 650 mg 12/18/16 20:46 12/18/16 20:52 Tylenol PO 12/18/16 20:47 650 mg ONETIME ONE Administration Ketorolac Tromethamine 60 mg 12/18/16 20:43 12/18/16 20:47 Toradol IM 12/18/16 20:44 60 mg ONETIME ONE Administration Ondansetron HCl 4 mg 12/18/16 20:43 12/18/16 20:47 Zofran Odt PO 12/18/16 20:44 4 mg ONETIME ONE Administration - Re-Assessments/Exams Free Text/Narrative Re-Assessment/Exam: 12/18/16 20:53 will give Toradol 60 mg IM, Zofran 4mg odt, Tylenol 650mg po. monitor for relief of symptoms. Departure - Departure Time of Disposition: 20:56 Disposition: Home, Self-Care 01 Condition: Good Clinical Impression: Migraine headache without aura Qualifiers: Status migrainosus presence: without status migrainosus Intractability: not intractable Qualified Code(s): G43.009 - Migraine without aura, not intractable , without status migrainosus - Discharge Information Referrals: Awais Powers MD [Primary Care Provider] - Forms: ED Department Discharge Care Plan Goals: migraine headache -rest -drink plenty of water, 8 to 10 glasses per day -take medication as directed -follow up with Primary Care for recheck return to Clinic, Urgent Care or ER if not improved or symptoms worsen. - Problem List & Annotations (1) Migraine SNOMED Code(s): 32004945 Code(s): G43.909 - MIGRAINE, UNSP, NOT INTRACTABLE, WITHOUT STATUS MIGRAINOSUS Status: Chronic Priority: High Current Visit: Yes - Problem List Review Problem List Initiated/Reviewed/Updated: Yes - Assessment/Plan Plan: migraine headache -rest -drink plenty of water, 8 to 10 glasses per day -take medication as directed -follow up with Primary Care for recheck return to Clinic, Urgent Care or ER if not improved or symptoms worsen.
== END 2016-12-18 20:59 | disposition home or self-care (01) ==
LOC: JP.ED 20:11
DX: G43.009 Migraine without aura, not intractable, without status migrainosus (principal); I10 Essential (primary) hypertension; K21.9 Gastro-esophageal reflux disease without esophagitis; F17.210 Nicotine dependence, cigarettes, uncomplicated; Z79.899 Other long term (current) drug therapy
CPT/HCPCS: 96372; 99284; A9270; J1885; 99283

== ENCOUNTER 2016-12-21 01:42 | Emergency (ER) | payer MEDICAID ==
[2016-12-21 01:58] VITALS: BP 118/77
[2016-12-21] MEDS ORDERED: Ketorolac 60 MG/2 ML SDV IM ONE (02:21)
[2016-12-21] MEDS ORDERED: Nalbuphine 10 MG/1 ML Vial IM ONE (02:22)
--- NOTE | 2016-12-21 02:29 | EDM.PDOC ---
ED HPI GENERAL MEDICAL PROBLEM - General Chief Complaint: Headache Stated Complaint: MIGRAINE Time Seen by Provider: 12/21/16 02:15 Source of Information: Reports: Patient, Old Records History Limitations: Reports: No Limitations - History of Present Illness INITIAL COMMENTS - FREE TEXT/NARRATIVE: 46 yo male here with a R sided BAUER that began tonight. Gets frequent BAUER's. Was here on 12/18 and got Toradol and Zofran for a BAUER that went away. Denies nausea or fever. Walked here from his home. No recent head trauma. Onset: Today Onset Date: 12/21/16 Onset Time: 01:00 Duration: Minutes:, Constant Location: Reports: Head Quality: Reports: Ache Severity: Moderate Improves with: Reports: None Worsens with: Reports: None Context: Reports: Other (Hx of frequent BAUER's) Associated Symptoms: Reports: No Other Symptoms Treatments DIE STAMPER: Reports: Other (see below) (none) BAUER Pain Score (Numeric/FACES): 7 - Related Data Allergies Allergy/AdvReac Type Severity Reaction Status Date / Time No Known Allergies Allergy Verified 12/18/16 20:28 Home Meds: Home Meds Furosemide [Furosemide] 20 mg PO QAM 03/28/13 [History] Omeprazole [Omeprazole] 40 mg PO QAM 03/28/13 [History] Potassium Chloride [Klor-Con M20] 20 meq PO QAM 03/28/13 [History] Topiramate [Topamax] 50 mg PO BID 03/28/13 [History] Benztropine [Cogentin] 1 mg PO BID 09/23/13 [History] FLUoxetine HCl [Fluoxetine HCl] 40 mg PO DAILY 12/04/13 [History] Montelukast Sodium [Singulair] 10 mg PO DAILY 12/04/13 [History] ARIPiprazole [Abilify] 20 mg PO BEDTIME 01/03/16 [History] risperiDONE [risperiDONE] 6 mg PO BEDTIME 01/03/16 [History] Ibuprofen 600 mg PO ASDIRECTED 11/30/16 [History] Magnesium 250 mg PO DAILY 12/21/16 [History] Past Medical History HEENT History: Reports: Allergic Rhinitis Other HEENT History: MIGRAINES Cardiovascular History: Reports: Hypertension Respiratory History: Reports: Sleep Apnea Gastrointestinal History: Reports: GERD Genitourinary History: Reports: None Musculoskeletal History: Reports: Fracture, Other (See Below), Other (See Below) Other Musculoskeletal History: AC separation from previous injury in football 1988. Left shoulder fx with rotator cuff chip from a fall in Mid Dec 2015. Neurological History: Reports: Concussion, Migraines Psychiatric History: Reports: Anxiety, Depression, Schizophrenia Endocrine/Metabolic History: Reports: None Hematologic History: Reports: None Immunologic History: Reports: None Oncologic (Cancer) History: Reports: None Dermatologic History: Reports: None - Past Surgical History Head Surgeries/Procedures: Reports: None HEENT Surgical History: Reports: Oral Surgery GI Surgical History: Reports: Colonoscopy, EGD Social & Family History - Family History Family Medical History: Noncontributory - Tobacco Use Smoking Status *Q: Current Every Day Smoker Years of Tobacco use: 31 Packs/Tins Daily: 0.3 Used Tobacco, but Quit: No Month Tobacco Last Used: July Second Hand Smoke Exposure: No - Caffeine Use Caffeine Use: Reports: Coffee, Energy Drinks, Soda, Tea - Alcohol Use Days Per Week of Alcohol Use: 1 Number of Drinks Per Day: 1 Total Drinks Per Week: 1 - Recreational Drug Use Recreational Drug Use: No Drug Use in Last 12 Months: Yes Recreational Drug Type: Reports: Marijuana/Hashish Other Recreational Drug Type: Used marijuana 1 month ago Recreational Drug Use Frequency: Weekly - Living Situation & Occupation Living situation: Reports: Single Occupation: Disabled ED ROS GENERAL - Review of Systems Review Of Systems: See Below Constitutional: Reports: No Symptoms HEENT: Reports: No Symptoms Respiratory: Reports: No Symptoms Cardiovascular: Reports: No Symptoms GI/Abdominal: Reports: No Symptoms. Denies: Nausea, Vomiting Musculoskeletal: Reports: No Symptoms Skin: Reports: No Symptoms Neurological: Reports: Headache. Denies: Confusion, Dizziness, Numbness, Weakness Psychiatric: Reports: No Symptoms - Physical Exam Exam: See Below Exam Limited By: No Limitations General Appearance: Alert, WD/WN, No Apparent Distress Eye Exam: Bilateral Eye: Normal Inspection, PERRL Ears: Normal External Exam, Normal Canal, Hearing Grossly Normal, Normal TMs Throat/Mouth: Normal Inspection, Normal Lips, Normal Oropharynx, Normal Voice, No Airway Compromise Head Exam: Atraumatic, Normocephalic Neck: Normal Inspection, Supple Respiratory/Chest: No Respiratory Distress, Lungs Clear, Normal Breath Sounds, No Accessory Muscle Use Cardiovascular: Regular Rate, Rhythm, No Edema Neuro Exam (Abbreviated): Alert, Oriented, CN II-XII Intact, No Motor/Sensory Deficits Extremities: Normal Inspection, Normal Range of Motion, Non-Tender, No Pedal Edema Psychiatric: Normal Affect, Normal Mood Skin Exam: Warm, Dry, Intact, Normal Color, No Rash Course - Vital Signs Last Recorded V/S: Last Vital Signs Temp 36.8 C 12/21/16 01:57 Pulse 109 H 12/21/16 01:57 Resp 18 12/21/16 01:57 BP 118/77 12/21/16 01:57 Pulse Ox 95 12/21/16 01:57 - Orders/Labs/Meds Orders: Active Orders 24 hr Category Date Time Status Ketorolac [Toradol] Med 12/21/16 02:21 Once 60 mg IM ONETIME ONE Nalbuphine [Nubain] Med 12/21/16 02:22 Once 5 mg IM ONETIME ONE Medication Orders Ketorolac Tromethamine (Toradol) 60 mg IM ONETIME ONE Stop: 12/21/16 02:22 Nalbuphine HCl (Nubain) 5 mg IM ONETIME ONE Stop: 12/21/16 02:23 Meds: Medications Generic Name Dose Route Start Last Admin Trade Name Freq PRN Reason Stop Dose Admin Ketorolac Tromethamine 60 mg 12/21/16 02:21 Toradol IM 12/21/16 02:22 ONETIME ONE Nalbuphine HCl 5 mg 12/21/16 02:22 Nubain IM 12/21/16 02:23 ONETIME ONE Departure - Departure Time of Disposition: 02:45 Disposition: Home, Self-Care 01 Condition: Fair Clinical Impression: Migraine - Discharge Information Referrals: Awais Powers MD [Primary Care Provider] - Forms: ED Department Discharge Additional Instructions: Drink sufficient fluids so that your urine is very light yellow in color. For future BAUER's consider taking 2 Aleve right away OR 2 Excedrin Migraine. Recheck as needed. - My Orders Last 24 Hours: My Active Orders 12/21/16 02:21 Ketorolac [Toradol] 60 mg IM ONETIME ONE 12/21/16 02:22 Nalbuphine [Nubain] 5 mg IM ONETIME ONE - Assessment/Plan Last 24 Hours: My Active Orders 12/21/16 02:21 Ketorolac [Toradol] 60 mg IM ONETIME ONE 12/21/16 02:22 Nalbuphine [Nubain] 5 mg IM ONETIME ONE
== END 2016-12-21 02:48 | disposition home or self-care (01) ==
LOC: JP.ED 01:42
DX: G43.909 Migraine, unspecified, not intractable, without status migrainosus (principal); F17.210 Nicotine dependence, cigarettes, uncomplicated; F41.9 Anxiety disorder, unspecified; F32.9 Major depressive disorder, single episode, unspecified; Z79.899 Other long term (current) drug therapy
CPT/HCPCS: 96372; 99283; J1885; J2300

== ENCOUNTER 2017-01-08 22:58 | Emergency (ER) | payer MEDICAID ==
[2017-01-08 23:14] VITALS: BP 134/81
[2017-01-08] MEDS ORDERED: Cyclobenzaprine 10 MG Tab PO ONE (23:57)
[2017-01-08] MEDS ORDERED: Ketorolac 30 MG/ML SDV IM ONE (23:57)
--- NOTE | 2017-01-08 23:59 | EDM.PDOC ---
ED HPI GENERAL MEDICAL PROBLEM - General Chief Complaint: General Stated Complaint: STIFF NECK Time Seen by Provider: 01/08/17 23:54 Source of Information: Reports: Patient, Old Records, RN Notes Reviewed History Limitations: Reports: Other (mental health disorder) - History of Present Illness INITIAL COMMENTS - FREE TEXT/NARRATIVE: walked here from home, a couple blocks Chief complaint Stiff and painful neck History of present illness 46-year-old male awoke with sore neck this morning. It's gradually increased in discomfort during the day. No history of injury His neck feels very stiff, gradually worsened over the course the day, strong enough to keep him awake. History of schizophrenia and anxiety Remote history of similar neck pain in the past Neck Pain Score (Numeric/FACES): 10 - Related Data Allergies Allergy/AdvReac Type Severity Reaction Status Date / Time No Known Allergies Allergy Verified 01/08/17 23:24 Home Meds: Home Meds Furosemide [Furosemide] 20 mg PO QAM 03/28/13 [History] Omeprazole [Omeprazole] 40 mg PO QAM 03/28/13 [History] Potassium Chloride [Klor-Con M20] 20 meq PO QAM 03/28/13 [History] Topiramate [Topamax] 50 mg PO BID 03/28/13 [History] Benztropine [Cogentin] 1 mg PO BID 09/23/13 [History] FLUoxetine HCl [Fluoxetine HCl] 40 mg PO DAILY 12/04/13 [History] Montelukast Sodium [Singulair] 10 mg PO DAILY 12/04/13 [History] ARIPiprazole [Abilify] 20 mg PO BEDTIME 01/03/16 [History] risperiDONE [risperiDONE] 6 mg PO BEDTIME 01/03/16 [History] Ibuprofen 600 mg PO ASDIRECTED 11/30/16 [History] Magnesium 250 mg PO DAILY 12/21/16 [History] Past Medical History HEENT History: Reports: Allergic Rhinitis Other HEENT History: MIGRAINES Cardiovascular History: Reports: Hypertension Respiratory History: Reports: Sleep Apnea Gastrointestinal History: Reports: GERD Genitourinary History: Reports: None Musculoskeletal History: Reports: Fracture, Other (See Below), Other (See Below) Other Musculoskeletal History: AC separation from previous injury in football 1988. Left shoulder fx with rotator cuff chip from a fall in Mid Dec 2015. Neurological History: Reports: Concussion, Migraines Psychiatric History: Reports: Anxiety, Depression, Schizophrenia Endocrine/Metabolic History: Reports: None Hematologic History: Reports: None Immunologic History: Reports: None Oncologic (Cancer) History: Reports: None Dermatologic History: Reports: None - Past Surgical History Head Surgeries/Procedures: Reports: None HEENT Surgical History: Reports: Oral Surgery GI Surgical History: Reports: Colonoscopy, EGD Social & Family History - Family History Family Medical History: Noncontributory - Tobacco Use Smoking Status *Q: Current Every Day Smoker Years of Tobacco use: 31 Packs/Tins Daily: 0.3 Used Tobacco, but Quit: No Month Tobacco Last Used: July Tobacco Use Comment: current every day smoker Second Hand Smoke Exposure: No - Caffeine Use Caffeine Use: Reports: Coffee - Alcohol Use Days Per Week of Alcohol Use: 1 Number of Drinks Per Day: 1 Total Drinks Per Week: 1 - Recreational Drug Use Recreational Drug Use: Yes Drug Use in Last 12 Months: Yes Recreational Drug Type: Reports: Marijuana/Hashish, Methamphetamine Other Recreational Drug Type: Used marijuana 1 month ago Recreational Drug Use Frequency: Weekly - Living Situation & Occupation Living situation: Reports: Single Occupation: Disabled ED ROS GENERAL - Review of Systems Review Of Systems: ROS reveals no pertinent complaints other than HPI. Musculoskeletal: Reports: Neck Pain (and stiffness). Denies: Arm Pain, Back Pain, Hand Pain, Leg Pain ED EXAM, GENERAL - Physical Exam Exam: See Below Exam Limited By: No Limitations General Appearance: Alert, Anxious, Mild Distress, Other (normal vital signs) Eye Exam: Bilateral Eye: Normal Inspection Head: Atraumatic, Normocephalic Neck: Normal Inspection, Limited Range of Motion, Tender Lateral Respiratory/Chest: No Respiratory Distress, No Accessory Muscle Use Cardiovascular: Normal Peripheral Pulses, Regular Rate, Rhythm Extremities: Normal Inspection, Normal Range of Motion Neurological: Alert, Other (symmetrical strength) Psychiatric: Anxious Skin Exam: Warm, Intact, Normal Color, No Rash Lymphatic: No Adenopathy Course - Vital Signs Last Recorded V/S: Last Vital Signs Temp 35.9 C 01/08/17 23:25 Pulse 99 01/08/17 23:25 Resp 16 01/08/17 23:25 BP 134/81 01/08/17 23:25 Pulse Ox 94 L 01/08/17 23:25 - Orders/Labs/Meds Meds: Medications Discontinued Medications Generic Name Dose Route Start Last Admin Trade Name Stefany PRN Reason Stop Dose Admin Cyclobenzaprine HCl 10 mg 01/08/17 23:57 Flexeril PO 01/08/17 23:58 ONETIME ONE Ketorolac Tromethamine 15 mg 01/08/17 23:57 Toradol IM 01/08/17 23:58 ONETIME ONE - Re-Assessments/Exams Free Text/Narrative Re-Assessment/Exam: 01/09/17 00:04 46-year-old male with schizophreniform disorder presenting with sore and stiff neck since this morning. Limited range of motion, tenderness laterally, no evidence of peripheral neuropathy Tender in the paracervical muscle area Impression is a muscle strain Toradol 15 mg IM, cyclobenzaprine 10 mg by mouth Departure - Departure Time of Disposition: 00:20 Disposition: Home, Self-Care 01 Condition: Good Clinical Impression: Spastic torticollis - Discharge Information Instructions: Acute Torticollis Referrals: Awais Powers MD [Primary Care Provider] - Forms: ED Department Discharge Additional Instructions: applying heat is usually helpful to the stiff neck make an appointment with your regular provider if it doesn't improve within a few days
== END 2017-01-09 00:15 | disposition home or self-care (01) ==
LOC: JP.ED 22:58
DX: G24.3 Spasmodic torticollis (principal); I10 Essential (primary) hypertension; K21.9 Gastro-esophageal reflux disease without esophagitis; F32.9 Major depressive disorder, single episode, unspecified; F17.210 Nicotine dependence, cigarettes, uncomplicated; Z79.899 Other long term (current) drug therapy
CPT/HCPCS: 96372; 99283; A9270; J1885

== ENCOUNTER 2017-01-13 03:11 | Emergency (ER) | payer MEDICAID ==
[2017-01-13 03:30] VITALS: BP 131/92
[2017-01-13] MEDS ORDERED: NAPROXEN PO ONE (03:40)
--- NOTE | 2017-01-13 03:43 | EDM.PDOC ---
ED HPI GENERAL MEDICAL PROBLEM - General Chief Complaint: Headache Stated Complaint: HEADACHE Time Seen by Provider: 01/13/17 03:30 Source of Information: Reports: Patient History Limitations: Reports: No Limitations - History of Present Illness INITIAL COMMENTS - FREE TEXT/NARRATIVE: 46-year-old male who frequents the emergency room often is in the night with a headache. It is a recurrence of his chronic headache. He thinks it's because he was very active today with his friends and smoked "a whole pack of cigarettes". He was in the emergency room with a headache 2 weeks ago and was told that next time he gets a headache he should try some naproxen. He didn't take any because he "doesn't have any". No nausea or vomiting, no fever, no trauma. Onset: Gradual Severity: Mild (Started last evening and worsened as the night went on) headache Pain Score (Numeric/FACES): 8 - Related Data Allergies Allergy/AdvReac Type Severity Reaction Status Date / Time No Known Allergies Allergy Verified 01/13/17 03:27 Home Meds: Home Meds Furosemide [Furosemide] 20 mg PO QAM 03/28/13 [History] Omeprazole [Omeprazole] 40 mg PO QAM 03/28/13 [History] Potassium Chloride [Klor-Con M20] 20 meq PO QAM 03/28/13 [History] Topiramate [Topamax] 50 mg PO BID 03/28/13 [History] Benztropine [Cogentin] 1 mg PO BID 09/23/13 [History] FLUoxetine HCl [Fluoxetine HCl] 40 mg PO DAILY 12/04/13 [History] Montelukast Sodium [Singulair] 10 mg PO DAILY 12/04/13 [History] ARIPiprazole [Abilify] 20 mg PO BEDTIME 01/03/16 [History] risperiDONE [risperiDONE] 6 mg PO BEDTIME 01/03/16 [History] Ibuprofen 600 mg PO ASDIRECTED 11/30/16 [History] Magnesium 250 mg PO DAILY 12/21/16 [History] Past Medical History HEENT History: Reports: Allergic Rhinitis Other HEENT History: MIGRAINES Cardiovascular History: Reports: Hypertension Respiratory History: Reports: Sleep Apnea Gastrointestinal History: Reports: GERD Genitourinary History: Reports: None Musculoskeletal History: Reports: Fracture, Other (See Below), Other (See Below) Other Musculoskeletal History: AC separation from previous injury in football 1988. Left shoulder fx with rotator cuff chip from a fall in Mid Dec 2015. Neurological History: Reports: Concussion, Headaches, Chronic, Migraines Psychiatric History: Reports: Anxiety, Depression, Schizophrenia Endocrine/Metabolic History: Reports: None Hematologic History: Reports: None Immunologic History: Reports: None Oncologic (Cancer) History: Reports: None Dermatologic History: Reports: None - Past Surgical History HEENT Surgical History: Reports: Oral Surgery GI Surgical History: Reports: Colonoscopy, EGD Social & Family History - Family History Family Medical History: Noncontributory - Tobacco Use Smoking Status *Q: Current Every Day Smoker Years of Tobacco use: 27 Packs/Tins Daily: 0.2 Used Tobacco, but Quit: No Month Tobacco Last Used: July Second Hand Smoke Exposure: No - Caffeine Use Caffeine Use: Reports: Coffee, Energy Drinks, Soda - Alcohol Use Days Per Week of Alcohol Use: 1 Number of Drinks Per Day: 1 Total Drinks Per Week: 1 - Recreational Drug Use Recreational Drug Use: No Drug Use in Last 12 Months: Yes Recreational Drug Type: Reports: Marijuana/Hashish, Methamphetamine Other Recreational Drug Type: Used marijuana 1 month ago Recreational Drug Use Frequency: Weekly - Living Situation & Occupation Living situation: Reports: Single Occupation: Disabled ED ROS GENERAL - Review of Systems Review Of Systems: See Below Constitutional: Denies: Fever, Chills HEENT: Denies: Vision Change Respiratory: Denies: Shortness of Breath GI/Abdominal: Denies: Nausea, Vomiting Neurological: Reports: Headache. Denies: Dizziness Psychiatric: Reports: Other (History of schizophrenia) - Physical Exam Exam: See Below Exam Limited By: No Limitations General Appearance: Alert, No Apparent Distress Eye Exam: Bilateral Eye: EOMI Head Exam: Atraumatic Neck: Supple Respiratory/Chest: No Respiratory Distress Neuro Exam (Abbreviated): Alert, Oriented, No Motor/Sensory Deficits, Other ( Ambulates without difficulty) Course - Vital Signs Last Recorded V/S: Last Vital Signs Temp 99.2 F 01/13/17 03:34 Pulse 107 H 01/13/17 03:34 Resp 20 01/13/17 03:34 BP 131/92 H 01/13/17 03:34 Pulse Ox 94 L 01/13/17 03:34 - Orders/Labs/Meds Meds: Medications Discontinued Medications Generic Name Dose Route Start Last Admin Trade Name Freq PRN Reason Stop Dose Admin Naproxen Confirm 01/13/17 03:52 01/13/17 03:58 Naprosyn Administered 01/13/17 03:53 Not Given Dose 500 mg .ROUTE .STK-MED ONE Naproxen 250 mg 01/13/17 03:54 01/13/17 03:59 Naprosyn PO 01/13/17 03:55 250 mg ONETIME ONE Administration Naproxen 250 mg 01/13/17 03:56 01/13/17 03:59 Naprosyn PO 01/13/17 03:57 250 mg ONETIME ONE Administration - Re-Assessments/Exams Free Text/Narrative Re-Assessment/Exam: 01/13/17 03:39 Patient was given a 500 mg by mouth dose of naproxen. Tried to explain to the patient that he needs to get his own naproxen so he doesn't have to come into the emergency room. Departure - Departure Time of Disposition: 04:03 Disposition: Home, Self-Care 01 Condition: Good Clinical Impression: Tension headache - Discharge Information Instructions: General Headache Without Cause, [id number] Referrals: Awais Powers MD [Primary Care Provider] - Forms: ED Department Discharge Care Plan Goals: Talk to your sister about getting your own supply of naproxen that you can take when you get a headache.
[2017-01-13] MEDS ORDERED: Naproxen 250 MG Tab ONE (03:52)
[2017-01-13] MEDS ORDERED: Naproxen 250 MG Tab PO ONE ×2 (03:54→03:56)
== END 2017-01-13 04:03 | disposition home or self-care (01) ==
LOC: JP.ED 03:11
DX: G44.209 Tension-type headache, unspecified, not intractable (principal); I10 Essential (primary) hypertension; F17.210 Nicotine dependence, cigarettes, uncomplicated; Z79.899 Other long term (current) drug therapy
CPT/HCPCS: 99284; A9270; 99282

== ENCOUNTER 2017-01-21 23:43 | Emergency (ER) | payer MEDICAID ==
[2017-01-22 00:42] VITALS: BP 113/67
[2017-01-22] MEDS ORDERED: Ondansetron 4 MG Tab.DIS PO ONE (00:54)
--- NOTE | 2017-01-22 01:10 | EDM.PDOC ---
ED HPI GENERAL MEDICAL PROBLEM - General Chief Complaint: General Stated Complaint: ILLNESS Time Seen by Provider: 01/22/17 00:46 Source of Information: Reports: Patient, RN Notes Reviewed History Limitations: Reports: No Limitations - History of Present Illness INITIAL COMMENTS - FREE TEXT/NARRATIVE: 00.45 Walked here Chief complaint Accidental ingestion of Bristol balm, nausea History of present illness 46-year-old male with history of schizoaffective disorder Had a container of Bristol balm and Librium, used a spoon to take a mouth full He was struck by the odd taste and nausea. He didn't realize it was an appointment, he thought he was having some candy No vomiting No lethargy or palpitations - Related Data Allergies Allergy/AdvReac Type Severity Reaction Status Date / Time No Known Allergies Allergy Verified 01/13/17 03:27 Home Meds: Home Meds Furosemide [Furosemide] 20 mg PO QAM 03/28/13 [History] Omeprazole [Omeprazole] 40 mg PO QAM 03/28/13 [History] Potassium Chloride [Klor-Con M20] 20 meq PO QAM 03/28/13 [History] Topiramate [Topamax] 50 mg PO BID 03/28/13 [History] Benztropine [Cogentin] 1 mg PO BID 09/23/13 [History] FLUoxetine HCl [Fluoxetine HCl] 40 mg PO DAILY 12/04/13 [History] Montelukast Sodium [Singulair] 10 mg PO DAILY 12/04/13 [History] ARIPiprazole [Abilify] 20 mg PO BEDTIME 01/03/16 [History] risperiDONE [risperiDONE] 6 mg PO BEDTIME 01/03/16 [History] Ibuprofen 600 mg PO ASDIRECTED 11/30/16 [History] Magnesium 250 mg PO DAILY 12/21/16 [History] Past Medical History HEENT History: Reports: Allergic Rhinitis Other HEENT History: MIGRAINES Cardiovascular History: Reports: Hypertension Respiratory History: Reports: Sleep Apnea Gastrointestinal History: Reports: GERD Genitourinary History: Reports: None Musculoskeletal History: Reports: Fracture, Other (See Below), Other (See Below) Other Musculoskeletal History: AC separation from previous injury in football 1988. Left shoulder fx with rotator cuff chip from a fall in Mid Dec 2015. Neurological History: Reports: Concussion, Headaches, Chronic, Migraines Psychiatric History: Reports: Anxiety, Depression, Schizophrenia Endocrine/Metabolic History: Reports: None Hematologic History: Reports: None Immunologic History: Reports: None Oncologic (Cancer) History: Reports: None Dermatologic History: Reports: None - Past Surgical History HEENT Surgical History: Reports: Oral Surgery GI Surgical History: Reports: Colonoscopy, EGD Social & Family History - Family History Family Medical History: Noncontributory - Tobacco Use Smoking Status *Q: Current Every Day Smoker Years of Tobacco use: 27 Packs/Tins Daily: 0.2 Used Tobacco, but Quit: No Month Tobacco Last Used: July Second Hand Smoke Exposure: No - Caffeine Use Caffeine Use: Reports: Coffee, Energy Drinks, Soda - Alcohol Use Days Per Week of Alcohol Use: 1 Number of Drinks Per Day: 1 Total Drinks Per Week: 1 - Recreational Drug Use Recreational Drug Use: No Drug Use in Last 12 Months: Yes Recreational Drug Type: Reports: Marijuana/Hashish, Methamphetamine Other Recreational Drug Type: Used marijuana 1 month ago Recreational Drug Use Frequency: Weekly - Living Situation & Occupation Living situation: Reports: Single Occupation: Disabled ED ROS GENERAL - Review of Systems Review Of Systems: See Below Constitutional: Denies: Fever, Decreased Appetite HEENT: Reports: No Symptoms Respiratory: Reports: No Symptoms Cardiovascular: Reports: No Symptoms GI/Abdominal: Reports: Nausea. Denies: Abdominal Pain, Diarrhea, Decreased Appetite, Vomiting Skin: Reports: No Symptoms Neurological: Reports: No Symptoms ED EXAM, GENERAL - Physical Exam Exam: See Below Exam Limited By: No Limitations General Appearance: Alert, Anxious, Mild Distress, Other (Vital signs normal) Eye Exam: Bilateral Eye: Normal Inspection Ears: Normal External Exam Nose: Normal Inspection Throat/Mouth: Normal Inspection, Normal Lips, Normal Oropharynx, Normal Voice Neck: Normal Inspection, Supple, Non-Tender Respiratory/Chest: No Respiratory Distress Cardiovascular: Normal Peripheral Pulses, Regular Rate, Rhythm GI/Abdominal: Normal Bowel Sounds, Non-Tender, No Mass Course - Vital Signs Last Recorded V/S: Last Vital Signs Temp 35.2 C 01/22/17 00:40 Pulse 97 01/22/17 00:40 Resp 16 01/22/17 00:40 BP 113/67 01/22/17 00:40 Pulse Ox 96 01/22/17 00:40 - Orders/Labs/Meds Meds: Medications Discontinued Medications Generic Name Dose Route Start Last Admin Trade Name Freq PRN Reason Stop Dose Admin Ondansetron HCl 4 mg 01/22/17 00:54 Zofran Odt PO 01/22/17 00:55 ONETIME ONE - Re-Assessments/Exams Free Text/Narrative Re-Assessment/Exam: 01/22/17 01:05 46-year-old male with accidental camphor/peppermint oil ointment ingestion Poison control notified The risk of seizure as long past, nausea may be expected Ondansetron 4 mg ODT by mouth Departure - Departure Time of Disposition: 01:07 Disposition: Home, Self-Care 01 Condition: Good Clinical Impression: Accidental ingestion of potentially harmful entity - Discharge Information Instructions: Poisoning Information, Adult Referrals: Awais Powers MD [Primary Care Provider] - Additional Instructions: The tiger balm ingestion can be harmful but the amount ingested was very small and was several hours ago At this point the only likely side effects are nausea Get rechecked if you have repeated episodes of vomiting.
== END 2017-01-22 01:30 | disposition home or self-care (01) ==
LOC: JP.ED 23:43
DX: T49.8X1A Poisoning by other topical agents, accidental (unintentional), initial encounter (principal); T42.4X1A Poisoning by benzodiazepines, accidental (unintentional), initial encounter; I10 Essential (primary) hypertension; K21.9 Gastro-esophageal reflux disease without esophagitis; F32.9 Major depressive disorder, single episode, unspecified; F17.210 Nicotine dependence, cigarettes, uncomplicated; Z79.899 Other long term (current) drug therapy
CPT/HCPCS: 99284; A9270

== ENCOUNTER 2017-01-26 13:34 | Emergency (ER) | payer MEDICAID ==
[2017-01-26 13:49] VITALS: BP 105/72
[2017-01-26] MEDS ORDERED: Ketorolac 60 MG/2 ML SDV IM ONE (15:55)
[2017-01-26] MEDS ORDERED: Cyclobenzaprine 10 MG Tab PO ONE (15:56)
--- NOTE | 2017-01-26 15:59 | EDM.PDOC ---
ED HPI GENERAL MEDICAL PROBLEM - General Chief Complaint: Lower Extremity Injury/Pain Stated Complaint: PAIN IN HIPS Time Seen by Provider: 01/26/17 14:20 Source of Information: Reports: Patient History Limitations: Reports: No Limitations - History of Present Illness INITIAL COMMENTS - FREE TEXT/NARRATIVE: T ARRIVED WITH PAIN IN BOTH HIPS AND TIGHTNESS ON THE RT SIDE OF HIS NECK Onset: Gradual Duration: Hour(s): Location: Reports: Neck, Other ( BOTH HIPS. hE DOES KNOW THAT HE HAS ARTHRITIS. ) - Related Data Allergies Allergy/AdvReac Type Severity Reaction Status Date / Time No Known Allergies Allergy Verified 01/13/17 03:27 Home Meds: Home Meds Furosemide [Furosemide] 20 mg PO QAM 03/28/13 [History] Omeprazole [Omeprazole] 40 mg PO QAM 03/28/13 [History] Potassium Chloride [Klor-Con M20] 20 meq PO QAM 03/28/13 [History] Topiramate [Topamax] 50 mg PO BID 03/28/13 [History] Benztropine [Cogentin] 1 mg PO BID 09/23/13 [History] FLUoxetine HCl [Fluoxetine HCl] 40 mg PO DAILY 12/04/13 [History] Montelukast Sodium [Singulair] 10 mg PO DAILY 12/04/13 [History] ARIPiprazole [Abilify] 20 mg PO BEDTIME 01/03/16 [History] risperiDONE [risperiDONE] 6 mg PO BEDTIME 01/03/16 [History] Magnesium 250 mg PO DAILY 12/21/16 [History] Past Medical History HEENT History: Reports: Allergic Rhinitis Other HEENT History: MIGRAINES Cardiovascular History: Reports: Hypertension Respiratory History: Reports: Sleep Apnea Gastrointestinal History: Reports: GERD Genitourinary History: Reports: None Musculoskeletal History: Reports: Fracture, Other (See Below), Other (See Below) Other Musculoskeletal History: AC separation from previous injury in football 1988. Left shoulder fx with rotator cuff chip from a fall in Mid Dec 2015. Neurological History: Reports: Concussion, Headaches, Chronic, Migraines Psychiatric History: Reports: Anxiety, Depression, Schizophrenia Endocrine/Metabolic History: Reports: None Hematologic History: Reports: None Immunologic History: Reports: None Oncologic (Cancer) History: Reports: None Dermatologic History: Reports: None - Past Surgical History Head Surgeries/Procedures: Reports: None HEENT Surgical History: Reports: Oral Surgery GI Surgical History: Reports: Colonoscopy, EGD Social & Family History - Family History Family Medical History: Noncontributory - Tobacco Use Smoking Status *Q: Current Every Day Smoker Years of Tobacco use: 25 Packs/Tins Daily: 0.5 Used Tobacco, but Quit: No Month Tobacco Last Used: July Second Hand Smoke Exposure: No - Caffeine Use Caffeine Use: Reports: Coffee, Energy Drinks, Soda - Alcohol Use Days Per Week of Alcohol Use: 1 Number of Drinks Per Day: 1 Total Drinks Per Week: 1 - Recreational Drug Use Recreational Drug Use: No Drug Use in Last 12 Months: Yes Recreational Drug Type: Reports: Marijuana/Hashish, Methamphetamine Other Recreational Drug Type: Used marijuana 1 month ago Recreational Drug Use Frequency: Weekly - Living Situation & Occupation Living situation: Reports: Single Occupation: Disabled Review of Systems - Review of Systems Review Of Systems: See Below Constitutional: Reports: No Symptoms Eyes: Reports: No Symptoms Ears: Reports: No Symptoms Nose: Reports: No Symptoms Mouth/Throat: Reports: No Symptoms Respiratory: Reports: No Symptoms Cardiovascular: Reports: No Symptoms GI/Abdominal: Reports: No Symptoms Musculoskeletal: Reports: Other (PT HAS PAIN IN BOTH HIPS AND HE HAS TIGHTNESS IN HIS RT NECK AREA. ) Neurological: Reports: No Symptoms ED EXAM, GENERAL - Physical Exam Exam: See Below Free Text/Narrative:: PT ARRIVED WITH PAIN IN BOTH HIPS. hE HAS MUSCLE TIGHTNESS IN THE RT SIDE OF HIS NECK. Exam Limited By: No Limitations General Appearance: Alert, Anxious, Moderate Distress Head: Atraumatic Neck: Other (PT HAS ALOT OF MUSCLE SPASM IN THE RT POST CERVICAL AREA. ) Respiratory/Chest: No Respiratory Distress Cardiovascular: Regular Rate, Rhythm Extremities: Other (PT IS TENDER OVER BOTH HIPS. hE HAS NOT HAD ANY FALL OR INJURY. ) Neurological: Alert, Oriented, Normal Cognition Course - Vital Signs Last Recorded V/S: Last Vital Signs Temp 37.2 C 01/26/17 13:54 Pulse 117 H 01/26/17 13:54 Resp 18 01/26/17 13:54 BP 105/72 01/26/17 13:54 Pulse Ox 95 01/26/17 13:54 - Orders/Labs/Meds Labs: Laboratory Tests 01/26/17 Range/Units 16:03 Sodium 138 L (140-148) mmol/L Potassium 4.1 (3.6-5.2) mmol/L Chloride 102 (100-108) mmol/L Carbon Dioxide 26 (21-32) mmol/L Anion Gap 14.1 H (5.0-14.0) mmol/L BUN 13 D (7-18) mg/dL Creatinine 1.2 (0.8-1.3) mg/dL Est Cr Clr Drug Dosing 78.58 mL/min Estimated GFR (MDRD) > 60 (>60) Glucose 116 H (74-106) mg/dL Calcium 8.7 (8.5-10.1) mg/dL Meds: Medications Discontinued Medications Generic Name Dose Route Start Last Admin Trade Name Freq PRN Reason Stop Dose Admin Cyclobenzaprine HCl 5 mg 01/26/17 15:56 01/26/17 16:07 Flexeril PO 01/26/17 15:57 5 mg ONETIME ONE Administration Ketorolac Tromethamine 60 mg 01/26/17 15:55 01/26/17 16:07 Toradol IM 01/26/17 15:56 60 mg ONETIME ONE Administration - Re-Assessments/Exams Free Text/Narrative Re-Assessment/Exam: 01/26/17 16:31 pT HAD A BMP WHICH SHOWED A CREATNINE OF 1.2 BUT HIS BUN WAS NORMAL. wILL USE NAPROSYN TWIC DAILY FOR 1 WEEK Departure - Departure Time of Disposition: 16:32 Disposition: Home, Self-Care 01 Condition: Fair Clinical Impression: Arthritis of both hips, Cervical paraspinal muscle spasm - Discharge Information Referrals: Awais Powers MD [Primary Care Provider] - Forms: ED Department Discharge Care Plan Goals: PUSH FLUIDS, MOIST HEAT TO RT POST CERVICAL AREA, FLEXERIL 10MG HS TO RELAX MUSCLE, NAPROSYN BID FOR 2 DAYS THEN ONCE DAILY FOR 1 WEEK.
== END 2017-01-26 16:39 | disposition home or self-care (01) ==
LOC: JP.ED 13:34
DX: M16.0 Bilateral primary osteoarthritis of hip (principal); M62.838 Other muscle spasm; I10 Essential (primary) hypertension; K21.9 Gastro-esophageal reflux disease without esophagitis; F17.210 Nicotine dependence, cigarettes, uncomplicated; Z79.899 Other long term (current) drug therapy
CPT/HCPCS: 36415; 80048; 96372; 99284; A9270; J1885

== ENCOUNTER 2017-04-03 15:19 | Emergency (ER) | payer MEDICAID ==
[2017-04-03 15:39] VITALS: BP 122/81
[2017-04-03] MEDS ORDERED: Promethazine 25 MG/ML SDV IM ONE (16:01)
--- NOTE | 2017-04-03 16:12 | EDM.PDOC ---
ED HPI GENERAL MEDICAL PROBLEM - General Chief Complaint: Gastrointestinal Problem Stated Complaint: NAUSEA Time Seen by Provider: 04/03/17 15:50 Source of Information: Reports: Patient, Old Records History Limitations: Reports: No Limitations - History of Present Illness INITIAL COMMENTS - FREE TEXT/NARRATIVE: 46 yo male frequent visitor to the ER(over 35 visits in the last 12 mos alone) presents with diarrhea and nausea. No fever. No bleeding. Has mild abdominal cramping. Sx's began late yesterday. Has not been to his doctor as he(doctor) is in [place] and he does not drive. Onset: Gradual Onset Date: 04/02/17 Duration: Hour(s):, Constant Location: Reports: Abdomen Quality: Reports: Other (mild cramping) Severity: Mild Improves with: Reports: None Worsens with: Reports: Eating Context: Reports: Other (unknown) Associated Symptoms: Reports: Loss of Appetite, Nausea/Vomiting (no vomiting). Denies: Cough, Fever/Chills, Shortness of Breath Treatments RD PROJECT MANAGER: Reports: Other (see below) (none) Abdomen Pain Score (Numeric/FACES): 7 - Related Data Allergies Allergy/AdvReac Type Severity Reaction Status Date / Time No Known Allergies Allergy Verified 04/03/17 15:53 Home Meds: Home Meds Furosemide [Furosemide] 20 mg PO QAM 03/28/13 [History] Omeprazole [Omeprazole] 40 mg PO QAM 03/28/13 [History] Potassium Chloride [Klor-Con M20] 20 meq PO QAM 03/28/13 [History] Topiramate [Topamax] 50 mg PO BID 03/28/13 [History] Benztropine [Cogentin] 1 mg PO BID 09/23/13 [History] FLUoxetine HCl [Fluoxetine HCl] 40 mg PO DAILY 12/04/13 [History] Montelukast Sodium [Singulair] 10 mg PO DAILY 12/04/13 [History] ARIPiprazole [Abilify] 20 mg PO BEDTIME 01/03/16 [History] risperiDONE [risperiDONE] 6 mg PO BEDTIME 01/03/16 [History] Magnesium 250 mg PO DAILY 12/21/16 [History] Promethazine [Phenadoz] 25 mg RECTAL Q6H PRN #7 supp 04/03/17 [Rx] Past Medical History HEENT History: Reports: Allergic Rhinitis Other HEENT History: MIGRAINES Cardiovascular History: Reports: Hypertension Respiratory History: Reports: Sleep Apnea Gastrointestinal History: Reports: GERD Genitourinary History: Reports: None Musculoskeletal History: Reports: Fracture, Other (See Below), Other (See Below) Other Musculoskeletal History: AC separation from previous injury in football 1988. Left shoulder fx with rotator cuff chip from a fall in Mid Dec 2015. Neurological History: Reports: Concussion, Headaches, Chronic, Migraines Psychiatric History: Reports: Anxiety, Depression, Schizophrenia Endocrine/Metabolic History: Reports: None Hematologic History: Reports: None Immunologic History: Reports: None Oncologic (Cancer) History: Reports: None Dermatologic History: Reports: None - Past Surgical History Head Surgeries/Procedures: Reports: None HEENT Surgical History: Reports: Oral Surgery GI Surgical History: Reports: Colonoscopy, EGD Social & Family History - Family History Family Medical History: Noncontributory - Tobacco Use Smoking Status *Q: Unknown Ever Smoked Years of Tobacco use: 25 Packs/Tins Daily: 0.5 Used Tobacco, but Quit: No Month Tobacco Last Used: July Second Hand Smoke Exposure: No - Caffeine Use Caffeine Use: Reports: Coffee, Energy Drinks, Soda - Alcohol Use Days Per Week of Alcohol Use: 1 Number of Drinks Per Day: 1 Total Drinks Per Week: 1 - Recreational Drug Use Recreational Drug Use: No Drug Use in Last 12 Months: Yes Recreational Drug Type: Reports: Marijuana/Hashish, Methamphetamine Other Recreational Drug Type: Used marijuana 1 month ago Recreational Drug Use Frequency: Weekly - Living Situation & Occupation Living situation: Reports: Single Occupation: Disabled ED ROS GENERAL - Review of Systems Review Of Systems: See Below Constitutional: Reports: No Symptoms HEENT: Reports: No Symptoms Respiratory: Reports: No Symptoms Cardiovascular: Reports: No Symptoms Endocrine: Reports: No Symptoms GI/Abdominal: Reports: Abdominal Pain (mild cramps), Diarrhea, Nausea. Denies: Black Stool, Bloody Stool, Constipation, Distension, Hematemesis, Hematochezia, Vomiting : Reports: No Symptoms Musculoskeletal: Reports: No Symptoms Skin: Reports: No Symptoms Neurological: Reports: No Symptoms ED EXAM, GI/ABD - Physical Exam Exam: See Below Exam Limited By: No Limitations General Appearance: Alert, WD/WN, No Apparent Distress Eyes: Bilateral: Normal Appearance, EOMI Ears: Normal External Exam, Normal Canal, Hearing Grossly Normal, Normal TMs Nose: Normal Inspection, Normal Mucosa, No Blood Throat/Mouth: Normal Inspection, Normal Lips, Normal Oropharynx, Normal Voice, No Airway Compromise. No: Normal Teeth Head: Atraumatic, Normocephalic Neck: Normal Inspection Respiratory/Chest: No Respiratory Distress, Lungs Clear, Normal Breath Sounds, No Accessory Muscle Use Cardiovascular: Regular Rate, Rhythm, No Edema GI/Abdominal Exam: Normal Bowel Sounds, Soft, Non-Tender, No Distention Back Exam: Normal Inspection. No: CVA Tenderness (R), CVA Tenderness (L) Extremities: Normal Inspection, Normal Range of Motion, Non-Tender Neurological: Alert, Oriented, CN II-XII Intact, Normal Cognition, No Motor/ Sensory Deficits Psychiatric: Normal Affect, Normal Mood Skin Exam: Warm, Dry, Intact, Normal Color, No Rash Lymphatic: No Adenopathy Course - Vital Signs Last Recorded V/S: Last Vital Signs Temp 35.3 C 04/03/17 15:52 Pulse 82 04/03/17 15:52 Resp 16 04/03/17 15:52 BP 122/81 04/03/17 15:52 Pulse Ox 99 04/03/17 15:52 - Orders/Labs/Meds Meds: Medications Discontinued Medications Generic Name Dose Route Start Last Admin Trade Name Freq PRN Reason Stop Dose Admin Promethazine HCl 50 mg 04/03/17 16:01 04/03/17 16:05 Phenergan IM 04/03/17 16:02 50 mg ONETIME ONE Administration Departure - Departure Time of Disposition: 16:12 Disposition: Home, Self-Care 01 Condition: Good Clinical Impression: Diarrhea, Nausea - Discharge Information Prescriptions: Promethazine [Phenadoz] 25 mg RECTAL Q6H PRN #7 supp PRN Reason: Nausea Referrals: Awais Powers MD [Primary Care Provider] - Forms: ED Department Discharge
== END 2017-04-03 16:12 | disposition home or self-care (01) ==
LOC: JP.ED 15:19
DX: R19.7 Diarrhea, unspecified (principal); R11.0 Nausea; I10 Essential (primary) hypertension; K21.9 Gastro-esophageal reflux disease without esophagitis; F20.9 Schizophrenia, unspecified; F32.9 Major depressive disorder, single episode, unspecified; Z79.899 Other long term (current) drug therapy; Z72.0 Tobacco use
CPT/HCPCS: 96372; 99283; 99284; J2550

== ENCOUNTER 2017-05-13 21:50 | Emergency (ER) | payer MEDICAID ==
[2017-05-13 22:06] VITALS: BP 109/71
[2017-05-13] MEDS ORDERED: Lactated Ringers 1,000 ML IV ONE (22:13)
[2017-05-13] MEDS ORDERED: Prochlorperazine 10 MG/2 ML SDV IVPUSH ONE (22:13)
[2017-05-13] MEDS ORDERED: diphenhydrAMINE 50 MG/ML SDV IVPUSH ONE (22:14)
[2017-05-13] MEDS ORDERED: Magnesium Sulfate/Water 2 GM in Premix Bag 1 BAG IV ONE (22:14)
--- NOTE | 2017-05-13 22:20 | EDM.PDOC ---
ED HPI GENERAL MEDICAL PROBLEM - General Chief Complaint: General Stated Complaint: migraine Time Seen by Provider: 05/13/17 22:05 Source of Information: Reports: Patient, Old Records, RN History Limitations: Reports: No Limitations - History of Present Illness INITIAL COMMENTS - FREE TEXT/NARRATIVE: 47 yo male presents with a migraine BAUER since yesterday. Has taken ibuprofen, Aleve, and acetaminophen without relief. Denies nausea. Says BAUER feels like BAUER's he's had in the past. No fever. No recent head trauma. Walked here a couple blocks from his home. Reports some numbness to the top of his head. 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: Acetaminophen, NSAIDS Headache Pain Score (Numeric/FACES): 9 - Related Data Allergies Allergy/AdvReac Type Severity Reaction Status Date / Time No Known Allergies Allergy Verified 05/13/17 21:58 Home Meds: Home Meds Furosemide 20 mg PO QAM 03/28/13 [History] Omeprazole 40 mg PO QAM 03/28/13 [History] Potassium Chloride [Klor-Con M20] 20 meq PO QAM 03/28/13 [History] Topiramate [Topamax] 50 mg PO BID 03/28/13 [History] Benztropine [Cogentin] 1 mg PO BID 09/23/13 [History] FLUoxetine HCl [Fluoxetine HCl] 40 mg PO DAILY 12/04/13 [History] Montelukast Sodium [Singulair] 10 mg PO DAILY 12/04/13 [History] ARIPiprazole [Abilify] 20 mg PO BEDTIME 01/03/16 [History] risperiDONE 6 mg PO BEDTIME 01/03/16 [History] Magnesium 250 mg PO DAILY 12/21/16 [History] Promethazine [Phenadoz] 25 mg RECTAL Q6H PRN #7 supp 04/03/17 [Rx] Past Medical History HEENT History: Reports: Allergic Rhinitis Other HEENT History: MIGRAINES Cardiovascular History: Reports: Hypertension Respiratory History: Reports: Sleep Apnea Gastrointestinal History: Reports: GERD Genitourinary History: Reports: None Musculoskeletal History: Reports: Fracture, Other (See Below), Other (See Below) Other Musculoskeletal History: AC separation from previous injury in football 1988. Left shoulder fx with rotator cuff chip from a fall in Mid Dec 2015. Neurological History: Reports: Concussion, Headaches, Chronic, Migraines Psychiatric History: Reports: Anxiety, Depression, Schizophrenia Endocrine/Metabolic History: Reports: None Hematologic History: Reports: None Immunologic History: Reports: None Oncologic (Cancer) History: Reports: None Dermatologic History: Reports: None - Past Surgical History Head Surgeries/Procedures: Reports: None HEENT Surgical History: Reports: Oral Surgery GI Surgical History: Reports: Colonoscopy, EGD Social & Family History - Family History Family Medical History: Noncontributory - Tobacco Use Smoking Status *Q: Current Every Day Smoker Years of Tobacco use: 30 Packs/Tins Daily: 0.7 Used Tobacco, but Quit: No Month/Year Tobacco Last Used: July Second Hand Smoke Exposure: No - Caffeine Use Caffeine Use: Reports: Coffee - Alcohol Use Days Per Week of Alcohol Use: 1 Number of Drinks Per Day: 1 Total Drinks Per Week: 1 - Recreational Drug Use Recreational Drug Use: Yes Drug Use in Last 12 Months: Yes Recreational Drug Type: Reports: Marijuana/Hashish Other Recreational Drug Type: Used marijuana 1 month ago Recreational Drug Use Frequency: Monthly - Living Situation & Occupation Living situation: Reports: Single Occupation: Disabled ED ROS GENERAL - Review of Systems Review Of Systems: See Below Constitutional: Reports: No Symptoms HEENT: Reports: No Symptoms Respiratory: Reports: No Symptoms Cardiovascular: Reports: No Symptoms Endocrine: Reports: No Symptoms GI/Abdominal: Reports: No Symptoms : Reports: No Symptoms Musculoskeletal: Reports: No Symptoms Skin: Reports: No Symptoms Neurological: Reports: Headache, Numbness (to top of scalp) Psychiatric: Reports: No Symptoms ED EXAM, GENERAL - Physical Exam Exam: See Below Exam Limited By: No Limitations General Appearance: Alert, WD/WN, No Apparent Distress Eye Exam: Bilateral Eye: Normal Inspection Ears: Normal External Exam, Normal Canal, Hearing Grossly Normal, Normal TMs Ear Exam: Bilateral Ear: Auricle Normal, Canal Normal, TM normal Nose: Normal Inspection, Normal Mucosa, No Blood Throat/Mouth: Normal Inspection, Normal Lips, Normal Oropharynx, Normal Voice, No Airway Compromise Head: Atraumatic, Normocephalic Neck: Normal Inspection, Supple, Non-Tender Respiratory/Chest: No Respiratory Distress, Lungs Clear, Normal Breath Sounds, No Accessory Muscle Use, Chest Non-Tender Cardiovascular: Regular Rate, Rhythm, No Edema GI/Abdominal: Normal Bowel Sounds, Soft, Non-Tender, No Distention Back Exam: Normal Inspection. No: CVA Tenderness (R), CVA Tenderness (L) Extremities: Normal Inspection, Normal Range of Motion, Non-Tender, No Pedal Edema Neurological: Alert, Oriented, CN II-XII Intact, Normal Cognition, No Motor/ Sensory Deficits Psychiatric: Normal Affect, Normal Mood Skin Exam: Warm, Dry, Intact, Normal Color, No Rash Lymphatic: No Adenopathy Course - Vital Signs Text/Narrative:: Feeling much better after treatment, will discharge. Last Recorded V/S: Last Vital Signs Temp 36.7 C 05/13/17 22:06 Pulse 85 05/13/17 22:06 Resp 18 05/13/17 22:06 BP 109/71 05/13/17 22:06 Pulse Ox 97 05/13/17 22:06 - Orders/Labs/Meds Meds: Medications Discontinued Medications Generic Name Dose Route Start Last Admin Trade Name Freq PRN Reason Stop Dose Admin Diphenhydramine HCl 25 mg 05/13/17 22:14 05/13/17 22:38 Benadryl IVPUSH 05/13/17 22:15 25 mg ONETIME ONE Administration Lactated Ringer's 1,000 mls @ 1,000 mls/hr 05/13/17 22:13 05/13/17 22:38 Ringers, Lactated IV 05/13/17 23:12 1,000 mls/hr BOLUS ONE Administration Magnesium Sulfate 2 gm/ Premix 50 mls @ 50 mls/hr 05/13/17 22:14 05/13/17 22: 38 IV 05/13/17 23:13 50 mls/hr ONETIME ONE Administration Prochlorperazine Edisylate 10 mg 05/13/17 22:13 05/13/17 22:38 Compazine IVPUSH 05/13/17 22:14 10 mg ONETIME ONE Administration Departure - Departure Time of Disposition: 23:40 Disposition: Home, Self-Care 01 Condition: Good Clinical Impression: Migraine Qualifiers: Migraine type: without aura Status migrainosus presence: without status migrainosus Intractability: not intractable Qualified Code(s): G43.009 - Migraine without aura, not intractable, without status migrainosus - Discharge Information Referrals: Awais Powers MD [Primary Care Provider] - Forms: ED Department Discharge
== END 2017-05-13 23:50 | disposition home or self-care (01) ==
LOC: JP.ED 21:50
DX: G43.009 Migraine without aura, not intractable, without status migrainosus (principal); I10 Essential (primary) hypertension; K21.9 Gastro-esophageal reflux disease without esophagitis; F41.9 Anxiety disorder, unspecified; F17.210 Nicotine dependence, cigarettes, uncomplicated; F32.9 Major depressive disorder, single episode, unspecified; Z79.899 Other long term (current) drug therapy
CPT/HCPCS: 96365; 96375; 99283; 99284; J0780; J1200; J3475; J7120

== ENCOUNTER 2017-05-15 13:48 | Emergency (ER) | payer MEDICAID ==
[2017-05-15 14:23] VITALS: BP 108/76
--- NOTE | 2017-05-15 14:57 | EDM.PDOC ---
ED HPI GENERAL MEDICAL PROBLEM - General Chief Complaint: General Stated Complaint: WANTS TO BE TESTED FOR HIV Time Seen by Provider: 05/15/17 14:53 Source of Information: Reports: Patient History Limitations: Reports: No Limitations - History of Present Illness INITIAL COMMENTS - FREE TEXT/NARRATIVE: pt arrived with ahistory of his girlfriend having hiv. They have been together for about 1.5 years. he was not with anyone for years prior to this girlfriend. 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 Onset: Other ( His girlfriend found out she had HIv about 1 week ago. ) Associated Symptoms: Reports: Other ( Pt does not have definite symptoms. ) Denies Pain Score (Numeric/FACES): 0 - Related Data Allergies Allergy/AdvReac Type Severity Reaction Status Date / Time No Known Allergies Allergy Verified 05/15/17 14:05 Home Meds: Home Meds Furosemide 20 mg PO QAM 03/28/13 [History] Omeprazole 40 mg PO QAM 03/28/13 [History] Potassium Chloride [Klor-Con M20] 20 meq PO QAM 03/28/13 [History] Topiramate [Topamax] 50 mg PO BID 03/28/13 [History] Benztropine [Cogentin] 1 mg PO BID 09/23/13 [History] FLUoxetine HCl [Fluoxetine HCl] 40 mg PO DAILY 12/04/13 [History] Montelukast Sodium [Singulair] 10 mg PO DAILY 12/04/13 [History] ARIPiprazole [Abilify] 20 mg PO BEDTIME 01/03/16 [History] risperiDONE 6 mg PO BEDTIME 01/03/16 [History] Magnesium 250 mg PO DAILY 12/21/16 [History] Promethazine [Phenadoz] 25 mg RECTAL Q6H PRN #7 supp 04/03/17 [Rx] Past Medical History HEENT History: Reports: Allergic Rhinitis Other HEENT History: MIGRAINES Cardiovascular History: Reports: Hypertension Respiratory History: Reports: Sleep Apnea Gastrointestinal History: Reports: GERD Genitourinary History: Reports: None Musculoskeletal History: Reports: Fracture, Other (See Below), Other (See Below) Other Musculoskeletal History: AC separation from previous injury in football 1988. Left shoulder fx with rotator cuff chip from a fall in Mid Dec 2015. Neurological History: Reports: Concussion, Headaches, Chronic, Migraines Psychiatric History: Reports: Anxiety, Depression, Schizophrenia Endocrine/Metabolic History: Reports: None Hematologic History: Reports: None Immunologic History: Reports: None Oncologic (Cancer) History: Reports: None Dermatologic History: Reports: None - Past Surgical History Head Surgeries/Procedures: Reports: None HEENT Surgical History: Reports: Oral Surgery GI Surgical History: Reports: Colonoscopy, EGD Social & Family History - Family History Family Medical History: Noncontributory - Tobacco Use Smoking Status *Q: Current Every Day Smoker Years of Tobacco use: 30 Packs/Tins Daily: 0.7 Used Tobacco, but Quit: No Month/Year Tobacco Last Used: July Second Hand Smoke Exposure: No - Caffeine Use Caffeine Use: Reports: Coffee - Alcohol Use Days Per Week of Alcohol Use: 1 Number of Drinks Per Day: 1 Total Drinks Per Week: 1 - Recreational Drug Use Recreational Drug Use: Yes Drug Use in Last 12 Months: Yes Recreational Drug Type: Reports: Marijuana/Hashish Other Recreational Drug Type: Used marijuana 1 month ago Recreational Drug Use Frequency: Monthly - Living Situation & Occupation Living situation: Reports: Single Occupation: Disabled ED ROS GENERAL - Review of Systems Review Of Systems: See Below Constitutional: Reports: No Symptoms HEENT: Reports: No Symptoms Respiratory: Reports: No Symptoms Cardiovascular: Reports: No Symptoms Endocrine: Reports: No Symptoms GI/Abdominal: Reports: No Symptoms : Reports: Other (pt has a girlfriend that has HIV. ) Skin: Reports: No Symptoms ED EXAM, GENERAL - Physical Exam Exam: See Below Free Text/Narrative:: pt is to be checked for hiv. His girl friend has a positive hiv. Exam Limited By: No Limitations General Appearance: Alert, Anxious, Other (pt does not feel ill) Ears: Normal TMs Nose: Normal Inspection Throat/Mouth: Normal Inspection Head: Atraumatic Neck: Normal Inspection Respiratory/Chest: No Respiratory Distress Cardiovascular: Regular Rate, Rhythm Course - Vital Signs Last Recorded V/S: Last Vital Signs Temp 36.4 C 05/15/17 14:10 Pulse 105 H 05/15/17 14:10 Resp 16 05/15/17 14:10 BP 108/76 05/15/17 14:10 Pulse Ox 97 05/15/17 14:10 - Orders/Labs/Meds Labs: Laboratory Tests 05/15/17 05/15/17 Range/Units 14:41 14:41 WBC 6.2 (4.5-11.0) K/uL RBC 4.79 (4.30-5.90) M/uL Hgb 14.5 (12.0-15.0) g/dL Hct 42.6 (40.0-54.0) % MCV 89 (80-98) fL MCH 30 (27-31) pg MCHC 34 (32-36) % Plt Count 338 (150-400) K/uL Neut % (Auto) 68 H (36-66) % Lymph % (Auto) 25 (24-44) % [place] % (Auto) 6 (2-6) % Eos % (Auto) 2 (2-4) % Baso % (Auto) 0 (0-1) % HIV-1 Ab Rapid Screen Non-reactive (NON-REACT.) - Re-Assessments/Exams Free Text/Narrative Re-Assessment/Exam: 05/15/17 15:25 hiv screen is neg, his wbc is good. He will be called with this result Departure - Departure Time of Disposition: 15:16 Disposition: Home, Self-Care 01 Condition: Fair Clinical Impression: HIV exposure - Discharge Information Instructions: HIV Infection and AIDS Referrals: Awais Powers MD [Primary Care Provider] - Forms: ED Department Discharge Care Plan Goals: will notify of the results of the hiv
== END 2017-05-15 15:23 | disposition home or self-care (01) ==
LOC: JP.ED 13:48
DX: Z20.6 Contact with and (suspected) exposure to human immunodeficiency virus [HIV] (principal); F17.210 Nicotine dependence, cigarettes, uncomplicated; I10 Essential (primary) hypertension; K21.9 Gastro-esophageal reflux disease without esophagitis; Z79.899 Other long term (current) drug therapy
CPT/HCPCS: 36415; 85025; 87449; 99284

== ENCOUNTER 2017-05-19 15:34 | Emergency (ER) | payer MEDICAID ==
--- NOTE | 2017-05-19 15:47 | PCM.SN ---
- Free Text/Narrative Note: 39-year-old gentleman presents to emergency department today wanting to know results of his HIV test. This was done on 05/15/2017 he is quite anxious as he continues to have intercourse with his girlfriend who is HIV-positive without protection he is anxious and nauseated. Assessment HIV test negative as of 4 days prior, Plan prescription written for Zofran 4 mg ODT 1 tablet every 8 hours when necessary, follow-up with primary care 3-5 days for further evaluation
== END 2017-05-19 15:48 | disposition home or self-care (01) ==
LOC: JP.ED 15:34
DX: Z71.2 Person consulting for explanation of examination or test findings (principal)
CPT/HCPCS: 99281

== ENCOUNTER 2017-05-19 20:58 | Emergency (ER) | payer MEDICAID ==
[2017-05-19 21:21] VITALS: BP 111/77
[2017-05-19] MEDS ORDERED: Ketorolac 60 MG/2 ML SDV IM ONE (22:53)
--- NOTE | 2017-05-19 23:14 | EDM.PDOC ---
ED HPI GENERAL MEDICAL PROBLEM - General Chief Complaint: Headache Stated Complaint: HEADACHE Time Seen by Provider: 05/19/17 23:09 Source of Information: Reports: Patient History Limitations: Reports: No Limitations - History of Present Illness INITIAL COMMENTS - FREE TEXT/NARRATIVE: pt is feeling very stresed, His girlfriend was found to be HIV positive. The pt was tested a few days ago and he was neg. He was instructed to definitely use protection with any sexual contact with his girlfriend. Onset: Today, Other (pt is feeling stressed and is having a severe headache. ) Duration: Hour(s): Location: Reports: Head Associated Symptoms: Reports: No Other Symptoms Head Pain Score (Numeric/FACES): 9 - Related Data Allergies Allergy/AdvReac Type Severity Reaction Status Date / Time No Known Allergies Allergy Verified 05/19/17 21:23 Home Meds: Home Meds Furosemide 20 mg PO QAM 03/28/13 [History] Omeprazole 40 mg PO QAM 03/28/13 [History] Potassium Chloride [Klor-Con M20] 20 meq PO QAM 03/28/13 [History] Topiramate [Topamax] 50 mg PO BID 03/28/13 [History] Benztropine [Cogentin] 1 mg PO BID 09/23/13 [History] FLUoxetine HCl [Fluoxetine HCl] 40 mg PO DAILY 12/04/13 [History] Montelukast Sodium [Singulair] 10 mg PO DAILY 12/04/13 [History] ARIPiprazole [Abilify] 20 mg PO BEDTIME 01/03/16 [History] risperiDONE 6 mg PO BEDTIME 01/03/16 [History] Magnesium 250 mg PO DAILY 12/21/16 [History] Promethazine [Phenadoz] 25 mg RECTAL Q6H PRN #7 supp 04/03/17 [Rx] Past Medical History HEENT History: Reports: Allergic Rhinitis Other HEENT History: MIGRAINES Cardiovascular History: Reports: Hypertension Respiratory History: Reports: Sleep Apnea Gastrointestinal History: Reports: GERD Genitourinary History: Reports: None Musculoskeletal History: Reports: Fracture, Other (See Below), Other (See Below) Other Musculoskeletal History: AC separation from previous injury in football 1988. Left shoulder fx with rotator cuff chip from a fall in Mid Dec 2015. Neurological History: Reports: Concussion, Headaches, Chronic, Migraines Psychiatric History: Reports: Anxiety, Depression, Schizophrenia Endocrine/Metabolic History: Reports: None Hematologic History: Reports: None Immunologic History: Reports: None Oncologic (Cancer) History: Reports: None Dermatologic History: Reports: None - Past Surgical History HEENT Surgical History: Reports: Oral Surgery GI Surgical History: Reports: Colonoscopy, EGD Social & Family History - Family History Family Medical History: Noncontributory - Tobacco Use Smoking Status *Q: Unknown Ever Smoked Years of Tobacco use: 30 Packs/Tins Daily: 0.7 Used Tobacco, but Quit: No Month/Year Tobacco Last Used: July Second Hand Smoke Exposure: No - Caffeine Use Caffeine Use: Reports: Coffee - Alcohol Use Days Per Week of Alcohol Use: 1 Number of Drinks Per Day: 1 Total Drinks Per Week: 1 - Recreational Drug Use Recreational Drug Use: Yes Drug Use in Last 12 Months: Yes Recreational Drug Type: Reports: Marijuana/Hashish Other Recreational Drug Type: Used marijuana 1 month ago Recreational Drug Use Frequency: Monthly - Living Situation & Occupation Living situation: Reports: Single Occupation: Disabled ED ROS GENERAL - Review of Systems Review Of Systems: See Below Constitutional: Reports: No Symptoms HEENT: Reports: No Symptoms Respiratory: Reports: No Symptoms Cardiovascular: Reports: No Symptoms Endocrine: Reports: No Symptoms GI/Abdominal: Reports: No Symptoms : Reports: No Symptoms Musculoskeletal: Reports: Neck Pain Skin: Reports: No Symptoms Neurological: Reports: Headache Psychiatric: Reports: Anxiety Hematologic/Lymphatic: Reports: No Symptoms - Physical Exam Exam: See Below Text/Narrative:: pt is having a severe headache. He has alot of stress going on at home. Exam Limited By: No Limitations General Appearance: Alert, Moderate Distress, Other (pupils are equal and reactive to lite. ) Ears: Normal TMs Nose: Normal Inspection Head Exam: Atraumatic Neck: Normal Inspection, Other (pt has muscle tenderness) Respiratory/Chest: No Respiratory Distress Cardiovascular: Regular Rate, Rhythm GI/Abdominal: Soft, Non-Tender (Male) Exam: Deferred Rectal (Males) Exam: Deferred Neuro Exam (Abbreviated): Alert, Oriented, Normal Cognition Back Exam: Normal Inspection Extremities: Normal Inspection Psychiatric: Anxious Course - Vital Signs Last Recorded V/S: Last Vital Signs Temp 35.8 C 05/19/17 21:12 Pulse 74 05/19/17 21:12 Resp 15 05/19/17 21:12 BP 111/77 05/19/17 21:12 Pulse Ox 99 05/19/17 21:12 - Orders/Labs/Meds Meds: Medications Discontinued Medications Generic Name Dose Route Start Last Admin Trade Name Stefany PRN Reason Stop Dose Admin Ketorolac Tromethamine 60 mg 05/19/17 22:53 05/19/17 22:57 Toradol IM 05/19/17 22:54 60 mg ONETIME ONE Administration - Re-Assessments/Exams Free Text/Narrative Re-Assessment/Exam: 05/19/17 23:16 pt was given torodol 60mg im Departure - Departure Time of Disposition: 23:17 Disposition: Home, Self-Care 01 Condition: Fair Clinical Impression: Tension headache - Discharge Information Instructions: Tension Headache, [id number], Safe Sex Referrals: Awais Powers MD [Primary Care Provider] - Forms: ED Department Discharge Care Plan Goals: tylenol and motrin for the headache, If pt has sexual contact with his girlfriend he needs to use protection
== END 2017-05-19 23:25 | disposition home or self-care (01) ==
LOC: JP.ED 20:58
DX: G44.209 Tension-type headache, unspecified, not intractable (principal); I10 Essential (primary) hypertension; K21.9 Gastro-esophageal reflux disease without esophagitis; Z79.899 Other long term (current) drug therapy
CPT/HCPCS: 96372; 99284; J1885; 99283

== ENCOUNTER 2017-05-29 02:10 | Emergency (ER) | payer MEDICAID ==
[2017-05-29 02:21] VITALS: BP 119/80
[2017-05-29] MEDS ORDERED: Ketorolac 60 MG/2 ML SDV IM ONE (02:34)
--- NOTE | 2017-05-29 02:40 | EDM.PDOC ---
ED HPI GENERAL MEDICAL PROBLEM - General Chief Complaint: Headache Stated Complaint: HEADACHE Time Seen by Provider: 05/29/17 02:30 Source of Information: Reports: Patient, Old Records History Limitations: Reports: No Limitations (47 oy) - History of Present Illness INITIAL COMMENTS - FREE TEXT/NARRATIVE: 47 yo male states that he awoke tonight with a BAUER. Came right here 3 blocks on foot for a shot of Toradol. Didn't take anything at home before coming in. BAUER like ones he's had in the past. No fever or head injury. No nausea. 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 (see below) (none) Headache Pain Score (Numeric/FACES): 8 - Related Data Allergies Allergy/AdvReac Type Severity Reaction Status Date / Time No Known Allergies Allergy Verified 05/19/17 21:23 Home Meds: Home Meds Furosemide 20 mg PO QAM 03/28/13 [History] Omeprazole 40 mg PO QAM 03/28/13 [History] Potassium Chloride [Klor-Con M20] 20 meq PO QAM 03/28/13 [History] Topiramate [Topamax] 50 mg PO BID 03/28/13 [History] Benztropine [Cogentin] 1 mg PO BID 09/23/13 [History] FLUoxetine HCl [Fluoxetine HCl] 40 mg PO DAILY 12/04/13 [History] Montelukast Sodium [Singulair] 10 mg PO DAILY 12/04/13 [History] ARIPiprazole [Abilify] 20 mg PO DAILY 01/03/16 [History] risperiDONE 6 mg PO BEDTIME 01/03/16 [History] Magnesium 250 mg PO DAILY 12/21/16 [History] Promethazine [Phenadoz] 25 mg RECTAL Q6H PRN #7 supp 04/03/17 [Rx] Past Medical History HEENT History: Reports: Allergic Rhinitis Other HEENT History: MIGRAINES Cardiovascular History: Reports: Hypertension Respiratory History: Reports: Sleep Apnea Gastrointestinal History: Reports: GERD Genitourinary History: Reports: None Musculoskeletal History: Reports: Fracture, Other (See Below), Other (See Below) Other Musculoskeletal History: AC separation from previous injury in football 1988. Left shoulder fx with rotator cuff chip from a fall in Mid Dec 2015. Neurological History: Reports: Concussion, Headaches, Chronic, Migraines Psychiatric History: Reports: Anxiety, Depression, Schizophrenia Endocrine/Metabolic History: Reports: None Hematologic History: Reports: None Immunologic History: Reports: None Oncologic (Cancer) History: Reports: None Dermatologic History: Reports: None - Past Surgical History Head Surgeries/Procedures: Reports: None HEENT Surgical History: Reports: Oral Surgery GI Surgical History: Reports: Colonoscopy, EGD Social & Family History - Family History Family Medical History: Noncontributory - Tobacco Use Smoking Status *Q: Current Every Day Smoker Years of Tobacco use: 30 Packs/Tins Daily: 0.5 Used Tobacco, but Quit: No Month/Year Tobacco Last Used: July Second Hand Smoke Exposure: No - Caffeine Use Caffeine Use: Reports: Coffee, Energy Drinks, Soda, Tea - Alcohol Use Days Per Week of Alcohol Use: 1 Number of Drinks Per Day: 1 Total Drinks Per Week: 1 - Recreational Drug Use Recreational Drug Use: Yes Drug Use in Last 12 Months: Yes Recreational Drug Type: Reports: Marijuana/Hashish Other Recreational Drug Type: Used marijuana 1 month ago Recreational Drug Use Frequency: Monthly - Living Situation & Occupation Living situation: Reports: Single Occupation: Disabled ED ROS GENERAL - Review of Systems Review Of Systems: See Below Constitutional: Reports: No Symptoms HEENT: Reports: No Symptoms Respiratory: Reports: No Symptoms Cardiovascular: Reports: No Symptoms GI/Abdominal: Reports: No Symptoms : Reports: No Symptoms Musculoskeletal: Reports: No Symptoms Skin: Reports: No Symptoms Neurological: Reports: Headache Psychiatric: Reports: No Symptoms - Physical Exam Exam: See Below Exam Limited By: No Limitations General Appearance: Alert, WD/WN, No Apparent Distress Eye Exam: Bilateral Eye: Normal Inspection Ears: Normal External Exam, Normal Canal, Hearing Grossly Normal, Normal TMs Nose: Normal Inspection, Normal Mucosa, No Blood Throat/Mouth: Normal Inspection, Normal Lips, Normal Oropharynx, Normal Voice, No Airway Compromise Head Exam: Atraumatic, Normocephalic Neck: Normal Inspection, Supple, Non-Tender Respiratory/Chest: No Respiratory Distress, Lungs Clear, Normal Breath Sounds, No Accessory Muscle Use Cardiovascular: Regular Rate, Rhythm, No Edema GI/Abdominal: Normal Bowel Sounds, Soft, Non-Tender Neuro Exam (Abbreviated): Alert, Oriented, CN II-XII Intact, Normal Cognition, No Motor/Sensory Deficits Back Exam: Normal Inspection Extremities: Normal Inspection, Normal Range of Motion, Non-Tender, No Pedal Edema Psychiatric: Normal Affect, Normal Mood Skin Exam: Warm, Dry, Intact, Normal Color, No Rash Course - Vital Signs Last Recorded V/S: Last Vital Signs Temp 35 C L 05/29/17 02:19 Pulse 83 05/29/17 02:19 Resp 16 05/29/17 02:19 BP 119/80 05/29/17 02:19 Pulse Ox 98 05/29/17 02:19 - Orders/Labs/Meds Meds: Medications Discontinued Medications Generic Name Dose Route Start Last Admin Trade Name Stefany PRN Reason Stop Dose Admin Ketorolac Tromethamine 60 mg 05/29/17 02:34 05/29/17 02:39 Toradol IM 05/29/17 02:35 60 mg ONETIME ONE Administration Departure - Departure Time of Disposition: 02:45 Disposition: Home, Self-Care 01 Condition: Good Clinical Impression: Headache Qualifiers: Headache type: unspecified Headache chronicity pattern: acute headache Intractability: not intractable Qualified Code(s): R51 - Headache - Discharge Information Referrals: Awais Powers MD [Primary Care Provider] - Forms: ED Department Discharge Additional Instructions: Follow up with your doctor as scheduled. Return as needed.
== END 2017-05-29 02:51 | disposition home or self-care (01) ==
LOC: JP.ED 02:10
DX: R51 Headache (principal); I10 Essential (primary) hypertension; F17.210 Nicotine dependence, cigarettes, uncomplicated; K21.9 Gastro-esophageal reflux disease without esophagitis; F41.9 Anxiety disorder, unspecified; F32.9 Major depressive disorder, single episode, unspecified; Z98.890 Other specified postprocedural states; Z79.899 Other long term (current) drug therapy
CPT/HCPCS: 96372; 99284; J1885; 99282

== ENCOUNTER 2017-06-16 01:29 | Emergency (ER) | payer MEDICAID ==
[2017-06-16 01:48] VITALS: BP 120/77
[2017-06-16] MEDS ORDERED: Acetaminophen 500 MG Tab PO ONE (01:59)
--- NOTE | 2017-06-16 02:04 | EDM.PDOC ---
ED HPI GENERAL MEDICAL PROBLEM - General Chief Complaint: Headache Stated Complaint: MIGRAINE Time Seen by Provider: 06/16/17 01:40 Source of Information: Reports: Patient (I did I don't pay attention) History Limitations: Reports: No Limitations - History of Present Illness INITIAL COMMENTS - FREE TEXT/NARRATIVE: 47-year-old male with chronic headaches, developed a headache last night at 6 PM. It's on the top of his head and throbbing, very similar to his chronic recurring migraine-type headache. He took ibuprofen and naproxen and didn't get relief so came into good something else. No nausea or vomiting, doesn't seem to have any photophobia, in fact he looks entirely comfortable. Onset: Sudden (Developed 8 hours ago) Associated Symptoms: Reports: No Other Symptoms headache Pain Score (Numeric/FACES): 8 - Related Data Allergies Allergy/AdvReac Type Severity Reaction Status Date / Time No Known Allergies Allergy Verified 05/19/17 21:23 Home Meds: Home Meds Furosemide 20 mg PO QAM 03/28/13 [History] Omeprazole 40 mg PO QAM 03/28/13 [History] Potassium Chloride [Klor-Con M20] 20 meq PO QAM 03/28/13 [History] Topiramate [Topamax] 50 mg PO BID 03/28/13 [History] Benztropine [Cogentin] 1 mg PO BID 09/23/13 [History] FLUoxetine HCl [Fluoxetine HCl] 40 mg PO DAILY 12/04/13 [History] Montelukast Sodium [Singulair] 10 mg PO DAILY 12/04/13 [History] ARIPiprazole [Abilify] 20 mg PO DAILY 01/03/16 [History] risperiDONE 6 mg PO BEDTIME 01/03/16 [History] Magnesium 250 mg PO DAILY 12/21/16 [History] Promethazine [Phenadoz] 25 mg RECTAL Q6H PRN #7 supp 04/03/17 [Rx] Past Medical History HEENT History: Reports: Allergic Rhinitis Other HEENT History: MIGRAINES Cardiovascular History: Reports: Hypertension Respiratory History: Reports: Sleep Apnea Gastrointestinal History: Reports: GERD Genitourinary History: Reports: None Musculoskeletal History: Reports: Fracture, Other (See Below), Other (See Below) Other Musculoskeletal History: AC separation from previous injury in football 1988. Left shoulder fx with rotator cuff chip from a fall in Mid Dec 2015. Neurological History: Reports: Concussion, Headaches, Chronic, Migraines Psychiatric History: Reports: Anxiety, Depression, Schizophrenia Endocrine/Metabolic History: Reports: None Hematologic History: Reports: None Immunologic History: Reports: None Oncologic (Cancer) History: Reports: None Dermatologic History: Reports: None - Past Surgical History Head Surgeries/Procedures: Reports: None HEENT Surgical History: Reports: Oral Surgery GI Surgical History: Reports: Colonoscopy, EGD Social & Family History - Family History Family Medical History: Noncontributory - Tobacco Use Smoking Status *Q: Current Every Day Smoker Years of Tobacco use: 32 Packs/Tins Daily: 0.5 Used Tobacco, but Quit: No Month/Year Tobacco Last Used: July Second Hand Smoke Exposure: No - Caffeine Use Caffeine Use: Reports: Coffee, Energy Drinks, Soda, Tea - Alcohol Use Days Per Week of Alcohol Use: 1 Number of Drinks Per Day: 1 Total Drinks Per Week: 1 - Recreational Drug Use Recreational Drug Use: Yes Drug Use in Last 12 Months: Yes Recreational Drug Type: Reports: Marijuana/Hashish Other Recreational Drug Type: Used marijuana 1 month ago Recreational Drug Use Frequency: Monthly - Living Situation & Occupation Living situation: Reports: Single Occupation: Disabled ED ROS GENERAL - Review of Systems Review Of Systems: See Below Constitutional: Denies: Fever, Chills Respiratory: Denies: Shortness of Breath GI/Abdominal: Denies: Abdominal Pain, Nausea, Vomiting Skin: Reports: No Symptoms Neurological: Reports: Headache - Physical Exam Exam: See Below Exam Limited By: No Limitations General Appearance: Alert, No Apparent Distress Eye Exam: Bilateral Eye: EOMI Head Exam: Atraumatic, Normocephalic Neck: Supple Respiratory/Chest: No Respiratory Distress Neuro Exam (Abbreviated): Alert, Oriented, Normal Gait Psychiatric: Normal Affect, Normal Mood Course - Vital Signs Last Recorded V/S: Last Vital Signs Temp 98.6 F 06/16/17 01:45 Pulse 88 06/16/17 01:45 Resp 18 06/16/17 01:45 BP 120/77 06/16/17 01:45 Pulse Ox 97 06/16/17 01:45 - Orders/Labs/Meds Meds: Medications Discontinued Medications Generic Name Dose Route Start Last Admin Trade Name Freq PRN Reason Stop Dose Admin Acetaminophen 1,000 mg 06/16/17 01:59 05/06/18 02:07 Tylenol Extra Strength PO 06/16/17 02:00 1,000 mg ONETIME ONE Administration - Re-Assessments/Exams Free Text/Narrative Re-Assessment/Exam: 06/16/17 02:02 Explained to the patient that Toradol probably is not a good choice tonight since he's taken a full dose of ibuprofen and naproxen the last 6 hours, but we could give him 1000 mg of acetaminophen orally. He was very appreciative of that and will go home and rest and recheck tomorrow if not improving. Departure - Departure Time of Disposition: 02:09 Disposition: Home, Self-Care 01 Condition: Good Clinical Impression: Headache Qualifiers: Headache type: unspecified Headache chronicity pattern: acute headache Intractability: not intractable Qualified Code(s): R51 - Headache - Discharge Information Instructions: Recurrent Migraine Headache, [id number] Referrals: Awais Powers MD [Primary Care Provider] - Forms: ED Department Discharge Care Plan Goals: Rest tonight, stay hydrated with water and increase activity as tolerated. If headache recurs repeat ibuprofen and naproxen but add Tylenol as well.
== END 2017-06-16 02:11 | disposition home or self-care (01) ==
LOC: JP.ED 01:29
DX: R51 Headache (principal); I10 Essential (primary) hypertension; F17.210 Nicotine dependence, cigarettes, uncomplicated; Z79.899 Other long term (current) drug therapy
CPT/HCPCS: 99282; 99284; A9270

== ENCOUNTER 2017-06-30 12:35 | Emergency (ER) | payer MEDICAID ==
[2017-06-30 13:58] VITALS: BP 134/88
[2017-06-30] MEDS ORDERED: Ketorolac 60 MG/2 ML SDV IM ONE (14:19)
--- NOTE | 2017-06-30 14:19 | EDM.PDOC ---
ED HPI GENERAL MEDICAL PROBLEM - General Chief Complaint: Headache Stated Complaint: HEADACHE Time Seen by Provider: 06/30/17 14:00 Source of Information: Reports: Patient History Limitations: Reports: No Limitations - History of Present Illness INITIAL COMMENTS - FREE TEXT/NARRATIVE: 39-year-old male with chronic headaches, he hasn't been in for almost 3 weeks days he has been maintaining recurring headaches with occasional naproxen or Tylenol. He started getting a headache this morning at about 7:00, took a Naprosyn at 9:00 and it's getting worse instead of better and he came in to get a shot of Toradol which she is he gives him a couple weeks relief. No nausea or vomiting, some photophobia. He actually looks uncomfortable which is unusual, he usually looks fine. Onset: Sudden Duration: Hour(s): (7 hours ago) Location: Reports: Head Quality: Reports: Pressure, Throbbing Severity: Moderate Associated Symptoms: Reports: No Other Symptoms - Related Data Allergies Allergy/AdvReac Type Severity Reaction Status Date / Time No Known Allergies Allergy Verified 06/30/17 13:53 Home Meds: Home Meds Furosemide 20 mg PO QAM 03/28/13 [History] Omeprazole 40 mg PO QAM 03/28/13 [History] Potassium Chloride [Klor-Con M20] 20 meq PO QAM 03/28/13 [History] Topiramate [Topamax] 50 mg PO BID 03/28/13 [History] Benztropine [Cogentin] 1 mg PO BID 09/23/13 [History] FLUoxetine HCl [Fluoxetine HCl] 40 mg PO DAILY 12/04/13 [History] Montelukast Sodium [Singulair] 10 mg PO DAILY 12/04/13 [History] ARIPiprazole [Abilify] 20 mg PO DAILY 01/03/16 [History] risperiDONE 6 mg PO BEDTIME 01/03/16 [History] Magnesium 250 mg PO DAILY 12/21/16 [History] Promethazine [Phenadoz] 25 mg RECTAL Q6H PRN #7 supp 04/03/17 [Rx] Past Medical History HEENT History: Reports: Allergic Rhinitis Other HEENT History: MIGRAINES Cardiovascular History: Reports: Hypertension Respiratory History: Reports: Sleep Apnea Gastrointestinal History: Reports: GERD Genitourinary History: Reports: None Musculoskeletal History: Reports: Fracture, Other (See Below), Other (See Below) Other Musculoskeletal History: AC separation from previous injury in football 1988. Left shoulder fx with rotator cuff chip from a fall in Mid Dec 2015. Neurological History: Reports: Concussion, Headaches, Chronic, Migraines Psychiatric History: Reports: Anxiety, Depression, Schizophrenia Endocrine/Metabolic History: Reports: None Hematologic History: Reports: None Immunologic History: Reports: None Oncologic (Cancer) History: Reports: None Dermatologic History: Reports: None - Past Surgical History Head Surgeries/Procedures: Reports: None HEENT Surgical History: Reports: Oral Surgery GI Surgical History: Reports: Colonoscopy, EGD Social & Family History - Family History Family Medical History: Noncontributory - Tobacco Use Smoking Status *Q: Current Every Day Smoker Years of Tobacco use: 20 Packs/Tins Daily: 0.5 - Caffeine Use Caffeine Use: Reports: Coffee, Energy Drinks, Soda, Tea - Living Situation & Occupation Living situation: Reports: Single Occupation: Disabled ED ROS GENERAL - Review of Systems Review Of Systems: See Below Constitutional: Denies: Fever, Chills Respiratory: Denies: Shortness of Breath Cardiovascular: Denies: Chest Pain GI/Abdominal: Denies: Abdominal Pain, Nausea, Vomiting Skin: Reports: No Symptoms Neurological: Reports: Headache Psychiatric: Reports: Other (Long-standing schizophrenia) - Physical Exam Exam: See Below Exam Limited By: No Limitations General Appearance: Alert, No Apparent Distress (Looks uncomfortable but not distressed) Eye Exam: Bilateral Eye: Normal Inspection Head Exam: Atraumatic Respiratory/Chest: No Respiratory Distress Neuro Exam (Abbreviated): Alert, Oriented, No Motor/Sensory Deficits Psychiatric: Normal Affect, Normal Mood Skin Exam: Warm, Dry Course - Vital Signs Last Recorded V/S: Last Vital Signs Temp 97.5 F 06/30/17 13:56 Pulse 77 06/30/17 13:56 Resp 14 06/30/17 13:56 BP 134/88 06/30/17 13:56 Pulse Ox - Orders/Labs/Meds Meds: Medications Discontinued Medications Generic Name Dose Route Start Last Admin Trade Name Freq PRN Reason Stop Dose Admin Ketorolac Tromethamine 60 mg 06/30/17 14:19 06/30/17 14:33 Toradol IM 06/30/17 14:20 60 mg ONETIME ONE Administration - Re-Assessments/Exams Free Text/Narrative Re-Assessment/Exam: 06/30/17 14:18 Patient was given an injection of Toradol, 60 mg IM. Told to continue his regular medications and get some rest. Departure - Departure Time of Disposition: 14:34 Disposition: Home, Self-Care 01 Condition: Good Clinical Impression: Headache Qualifiers: Headache type: unspecified Headache chronicity pattern: acute headache Intractability: not intractable Qualified Code(s): R51 - Headache - Discharge Information Instructions: Migraine Headache, [id number] Referrals: Awais Powers MD [Primary Care Provider] - Forms: ED Department Discharge Care Plan Goals: Rest today, continue your regular medications and recheck at the clinic this week if not improving satisfactorily.
== END 2017-06-30 14:35 | disposition home or self-care (01) ==
LOC: JP.ED 12:35
DX: R51 Headache (principal); I10 Essential (primary) hypertension; K21.9 Gastro-esophageal reflux disease without esophagitis; F41.9 Anxiety disorder, unspecified; F32.9 Major depressive disorder, single episode, unspecified; F17.210 Nicotine dependence, cigarettes, uncomplicated; Z79.899 Other long term (current) drug therapy
CPT/HCPCS: 96372; 99284; J1885

== ENCOUNTER 2017-07-07 22:10 | Emergency (ER) | payer MEDICAID ==
[2017-07-07 22:44] VITALS: BP 127/84
[2017-07-07] MEDS ORDERED: Sodium Chloride 0.9% 1,000 ML IV SCH (23:30)
--- NOTE | 2017-07-07 23:30 | EDM.PDOC ---
ED HPI GENERAL MEDICAL PROBLEM - General Stated Complaint: TOOK TOO MUCH METH Time Seen by Provider: 07/07/17 23:12 Source of Information: Reports: Patient History Limitations: Reports: Intoxication - History of Present Illness INITIAL COMMENTS - FREE TEXT/NARRATIVE: Polysubstance abuse: This is a 47-year-old male presents emergency room reports took too much meth. He reports prior to arrival he smoked meth, took Ativan 25 mg by mouth, drink 5 beers, and smoked marijuana. He is now drowsy but does awake to voice. He is here because he is concerned of overdose. Denies any injuries, falls prior to arrival at ER. Past history polysubstance abuse Onset: Today Duration: Constant Location: Reports: Generalized Improves with: Reports: None Worsens with: Reports: None Associated Symptoms: Reports: Other (Drowsy) Treatments FUR DYER: Reports: Other (see below) (Multiple drugs ingested or inhaled, meth, Ativan, beer, and marijuana.) - Related Data Allergies Allergy/AdvReac Type Severity Reaction Status Date / Time No Known Allergies Allergy Verified 07/07/17 23:56 Home Meds: Home Meds Furosemide 20 mg PO QAM 03/28/13 [History] Omeprazole 40 mg PO QAM 03/28/13 [History] Potassium Chloride [Klor-Con M20] 20 meq PO QAM 03/28/13 [History] Topiramate [Topamax] 50 mg PO BID 03/28/13 [History] Benztropine [Cogentin] 1 mg PO BID 09/23/13 [History] FLUoxetine HCl [Fluoxetine HCl] 40 mg PO DAILY 12/04/13 [History] Montelukast Sodium [Singulair] 10 mg PO DAILY 12/04/13 [History] ARIPiprazole [Abilify] 20 mg PO DAILY 01/03/16 [History] risperiDONE 6 mg PO BEDTIME 01/03/16 [History] Magnesium 250 mg PO DAILY 12/21/16 [History] Promethazine [Phenadoz] 25 mg RECTAL Q6H PRN #7 supp 04/03/17 [Rx] Past Medical History HEENT History: Reports: Allergic Rhinitis Other HEENT History: MIGRAINES Cardiovascular History: Reports: Hypertension Respiratory History: Reports: Sleep Apnea Gastrointestinal History: Reports: GERD Genitourinary History: Reports: None Musculoskeletal History: Reports: Fracture, Other (See Below), Other (See Below) Other Musculoskeletal History: AC separation from previous injury in football 1988. Left shoulder fx with rotator cuff chip from a fall in Mid Dec 2015. Neurological History: Reports: Concussion, Headaches, Chronic, Migraines Psychiatric History: Reports: Anxiety, Depression, Schizophrenia Endocrine/Metabolic History: Reports: None Hematologic History: Reports: None Immunologic History: Reports: None Oncologic (Cancer) History: Reports: None Dermatologic History: Reports: None - Past Surgical History Head Surgeries/Procedures: Reports: None HEENT Surgical History: Reports: Oral Surgery GI Surgical History: Reports: Colonoscopy, EGD Social & Family History - Family History Family Medical History: Noncontributory - Caffeine Use Caffeine Use: Reports: Coffee, Energy Drinks, Soda, Tea - Alcohol Use Alcohol Use History: Yes - Living Situation & Occupation Living situation: Reports: Single Occupation: Disabled ED ROS GENERAL - Review of Systems Review Of Systems: Unable To Obtain ED EXAM, GENERAL - Physical Exam Exam: See Below Exam Limited By: Altered Mental Status (Drowsy difficult to get history due to recent drug use.) General Appearance: No Apparent Distress, Lethargic Eye Exam: Bilateral Eye: Normal Inspection, PERRL Ears: Normal External Exam, Normal Canal, Hearing Grossly Normal, Normal TMs Nose: Normal Inspection, Normal Mucosa, No Blood Throat/Mouth: Normal Inspection, Normal Lips, Normal Teeth, Normal Gums, Normal Oropharynx, Normal Voice, No Airway Compromise Head: Atraumatic, Normocephalic Neck: Normal Inspection, Supple, Non-Tender, Full Range of Motion Respiratory/Chest: No Respiratory Distress, Lungs Clear, Normal Breath Sounds, No Accessory Muscle Use, Chest Non-Tender Cardiovascular: Regular Rate, Rhythm, No Murmur GI/Abdominal: Normal Bowel Sounds, Soft, Non-Tender, No Distention (Male) Exam: Deferred Rectal (Males) Exam: Deferred Back Exam: Normal Inspection, Full Range of Motion Extremities: Other (Few scrapes noted to hands otherwise do not appreciate any injection sites.) Neurological: Slow to Respond, Other (Drowsy) Psychiatric: Other (Drowsy) Skin Exam: Warm, Dry, Intact Lymphatic: No Adenopathy Course - Vital Signs Last Recorded V/S: Last Vital Signs Temp 36.8 C 07/08/17 00:09 Pulse 90 07/08/17 00:09 Resp 18 07/08/17 00:09 BP 127/84 07/08/17 00:09 Pulse Ox 96 07/08/17 00:09 - Orders/Labs/Meds Orders: Active Orders 24 hr Category Date Time Status DRUG SCREEN, URINE [URCHEM] Stat Lab 07/07/17 23:24 Ordered Sodium Chloride 0.9% [Normal Saline] 1,000 ml Med 07/07/17 23:30 Active IV ASDIRECTED Medication Orders Sodium Chloride (Normal Saline) 1,000 mls @ 999 mls/hr IV ASDIRECTED NICOLE Labs: Laboratory Tests 07/07/17 07/07/17 07/07/17 Range/Units 23:32 23:32 23:32 WBC 8.7 (4.5-11.0) K/uL RBC 4.20 L (4.30-5.90) M/uL Hgb 12.6 (12.0-15.0) g/dL Hct 37.7 L (40.0-54.0) % MCV 90 (80-98) fL MCH 30 (27-31) pg MCHC 33 (32-36) % Plt Count 263 (150-400) K/uL Neut % (Auto) 71 H (36-66) % Lymph % (Auto) 20 L (24-44) % Humphreys % (Auto) 7 H (2-6) % Eos % (Auto) 2 (2-4) % Baso % (Auto) 0 (0-1) % Sodium (140-148) mmol/L Potassium (3.6-5.2) mmol/L Chloride (100-108) mmol/L Carbon Dioxide (21-32) mmol/L Anion Gap (5.0-14.0) mmol/L BUN (7-18) mg/dL Creatinine (0.8-1.3) mg/dL Est Cr Clr Drug Dosing mL/min Estimated GFR (MDRD) (>60) Glucose (74-106) mg/dL Calcium (8.5-10.1) mg/dL Acetaminophen 0.0 L (10.0-30.0) ug/mL Ethyl Alcohol 11 mg/dL 07/07/17 Range/Units 23:32 WBC (4.5-11.0) K/uL RBC (4.30-5.90) M/uL Hgb (12.0-15.0) g/dL Hct (40.0-54.0) % MCV (80-98) fL MCH (27-31) pg MCHC (32-36) % Plt Count (150-400) K/uL Neut % (Auto) (36-66) % Lymph % (Auto) (24-44) % Humphreys % (Auto) (2-6) % Eos % (Auto) (2-4) % Baso % (Auto) (0-1) % Sodium 143 (140-148) mmol/L Potassium 3.5 L (3.6-5.2) mmol/L Chloride 107 (100-108) mmol/L Carbon Dioxide 25 (21-32) mmol/L Anion Gap 14.5 H (5.0-14.0) mmol/L BUN 14 (7-18) mg/dL Creatinine 1.1 (0.8-1.3) mg/dL Est Cr Clr Drug Dosing 90.14 mL/min Estimated GFR (MDRD) > 60 (>60) Glucose 92 (74-106) mg/dL Calcium 8.2 L (8.5-10.1) mg/dL Acetaminophen (10.0-30.0) ug/mL Ethyl Alcohol mg/dL Meds: Medications Generic Name Dose Route Start Last Admin Trade Name Freq PRN Reason Stop Dose Admin Sodium Chloride 1,000 mls @ 999 mls/hr 07/07/17 23:30 Normal Saline IV ASDIRECTED [facility] - Re-Assessments/Exams Free Text/Narrative Re-Assessment/Exam: 07/07/17 23:31 Patient was placed on oxygen, will do labs CBC, BMP, Tylenol level, alcohol level and urine drug screen. Medications; normal saline at 999 mL per hour Will await lab result.s 07/08/17 01:21 - continues to rest while in the ER, or oxygen levels 89-95% -Labs within normal limits, alcohol level XI, Tylenol level 0.0 -Urine drug screen was able to test, patient refuses urine test. -Discharge to home - 07/08/17 01:40 Mr. Lopez woke up and is ready for discharge to home He is ambulatory alert and orientated Departure - Departure Time of Disposition: 01:40 Disposition: Home, Self-Care 01 Condition: Good Clinical Impression: Methamphetamine use, Drug abuse - Discharge Information Instructions: Chemical Dependency Referrals: Awais Powers MD [Primary Care Provider] - Forms: ED Department Discharge Care Plan Goals: Polysubstance drug abuse -Labs within normal limits -Discussed with patient dangers of polysubstance drug abuse, advised to quit -Will discharge to home Follow-up with primary care - Problem List & Annotations (1) Methamphetamine use SNOMED Code(s): 213162154 Code(s): F15.10 - OTHER STIMULANT ABUSE, UNCOMPLICATED Status: Chronic Priority: High Current Visit: Yes (2) Drug abuse SNOMED Code(s): 22510936 Code(s): F19.10 - OTHER PSYCHOACTIVE SUBSTANCE ABUSE, UNCOMPLICATED Status : Acute Priority: High Current Visit: Yes - Problem List Review Problem List Initiated/Reviewed/Updated: Yes - My Orders Last 24 Hours: My Active Orders 07/07/17 23:24 DRUG SCREEN, URINE [URCHEM] Stat 07/07/17 23:30 Sodium Chloride 0.9% [Normal Saline] 1,000 ml IV ASDIRECTED - Assessment/Plan Last 24 Hours: My Active Orders 07/07/17 23:24 DRUG SCREEN, URINE [URCHEM] Stat 07/07/17 23:30 Sodium Chloride 0.9% [Normal Saline] 1,000 ml IV ASDIRECTED Plan: Polysubstance drug abuse -Labs within normal limits -Discussed with patient dangers of polysubstance drug abuse, advised to quit -Will discharge to home Follow-up with primary care
== END 2017-07-08 01:40 | disposition home or self-care (01) ==
LOC: JP.ED 22:10
DX: F15.10 Other stimulant abuse, uncomplicated (principal); I10 Essential (primary) hypertension; K21.9 Gastro-esophageal reflux disease without esophagitis; F41.9 Anxiety disorder, unspecified; F32.9 Major depressive disorder, single episode, unspecified; Z79.899 Other long term (current) drug therapy
CPT/HCPCS: 36415; 80048; 85025; 99283; G0480

== ENCOUNTER 2017-07-08 21:55 | Emergency (ER) | payer MEDICAID ==
[2017-07-08 22:22] VITALS: BP 111/68
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
[2017-07-08] MEDS ORDERED: Ketorolac 30 MG/ML SDV IM ONE (23:33)
--- NOTE | 2017-07-09 09:23 | CR ---
Heart size within normal limits. No focal consolidation. Pulmonary vasculature within normal limits.
== END 2017-07-09 01:03 | disposition home or self-care (01) ==
LOC: JP.ED 21:55
DX: S00.83XA Contusion of other part of head, initial encounter (principal); F17.210 Nicotine dependence, cigarettes, uncomplicated; I10 Essential (primary) hypertension; F41.9 Anxiety disorder, unspecified; F32.9 Major depressive disorder, single episode, unspecified; Y04.0XXA Assault by unarmed brawl or fight, initial encounter; Z79.899 Other long term (current) drug therapy
CPT/HCPCS: 70450; 70486; 71046; 72125; 96372; 99284; J1885

== ENCOUNTER 2017-07-19 19:32 | Emergency (ER) | payer MEDICAID ==
[2017-07-19 20:50] VITALS: BP 97/65
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
== END 2017-07-19 21:17 | disposition home or self-care (01) ==
LOC: JP.ED 19:32
DX: K21.9 Gastro-esophageal reflux disease without esophagitis (principal); S20.219D Contusion of unspecified front wall of thorax, subsequent encounter; Z79.899 Other long term (current) drug therapy; I10 Essential (primary) hypertension; F41.9 Anxiety disorder, unspecified; F32.9 Major depressive disorder, single episode, unspecified; F17.210 Nicotine dependence, cigarettes, uncomplicated; Y04.0XXD Assault by unarmed brawl or fight, subsequent encounter
CPT/HCPCS: 99282; 99283

== ENCOUNTER 2017-07-26 23:04 | Emergency (ER) | payer MEDICAID ==
[2017-07-26 23:43] VITALS: BP 116/76
[2017-07-27] MEDS ORDERED: Acetaminophen/HYDROcodone 325-5 MG Tab PO ONE (00:19)
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
== END 2017-07-27 01:16 | disposition home or self-care (01) ==
LOC: JP.ED 23:04
DX: R07.81 Pleurodynia (principal); I10 Essential (primary) hypertension; K21.9 Gastro-esophageal reflux disease without esophagitis; Z79.899 Other long term (current) drug therapy
CPT/HCPCS: 99285; A9270; 99282

== ENCOUNTER 2017-08-04 08:09 | Emergency (ER) | payer MEDICAID ==
[2017-08-04] MEDS ORDERED: Ondansetron 4 MG Tab.DIS PO ONE (08:33)
--- NOTE | 2017-08-04 08:33 | EDM.PDOC ---
ED HPI GENERAL MEDICAL PROBLEM - General Chief Complaint: Upper Extremity Injury/Pain Stated Complaint: NAUSEA/RIB PAIN Time Seen by Provider: 08/04/17 08:30 Source of Information: Reports: Patient History Limitations: Reports: No Limitations - History of Present Illness INITIAL COMMENTS - FREE TEXT/NARRATIVE: 47-year-old male was on his way to help some people move this morning when he became very nauseous so stopped in the emergency room. His chronic rib pain is getting better. He is not vomiting, he just feels his stomach is empty and nauseous and he feels sick. This is a very, complaint for him, he frequents the emergency room often. He has been in 37 times in the last year. Onset: Unknown/Unsure Severity: Mild Denies Pain Score (Numeric/FACES): 0 - Related Data Allergies Allergy/AdvReac Type Severity Reaction Status Date / Time No Known Allergies Allergy Verified 08/04/17 08:18 Home Meds: Home Meds Furosemide 20 mg PO QAM 03/28/13 [History] Omeprazole 40 mg PO QAM 03/28/13 [History] Potassium Chloride [Klor-Con M20] 20 meq PO QAM 03/28/13 [History] Topiramate [Topamax] 50 mg PO BID 03/28/13 [History] Benztropine [Cogentin] 1 mg PO BID 09/23/13 [History] FLUoxetine HCl [Fluoxetine HCl] 40 mg PO DAILY 12/04/13 [History] Montelukast Sodium [Singulair] 10 mg PO DAILY 12/04/13 [History] ARIPiprazole [Abilify] 20 mg PO DAILY 01/03/16 [History] risperiDONE 6 mg PO BEDTIME 01/03/16 [History] Magnesium 250 mg PO DAILY 12/21/16 [History] Promethazine [Phenadoz] 25 mg RECTAL Q6H PRN #7 supp 04/03/17 [Rx] Past Medical History HEENT History: Reports: Allergic Rhinitis Other HEENT History: MIGRAINES Cardiovascular History: Reports: Hypertension Respiratory History: Reports: Sleep Apnea Gastrointestinal History: Reports: GERD Genitourinary History: Reports: None Musculoskeletal History: Reports: Fracture, Other (See Below), Other (See Below) Other Musculoskeletal History: AC separation from previous injury in football 1988. Left shoulder fx with rotator cuff chip from a fall in Mid Dec 2015. Neurological History: Reports: Concussion, Headaches, Chronic, Migraines Psychiatric History: Reports: Anxiety, Depression, Schizophrenia Endocrine/Metabolic History: Reports: None Hematologic History: Reports: None Immunologic History: Reports: None Oncologic (Cancer) History: Reports: None Dermatologic History: Reports: None - Infectious Disease History Infectious Disease History: Reports: Chicken Pox - Past Surgical History Head Surgeries/Procedures: Reports: None HEENT Surgical History: Reports: Oral Surgery GI Surgical History: Reports: Colonoscopy, EGD Social & Family History - Family History Family Medical History: Noncontributory - Tobacco Use Smoking Status *Q: Current Every Day Smoker Years of Tobacco use: 23 Packs/Tins Daily: 0.5 Used Tobacco, but Quit: No Second Hand Smoke Exposure: Yes - Caffeine Use Caffeine Use: Reports: Coffee, Energy Drinks, Soda, Tea - Recreational Drug Use Recreational Drug Use: Yes Recreational Drug Type: Reports: Marijuana/Hashish Recreational Drug Use Frequency: Socially - Living Situation & Occupation Living situation: Reports: Single Occupation: Disabled Review of Systems - Review of Systems Review Of Systems: See Below Constitutional: Denies: Fever Respiratory: Denies: Shortness of Breath Cardiovascular: Denies: Chest Pain Musculoskeletal: Reports: Other (Rib pain is improving, almost healed) Skin: Denies: Bruising Neurological: Denies: Headache ED EXAM, GENERAL - Physical Exam Exam: See Below Exam Limited By: No Limitations General Appearance: Alert, No Apparent Distress Respiratory/Chest: No Respiratory Distress, Lungs Clear Cardiovascular: Regular Rate, Rhythm GI/Abdominal: Normal Bowel Sounds, Soft, Non-Tender Course - Vital Signs Last Recorded V/S: Last Vital Signs Temp 96.1 F 08/04/17 08:40 Pulse 84 08/04/17 08:40 Resp 16 08/04/17 08:40 BP 122/84 08/04/17 08:40 Pulse Ox 97 08/04/17 08:40 - Orders/Labs/Meds Meds: Medications Discontinued Medications Generic Name Dose Route Start Last Admin Trade Name Freq PRN Reason Stop Dose Admin Ondansetron HCl 4 mg 08/04/17 08:33 08/04/17 08:37 Zofran Odt PO 08/04/17 08:34 4 mg ONETIME ONE Administration - Re-Assessments/Exams Free Text/Narrative Re-Assessment/Exam: 08/04/17 08:32 Patient was given one sublingual Zofran and encouraged to continue his day with normal activity. He can return if worsening. Departure - Departure Time of Disposition: 09:08 Disposition: Home, Self-Care 01 Condition: Good Clinical Impression: Nausea alone - Discharge Information Instructions: Nausea, Adult Referrals: Awais Powers MD [Primary Care Provider] - Forms: ED Department Discharge Care Plan Goals: Continue your day as normal, increase diet and activity as tolerated.
[2017-08-04 08:39] VITALS: BP 122/84
== END 2017-08-04 08:50 | disposition home or self-care (01) ==
LOC: JP.ED 08:09
DX: R11.0 Nausea (principal); I10 Essential (primary) hypertension; F17.210 Nicotine dependence, cigarettes, uncomplicated; Z79.899 Other long term (current) drug therapy
CPT/HCPCS: 99282; 99283; A9270

== ENCOUNTER 2017-08-22 21:26 | Emergency (ER) | payer MEDICAID ==
[2017-08-22 23:05] VITALS: BP 122/89
--- NOTE | 2017-08-22 23:24 | EDM.PDOC ---
ED HPI GENERAL MEDICAL PROBLEM - General Chief Complaint: ENT Problem Stated Complaint: BIG BUG WENT DOWN THROAT Time Seen by Provider: 08/22/17 21:55 Source of Information: Reports: Patient History Limitations: Reports: No Limitations - History of Present Illness INITIAL COMMENTS - FREE TEXT/NARRATIVE: This man said that he walked out of a store and suddenly a big bug flew into his mouth and down his throat. It feels a little scratchy now. No other complaints. left side of head Pain Score (Numeric/FACES): 9 - Related Data Allergies Allergy/AdvReac Type Severity Reaction Status Date / Time No Known Allergies Allergy Verified 08/22/17 23:03 Home Meds: Home Meds Furosemide 20 mg PO QAM 03/28/13 [History] Omeprazole 40 mg PO QAM 03/28/13 [History] Potassium Chloride [Klor-Con M20] 20 meq PO QAM 03/28/13 [History] Topiramate [Topamax] 50 mg PO BID 03/28/13 [History] Benztropine [Cogentin] 1 mg PO BID 09/23/13 [History] FLUoxetine HCl [Fluoxetine HCl] 40 mg PO DAILY 12/04/13 [History] Montelukast Sodium [Singulair] 10 mg PO DAILY 12/04/13 [History] ARIPiprazole [Abilify] 20 mg PO DAILY 01/03/16 [History] risperiDONE 6 mg PO BEDTIME 01/03/16 [History] Magnesium 250 mg PO DAILY 12/21/16 [History] Promethazine [Phenadoz] 25 mg RECTAL Q6H PRN #7 supp 04/03/17 [Rx] Past Medical History HEENT History: Reports: Allergic Rhinitis Other HEENT History: MIGRAINES Cardiovascular History: Reports: Hypertension Respiratory History: Reports: Sleep Apnea Gastrointestinal History: Reports: GERD Genitourinary History: Reports: None Musculoskeletal History: Reports: Fracture, Other (See Below), Other (See Below) Other Musculoskeletal History: AC separation from previous injury in football 1988. Left shoulder fx with rotator cuff chip from a fall in Mid Dec 2015. Neurological History: Reports: Concussion, Headaches, Chronic, Migraines Psychiatric History: Reports: Anxiety, Depression, Schizophrenia Endocrine/Metabolic History: Reports: None Hematologic History: Reports: None Immunologic History: Reports: None Oncologic (Cancer) History: Reports: None Dermatologic History: Reports: None - Infectious Disease History Infectious Disease History: Reports: Chicken Pox - Past Surgical History HEENT Surgical History: Reports: Oral Surgery GI Surgical History: Reports: Colonoscopy, EGD Social & Family History - Family History Family Medical History: Noncontributory - Tobacco Use Smoking Status *Q: Current Every Day Smoker Years of Tobacco use: 20 Packs/Tins Daily: 0.5 - Caffeine Use Caffeine Use: Reports: Coffee, Energy Drinks, Soda, Tea - Recreational Drug Use Recreational Drug Use: No - Living Situation & Occupation Living situation: Reports: Single Occupation: Disabled ED ROS ENT - Review of Systems Review Of Systems: ROS reveals no pertinent complaints other than HPI. ED EXAM, ENT - Physical Exam Exam: See Below Exam Limited By: No Limitations General Appearance: Alert, WD/WN, No Apparent Distress Mouth/Throat: Normal Oropharynx, Other (missing many teeth). No: Hoarse Voice Course - Vital Signs Last Recorded V/S: Last Vital Signs Temp 36.1 C 08/22/17 23:08 Pulse 92 08/22/17 23:08 Resp 20 08/22/17 23:08 BP 122/89 08/22/17 23:08 Pulse Ox 100 08/22/17 23:08 Departure - Departure Time of Disposition: 23:22 Disposition: Home, Self-Care 01 Condition: Fair Clinical Impression: History of foreign body ingestion - Discharge Information Referrals: Awais Powers MD [Primary Care Provider] - Additional Instructions: This should not be a problem. Some people in other cultures actually eat bugs so they must be nutritious.
== END 2017-08-22 23:30 | disposition home or self-care (01) ==
LOC: JP.ED 21:26
DX: T18.9XXA Foreign body of alimentary tract, part unspecified, initial encounter (principal); F17.210 Nicotine dependence, cigarettes, uncomplicated; I10 Essential (primary) hypertension; K21.9 Gastro-esophageal reflux disease without esophagitis; Z79.899 Other long term (current) drug therapy
CPT/HCPCS: 99283

== ENCOUNTER 2017-09-03 13:03 | Emergency (ER) | payer MEDICAID ==
[2017-09-03 13:14] VITALS: BP 109/70
--- NOTE | 2017-09-03 14:29 | EDM.PDOC ---
ED HPI GENERAL MEDICAL PROBLEM - General Chief Complaint: Gastrointestinal Problem Stated Complaint: via [place] Time Seen by Provider: 09/03/17 14:00 Source of Information: Reports: Patient, EMS History Limitations: Reports: No Limitations - History of Present Illness INITIAL COMMENTS - FREE TEXT/NARRATIVE: 47-year-old male brought in by EMS after several episodes of nausea and vomiting. He was seen in the clinic this morning for vomiting, he is very anxious because he thought he swallowed a "spider" a few days ago and has been feeling sick since then. No significant diarrhea. He was checked over, given some Zofran and reassured but after he went home he vomited 2 more times so called the ambulance. He is not having any significant pain or shortness of breath. Onset: Gradual Duration: Day(s): (over the last 2-3 days) Severity: Mild Generalized Pain Score (Numeric/FACES): 7 - Related Data Allergies Allergy/AdvReac Type Severity Reaction Status Date / Time No Known Allergies Allergy Verified 09/03/17 13:12 Home Meds: Home Meds Furosemide 20 mg PO QAM 03/28/13 [History] Omeprazole 40 mg PO QAM 03/28/13 [History] Potassium Chloride [Klor-Con M20] 20 meq PO QAM 03/28/13 [History] Topiramate [Topamax] 50 mg PO BID 03/28/13 [History] Benztropine [Cogentin] 1 mg PO BID 09/23/13 [History] FLUoxetine HCl [Fluoxetine HCl] 40 mg PO DAILY 12/04/13 [History] Montelukast Sodium [Singulair] 10 mg PO DAILY 12/04/13 [History] ARIPiprazole [Abilify] 20 mg PO DAILY 01/03/16 [History] risperiDONE 6 mg PO BEDTIME 01/03/16 [History] Magnesium 250 mg PO DAILY 12/21/16 [History] Promethazine [Phenadoz] 25 mg RECTAL Q6H PRN #7 supp 04/03/17 [Rx] Past Medical History HEENT History: Reports: Allergic Rhinitis Other HEENT History: MIGRAINES Cardiovascular History: Reports: Hypertension Respiratory History: Reports: Sleep Apnea Gastrointestinal History: Reports: GERD Genitourinary History: Reports: None Musculoskeletal History: Reports: Fracture, Other (See Below), Other (See Below) Other Musculoskeletal History: AC separation from previous injury in football 1988. Left shoulder fx with rotator cuff chip from a fall in Mid Dec 2015. Neurological History: Reports: Concussion, Headaches, Chronic, Migraines Psychiatric History: Reports: Anxiety, Depression, Schizophrenia Endocrine/Metabolic History: Reports: None Hematologic History: Reports: None Immunologic History: Reports: None Oncologic (Cancer) History: Reports: None Dermatologic History: Reports: None - Infectious Disease History Infectious Disease History: Reports: Chicken Pox - Past Surgical History Head Surgeries/Procedures: Reports: None HEENT Surgical History: Reports: Oral Surgery Cardiovascular Surgical History: Reports: None Respiratory Surgical History: Reports: None GI Surgical History: Reports: Colonoscopy, EGD Neurological Surgical History: Reports: None Musculoskeletal Surgical History: Reports: None Dermatological Surgical History: Reports: None Social & Family History - Family History Family Medical History: Noncontributory - Tobacco Use Smoking Status *Q: Current Every Day Smoker Years of Tobacco use: 24 Packs/Tins Daily: 0.5 Used Tobacco, but Quit: No Second Hand Smoke Exposure: No - Caffeine Use Caffeine Use: Reports: Coffee, Energy Drinks, Soda, Tea - Alcohol Use Days Per Week of Alcohol Use: 0 - Recreational Drug Use Recreational Drug Use: Yes Drug Use in Last 12 Months: Yes Recreational Drug Type: Reports: Marijuana/Hashish Recreational Drug Use Frequency: Socially - Living Situation & Occupation Living situation: Reports: Single Occupation: Disabled ED ROS GENERAL - Review of Systems Review Of Systems: See Below Constitutional: Reports: Malaise. Denies: Fever, Chills Respiratory: Denies: Shortness of Breath GI/Abdominal: Reports: Diarrhea, Nausea, Vomiting. Denies: Abdominal Pain Musculoskeletal: Reports: Back Pain Skin: Reports: No Symptoms Neurological: Reports: No Symptoms Psychiatric: Reports: Anxiety ED EXAM, GENERAL - Physical Exam Exam: See Below Exam Limited By: No Limitations General Appearance: Alert, No Apparent Distress Eye Exam: Bilateral Eye: Normal Inspection Respiratory/Chest: No Respiratory Distress, Lungs Clear GI/Abdominal: Normal Bowel Sounds, Soft Neurological: Alert, Oriented Psychiatric: Anxious Skin Exam: Warm, Dry Course - Vital Signs Last Recorded V/S: Last Vital Signs Temp 95.8 F 09/03/17 13:11 Pulse 82 09/03/17 13:11 Resp 14 09/03/17 13:11 BP 109/70 09/03/17 13:11 Pulse Ox 96 09/03/17 13:11 - Re-Assessments/Exams Free Text/Narrative Re-Assessment/Exam: 09/03/17 15:19 When I went in to examine the patient he was sleeping soundly, he was observed for an hour and a half in the emergency room and had no emesis or apparent symptoms. His examination when he awoke was negative and he felt well enough to go home. I reassured him that a spider that he may have swallowed 2 days ago has nothing to do with his current symptoms. Departure - Departure Time of Disposition: 15:32 Disposition: Home, Self-Care 01 Condition: Good Clinical Impression: Gastroenteritis - Discharge Information Instructions: Nausea and Vomiting, Adult, [id number] Referrals: PCP,None [Primary Care Provider] - Forms: ED Department Discharge Care Plan Goals: Just clear liquids today, increase your diet as tolerated and recheck in 2-3 days if not improving satisfactorily.
== END 2017-09-03 15:30 | disposition home or self-care (01) ==
LOC: JP.ED 13:03
DX: K52.9 Noninfective gastroenteritis and colitis, unspecified (principal); F17.210 Nicotine dependence, cigarettes, uncomplicated; I10 Essential (primary) hypertension; K21.9 Gastro-esophageal reflux disease without esophagitis; Z79.899 Other long term (current) drug therapy
CPT/HCPCS: 99284

== ENCOUNTER 2017-09-24 03:03 | Emergency (ER) | payer MEDICAID ==
[2017-09-24] MEDS ORDERED: Famotidine 20 MG Tab ONE (03:29)
[2017-09-24] MEDS ORDERED: Ketorolac 60 MG/2 ML SDV ONE (03:29)
[2017-09-24 05:15] VITALS: BP 138/84
[2017-09-24] MEDS ORDERED: Ketorolac 60 MG/2 ML SDV IM ONE (05:45)
[2017-09-24] MEDS ORDERED: Famotidine 20 MG Tab PO ONE (05:45)
== END 2017-09-24 03:40 | disposition home or self-care (01) ==
LOC: JP.ED 03:03
DX: R51 Headache (principal)
CPT/HCPCS: 96372; 99284; A9270; J1885

== ENCOUNTER 2017-10-25 07:24 | Emergency (ER) | payer MEDICAID ==
[2017-10-25 07:37] VITALS: BP 108/66
[2017-10-25] MEDS ORDERED: Ondansetron 4 MG/2 ML SDV IM ONE (08:03)
[2017-10-25] MEDS ORDERED: Famotidine 20 MG Tab PO ONE (08:04)
--- NOTE | 2017-10-25 08:09 | EDM.PDOC ---
ED HPI GENERAL MEDICAL PROBLEM - General Chief Complaint: Gastrointestinal Problem Stated Complaint: NAUSEOUS Time Seen by Provider: 10/25/17 08:05 Source of Information: Reports: Patient History Limitations: Reports: No Limitations - History of Present Illness INITIAL COMMENTS - FREE TEXT/NARRATIVE: pt woke up this am and felt nauseated. He did vomit once. He does not admit to any pain. Onset: Today, Other ( He thought he was hungrey and he ate a sandwich with mustard on it. He thinks that is what made him sick. ) Duration: Hour(s):, Getting Worse Location: Reports: Abdomen Quality: Reports: Other (pt is not having pain) Associated Symptoms: Reports: Nausea/Vomiting - Related Data Allergies Allergy/AdvReac Type Severity Reaction Status Date / Time No Known Allergies Allergy Verified 10/25/17 07:31 Home Meds: Home Meds Omeprazole 40 mg PO QAM 03/28/13 [History] Potassium Chloride [Klor-Con M20] 20 meq PO QAM 03/28/13 [History] Topiramate [Topamax] 50 mg PO BID 03/28/13 [History] Benztropine [Cogentin] 1 mg PO BID 09/23/13 [History] FLUoxetine HCl [Fluoxetine HCl] 40 mg PO DAILY 12/04/13 [History] Montelukast Sodium [Singulair] 10 mg PO DAILY 12/04/13 [History] ARIPiprazole [Abilify] 20 mg PO DAILY 01/03/16 [History] risperiDONE 6 mg PO BEDTIME 01/03/16 [History] Magnesium 250 mg PO DAILY 12/21/16 [History] Past Medical History HEENT History: Reports: Allergic Rhinitis Other HEENT History: MIGRAINES Cardiovascular History: Reports: Hypertension Respiratory History: Reports: Sleep Apnea Gastrointestinal History: Reports: GERD Genitourinary History: Reports: None Musculoskeletal History: Reports: Fracture, Other (See Below), Other (See Below) Other Musculoskeletal History: AC separation from previous injury in football 1988. Left shoulder fx with rotator cuff chip from a fall in Mid Dec 2015. Neurological History: Reports: Concussion, Headaches, Chronic, Migraines Psychiatric History: Reports: Anxiety, Autism, Depression, Schizophrenia Endocrine/Metabolic History: Reports: None Hematologic History: Reports: None Immunologic History: Reports: None Oncologic (Cancer) History: Reports: None Dermatologic History: Reports: None - Infectious Disease History Infectious Disease History: Reports: Chicken Pox - Past Surgical History Head Surgeries/Procedures: Reports: None HEENT Surgical History: Reports: Oral Surgery Cardiovascular Surgical History: Reports: None Respiratory Surgical History: Reports: None GI Surgical History: Reports: Colonoscopy, EGD Neurological Surgical History: Reports: None Musculoskeletal Surgical History: Reports: None Dermatological Surgical History: Reports: None Social & Family History - Family History Family Medical History: Noncontributory - Tobacco Use Smoking Status *Q: Current Every Day Smoker Years of Tobacco use: 25 Packs/Tins Daily: 0.5 - Caffeine Use Caffeine Use: Reports: Coffee Caffeine Use Comment: 3 POTS OF COFFEE A DAY - Recreational Drug Use Recreational Drug Type: Reports: Methamphetamine - Living Situation & Occupation Living situation: Reports: Single Occupation: Disabled ED ROS GENERAL - Review of Systems Review Of Systems: See Below Constitutional: Reports: Decreased Appetite HEENT: Reports: No Symptoms Respiratory: Reports: No Symptoms Cardiovascular: Reports: No Symptoms Endocrine: Reports: No Symptoms GI/Abdominal: Reports: Nausea, Vomiting, Other (pt is not having pain) Musculoskeletal: Reports: No Symptoms Skin: Reports: No Symptoms ED EXAM, GI/ABD - Physical Exam Exam: See Below Text/Narrative:: pt states he woke up this am with nausea. He did not eat real regular last nite. Exam Limited By: No Limitations General Appearance: Alert Ears: Normal TMs Nose: Normal Inspection Throat/Mouth: Normal Inspection Head: Atraumatic Neck: Normal Inspection Cardiovascular: Regular Rate, Rhythm GI/Abdominal Exam: Soft, Non-Tender (Male) Exam: Deferred Rectal (Males) Exam: Deferred Back Exam: Normal Inspection Extremities: Normal Inspection Neurological: Alert, Oriented, Normal Cognition Psychiatric: Normal Affect Course - Vital Signs Last Recorded V/S: Last Vital Signs Temp 35.8 C 10/25/17 07:36 Pulse 100 10/25/17 07:36 Resp 16 10/25/17 07:36 BP 108/66 10/25/17 07:36 Pulse Ox 97 10/25/17 07:36 - Orders/Labs/Meds Meds: Medications Discontinued Medications Generic Name Dose Route Start Last Admin Trade Name Freq PRN Reason Stop Dose Admin Famotidine 20 mg 10/25/17 08:04 10/25/17 08:12 Pepcid PO 10/25/17 08:05 20 mg ONETIME ONE Administration Ondansetron HCl 4 mg 10/25/17 08:03 10/25/17 08:12 Zofran IM 10/25/17 08:04 4 mg ONETIME ONE Administration - Re-Assessments/Exams Free Text/Narrative Re-Assessment/Exam: 10/25/17 08:10 pt was given zoforan 4 mg im and pepcid 20mg po. 10/25/17 08:25 pt states his nausea is better. Departure - Departure Time of Disposition: 08:25 Disposition: Home, Self-Care 01 Condition: Fair Clinical Impression: Nausea - Discharge Information Referrals: Awais Powers MD [Primary Care Provider] - Forms: ED Department Discharge Care Plan Goals: rtc if problems.
== END 2017-10-25 08:32 | disposition home or self-care (01) ==
LOC: JP.ED 07:24
DX: R11.0 Nausea (principal); J30.9 Allergic rhinitis, unspecified; G43.909 Migraine, unspecified, not intractable, without status migrainosus; I10 Essential (primary) hypertension; G47.30 Sleep apnea, unspecified; K21.9 Gastro-esophageal reflux disease without esophagitis; F41.9 Anxiety disorder, unspecified; F84.0 Autistic disorder; F32.9 Major depressive disorder, single episode, unspecified; F20.9 Schizophrenia, unspecified; F17.200 Nicotine dependence, unspecified, uncomplicated; Z79.899 Other long term (current) drug therapy
CPT/HCPCS: 96372; 99283; A9270; J2405